=== PATIENT | male | born 1945 | race Caucasian/White ===

== ENCOUNTER 2017-06-13 13:28 | Inpatient (IN) | payer MEDICARE, MEDICAID ==
[~2017-06-13] VITALS: Ht 182.9 cm; Wt 73.5 kg
[~2017-06-13 13:28] MED LIST: ALBU18HF2 INH; AMLO2.5T PO; BECL25SP NS; DIVA500T4 PO; ENAL10TA75 PO; EZET10TA PO; FURO-144 PO; LURA40TA PO; NEPA1.7D OP; NIAC500T2 PO; POTA20TA83 PO; RANI150T8 PO; TAMS-12 PO
--- NOTE | 2017-06-13 13:45 | NUR ---
RADHA PA FROM [facility] FOR ABNORMAL LABS. NAD NOTED. VSS. SEEN BY MD FOR EVAL. SAFETY AND COMFORT MEASURES PROVIDED. WILL MONITOR.
--- NOTE | 2017-06-13 13:53 | NUR ---
laundry laborer at for blood draw.
[2017-06-13 14:01] LABS: BASOPHILS % (AUTO) 0.3 % (0.0-2.0); EOSINOPHILS # (AUTO) 0.2 /CMM (0.0-0.7); HEMATOCRIT 29 % (39-51); HEMOGLOBIN 9.4 g/dL (13.5-17.5); LYMPHOCYTES # (AUTO) 0.9 /CMM (0.8-4.8); LYMPHOCYTES % (AUTO) 18.4 % (20.0-44.0); MEAN CORPUSCULAR HEMOGLOBIN 27 PG (26.0-33.0); MEAN CORPUSCULAR HGB CONC 33 g/dl (31.0-36.0); MEAN CORPUSCULAR VOLUME 81 fL (80-96); MONOCYTES # (AUTO) 0.6 /CMM (0.1-1.30); MONOCYTES % (AUTO) 11.5 % (2.0-12.0); NEUTROPHILS # (AUTO) 3.4 /CMM (1.8-8.9); NEUTROPHILS % (AUTO) 65.8 % (43.0-81.0); PLATELET COUNT (AUTO) 278 /CMM (150-450); RDW COEFFICIENT OF VARIATION 12.5 (11.5-15.0); RED BLOOD CELL COUNT(AUTO) 3.53 MIL/uL (4.5-6.0); WHITE BLOOD COUNT (AUTO) 5.1 K/uL (4.3-11.0)
[2017-06-13 14:15] LABS: ALANINE AMINOTRANSFERASE 22 U/L (12-78); ALBUMIN 3.5 g/dL (3.4-5.0); ALKALINE PHOSPHATASE 93 U/L (46-116); ASPARTATE AMINOTRANSFERASE 24 U/L (15-37); BILIRUBIN,DIRECT 0.1 mg/dL (0.0-0.2); BILIRUBIN,TOTAL 0.2 mg/dL (0.2-1.0); CALCIUM, SERUM 8.2 mg/dL (8.5-10.1); CARBON DIOXIDE 23 mmol/L (21-32); CHLORIDE 86 mmol/L (98-107); CREATININE 1.2 mg/dL (0.6-1.3); GLUCOSE 90 mg/dL (74-106); LIPASE 185 U/L (73-393); POTASSIUM 4.9 mmol/L (3.5-5.1); TOTAL PROTEIN, SERUM 5.9 g/dL (6.4-8.2); UREA NITROGEN, BLOOD 25 mg/dL (7-18)
[2017-06-13 14:16] LABS: SODIUM SERUM 117 mmol/L (136-145)
[2017-06-13 15:27] LABS: APPEARANCE,URINE Clear (CLEAR); BILIRUBIN,URINE Negative (NEGATIVE); BLOOD, URINE Negative Ery/uL (NEGATIVE); COLOR,URINE Light yellow (YELLOW); KETONES,URINE Negative (NEGATIVE); LEUKOCYTE ESTERASE ,URINE Negative (NEGATIVE); NITRITE, URINE Negative (NEGATIVE); PROTEIN,URINE Negative (NEGATIVE); UGLUCOSE Negative (NEGATIVE); UROBILINOGEN,URINE 0.2 EU/dL (0.2)
[2017-06-13] MEDS ORDERED: ALBU2.5V13 NEB (15:44)
[2017-06-13] MEDS ORDERED: IPRA0.2S49 NEB (15:44)
[2017-06-13] MEDS ORDERED: MULT-213 PO (15:44)
[2017-06-13] MEDS ORDERED: MAG30ORA PO (15:44)
[2017-06-13] MEDS ORDERED: ZOLP5TAB7 PO (15:44)
[2017-06-13] MEDS ORDERED: HYDR-552 PO (15:44)
[2017-06-13] MEDS ORDERED: QUET25TA PO (15:44)
[2017-06-13] MEDS ORDERED: OXCA150T5 PO (15:44)
[2017-06-13] MEDS ORDERED: EZET10TA PO (15:46)
[2017-06-13] MEDS ORDERED: SODI1TAB3 PO (15:46)
[2017-06-13] MEDS ORDERED: HYDR-3026 PO (15:46)
--- NOTE | 2017-06-13 16:05 | NUR ---
[id number] TELE Addendum: 06/13/17 at 1606 by SHAD [id number] TELE
[2017-06-13] MEDS ORDERED: IV NS 0.9% 1,000 ML IV PRN (16:58)
[2017-06-13] MEDS ORDERED: ENALAPRIL MALEATE (10 MG) 10 MG TABLET PO SCH (17:00)
[2017-06-13] MEDS ORDERED: QUETIAPINE FUMARATE 25 MG TABLET PO SCH (17:00)
[2017-06-13] MEDS ORDERED: IPRATROPIUM NEB FS 0.5 MG/2.5 ML AMPUL.NEB NEB PRN (17:00)
[2017-06-13] MEDS ORDERED: ALBUTEROL FS 2.5 MG/0.5 ML VIAL.NEB NEB PRN (17:00)
[2017-06-13] MEDS ORDERED: ACETAMINOPHEN 325 MG TABLET PO PRN ×2 (17:00→17:15)
[2017-06-13] MEDS ORDERED: ONDANSETRON HCL/PF 4 MG/2 ML VIAL IVP PRN ×2 (17:00→17:15)
[2017-06-13] MEDS ORDERED: HYDROCODONE/APAP 5/325MG 1 EACH TABLET PO PRN (17:00)
[2017-06-13] MEDS ORDERED: ZOLPIDEM TARTRATE 5 MG TABLET PO PRN ×3 (17:00→17:15)
[2017-06-13] MEDS ORDERED: Z GUARD REMEDY 2 OZ OINT TP PRN ×2 (17:00→17:15)
[2017-06-13] MEDS ORDERED: MAG HYDROX/AL HYDROX/SIMETH 30 ML UDC PO PRN (17:00)
[2017-06-13] MEDS ORDERED: OXCARBAZEPINE 150 MG TABLET PO SCH (17:00)
[2017-06-13] MEDS ORDERED: MAGNESIUM HYDROXIDE 30 ML UDC PO PRN (17:00)
[2017-06-13] MEDS ORDERED: HYDROCODONE/APAP 5/325MG 1 EACH TABLET PO SCH ×2 (17:00→17:15)
--- NOTE | 2017-06-13 17:00 | NUR ---
REPORT GIVEN TO ROSIO ABERNATHY FOR TELE ROOM 315+
--- NOTE | 2017-06-13 17:15 | NUR ---
TELE ADMIT FROM ER AFTER REPORT RECEIVED FROM KIERA ABERNATHY. PATIENT ORIENTED TO PRIMARY RN, UNIT, ROOM, BED, AND UNIT POLICIES REGARDING PATIENT CARE AND VISITING HOURS. PATIENT NOW ON CONTINUOUS TELEMETRY MONITORING. READING ON ARRIVAL IS SR 77 W/ OCCASIONAL PVC'S. PATIENT WEIGHED BY BEDSCALE 161 LBS. AND ENCOURAGED TO CALL IF HE NEEDS ANYTHING. ALL QUESTIONS AND CONCERNS ADDRESSED. PATIENT VERBALIZED UNDERSTANDING.
[2017-06-13] MEDS ORDERED: hydrOXYzine PAMOATE 25 MG CAPSULE PO PRN (18:00)
[2017-06-13] MEDS: SODIUM CHLORIDE 1000 MG TABLET.SOL PO SCH (18:04)
[2017-06-13] MEDS: IV NS 0.9% 1,000 ML IV PRN (18:05)
--- NOTE | 2017-06-13 19:15 | NUR ---
CHANGE OF SHIFT REPORT PT RESTING COMFORTABLY IN BED. NO S/S OR C/O PAIN OR DISTRESS NOTED. SIDE RAILS UP X2, CALL LIGHT LEFT WITHIN REACH. PT KEPT CLEAN, DRY, AND COMFORTABLE. NO SIGNIFICANT CHANGES SINCE ADMISSION. REPORT GIVEN TO HAROON ABERNATHY.
--- NOTE | 2017-06-13 19:30 | NUR ---
MS/RN NOTES PT AWAKE, A/OX3, ON RA, BREATHING EVEN AND UNLABORED. DENIES SOB AND PAIN. HYPERVERBAL. IV TO RIGHT WRIST PATENT AND INTACT RUNNING IVF ORDERED. BED IN LOW/LOCKED POSITION WITH CALL LIGHT IN REACH. SIDE RAILS UPX2. WILL CONTINUE TO MONITOR
[2017-06-13 20:00] VITALS: BP 150/77
[2017-06-13] MEDS ORDERED: TAMSULOSIN 0.4 MG CAP.SR.24H PO SCH (22:00)
[2017-06-13] MEDS ORDERED: EZETIMIBE 10 MG TABLET PO SCH (22:00)
[2017-06-13] MEDS: TAMSULOSIN 0.4 MG CAP.SR.24H PO SCH (22:20)
[2017-06-13] MEDS: EZETIMIBE 10 MG TABLET PO SCH (22:20)
[2017-06-13] MEDS: HYDROCODONE/APAP 5/325MG 1 EACH TABLET PO PRN (23:31)
[2017-06-14] VITALS: BP 135/87
[2017-06-14] MEDS: ZOLPIDEM TARTRATE 5 MG TABLET PO PRN ×2 (01:55→23:59)
--- NOTE | 2017-06-14 06:12 | NUR ---
TELE/RN NOTES RECEIVED CALL FROM KITCHEN REGARDING PT'S DIET ORDER. PT IS ON REGULAR SOFT DIET HOWEVER KITCHEN IS ASKING TO CHANGE DIET ORDER TO JUST SOFT. FOOD OPTIONS THAT COME UP UNDER A REGULAR DIET MAY NOT NEED PT'S NEEDS FOR SOFT FOOD OPTIONS. WILL CHANGE ORDER ACCORDINGLY
--- NOTE | 2017-06-14 07:40 | NUR ---
MS/RN NOTES PT AWAKE, A/OX3, HYPERVERBAL. ON RA, BREATHING EVEN AND UNLABORED. DENIES PAIN, SOB, DISCOMFORT. NO S/S OF DISTRESS. PT PLEASANT AND COOPERATIVE, SWALLOWS PILLS WHOLE WITH WATER. IV TO RIGHT WRIST PATENT AND INTACT RUNNING IVF ORDERED. BED IN LOW/LOCKED POSITION WITH CALL LIGHT IN REACH. MADE PT COMFORTABLE THROUGHOUT SHIFT. ALL NEEDS MET AND ATTENDED. SIDE RAILS UPX2. ENDORSED TO AM SHIFT KARYN.
[2017-06-14 08:00] VITALS: BP 151/76
--- NOTE | 2017-06-14 08:19 | NUR ---
MS/RN OPENING NOTE PATIENT IN BED IN STABLE CONDITION. ALERT AND ORIENTED TIMES 3. ABLE TO MAKE DECISIONS AND NEEDS KNOWN. NO SIGNS OF ACUTE DISTRESS. NO COMPLAIN OF PAIN OR DISCOMFORT. ALL NEEDS ATTENDED TO AT THIS TIME. CALL LIGHT WITHIN REACH. WILL CONTINUE TO MONITOR TO ENSURE SAFETY.
[2017-06-14] MEDS: SODIUM CHLORIDE 1000 MG TABLET.SOL PO SCH ×3 (08:53→17:07)
[2017-06-14] MEDS: HYDROCODONE/APAP 5/325MG 1 EACH TABLET PO PRN ×2 (08:55→21:59)
[2017-06-14] MEDS: QUETIAPINE FUMARATE 25 MG TABLET PO SCH ×3 (08:56→17:01)
[2017-06-14] MEDS: OXCARBAZEPINE 150 MG TABLET PO SCH ×2 (08:56→16:59)
[2017-06-14] MEDS: MULTIVIT, IRON, MIN NO. 8, FA 1 TAB PO SCH (08:56)
[2017-06-14] MEDS: ENALAPRIL MALEATE (10 MG) 10 MG TABLET PO SCH ×2 (09:06→17:00)
[2017-06-14] MEDS: IV NS 0.9% 1,000 ML IV PRN (11:31)
[2017-06-14] MEDS: IPRATROPIUM NEB FS 0.5 MG/2.5 ML AMPUL.NEB NEB PRN (13:47)
[2017-06-14] MEDS: ALBUTEROL FS 2.5 MG/0.5 ML VIAL.NEB NEB PRN (13:47)
[2017-06-14 15:27] LABS: CALCIUM, SERUM 8.1 mg/dL (8.5-10.1); CARBON DIOXIDE 22 mmol/L (21-32); CHLORIDE 94 mmol/L (98-107); GLUCOSE 120 mg/dL (74-106); POTASSIUM 4.5 mmol/L (3.5-5.1); SODIUM SERUM 127 mmol/L (136-145); UREA NITROGEN, BLOOD 26 mg/dL (7-18)
[2017-06-14 16:00] VITALS: BP 130/69
--- NOTE | 2017-06-14 16:31 | NUR ---
MS/RN DR SAN SPOKE WITH DR FERRER AND RELAYED PATIENT'S BMP RESULTS OF SODIUM 127L WITH NO NEW ORDERS.
--- NOTE | 2017-06-14 18:57 | NUR ---
MS/RN CLOSING NOTE PATIENT IN BED AWAKE IN STABLE CONDITION. ALERT AND ORIENTED TIMES 3. NO SIGNS OF ACUTE DISTRESS. NO COMPLAIN OF PAIN OR DISCOMFORT. ALL NEEDS ATTENDED TO. CALL LIGHT WITHIN REACH. WILL ENDORSE TO CHANNEL DIRECTOR FOR CONTINUITY OF CARE.
[2017-06-14 20:00] VITALS: BP 129/72
--- NOTE | 2017-06-14 20:00 | NUR ---
MS VESSEL ENGINEER INITIAL NOTES SEEN PT IN BED RESTING WITH EYES CLOSED, RESPIRATION EVEN AND NON-LABORED, NOT IN ANY DISTRESS NOTED. NO SOB , WITH 02 AT 3LITERS VIA NASAL CANULA. STILL WITH IVF OF NS AT 75ML/HR INFUSING ON HIS RIGHT WRIST, PATENT AND INTACT. DENIES ANY PAIN OR ANY DISCOMFORT AT THIS TIME. KEPT HIM WARM AND COMFORTABLE AT ALL TIMES. PLACE CALL LIGHT AT REACH. WILL CONTINUE TO MONITOR.
[2017-06-14] MEDS: TAMSULOSIN 0.4 MG CAP.SR.24H PO SCH (21:55)
[2017-06-14] MEDS: EZETIMIBE 10 MG TABLET PO SCH (21:55)
--- NOTE | 2017-06-14 23:59 | NUR ---
ACTIVATED SLUDGE OPERATOR/NOTES AMBIEN 5MG GIVEN PER PT REQUESTED. EDUCATE PATIENT REGARDING POSSIBLE SIDE EFFECT AND PT UNDERSTOOD WELL. HE ALSO REQUESTED TO HAVE ANOTHER 5 MG IF HE CAN'T SLEEP BECAUSE HE USUALLY TOOK 10 MG . SPOKE TO HIM THAT I WILL LET MD KNOWS HE'S REQUEST. WILL CONTINUE TO MONITOR. PLACE CALL LIGHT AT REACH.
[2017-06-15] MEDS: ZOLPIDEM TARTRATE 5 MG TABLET PO PRN (01:28)
--- NOTE | 2017-06-15 01:28 | NUR ---
CHEMICAL ENGRAVER/NOTES RE-ASSESSMENT CHECKED PT HE'S STILL AWAKE , ANOTHER AMBIEN GIVEN PER PT REQUESTED. MAALOX ALSO ADMINISTERED FOR DYSPEPSIA. CONTINUE MONITORING .
[2017-06-15] MEDS: MAGNESIUM HYDROXIDE 30 ML UDC PO PRN (01:32)
--- NOTE | 2017-06-15 03:00 | NUR ---
MS DIRECTOR COMMERCIAL SALES NOTES PT CHECKED HE'S SLEEPING COMFORTABLY IN BED AFTER ANOTHER AMBIEN GIVEN ORDERED. WILL CONTINUE TO MONITOR.
[2017-06-15] MEDS: IV NS 0.9% 1,000 ML IV PRN (04:29)
--- NOTE | 2017-06-15 07:00 | NUR ---
MS INDUSTRIAL CUSTODIAN CLOSING NOTES PT AWAKE AT THIS TIME SEEING STANDING BESIDE HIS BED WHILE TALKING TO THE IRRIGATION SYSTEM OPERATOR. SLEPT WELL AFTER AMBIEN GIVEN LAST NIGHT . ALL DUE MEDS GIVEN AND ALL NEEDS MET. IVF STILL INFUSING ON HIS RIGHT WRIST, PATENT AND INTACT. STABLE RICKY THE NIGHT. ENDORSE TO AM NURSE FOR CONTINUITY OF CARE.
[2017-06-15 07:10] LABS: CALCIUM, SERUM 8.3 mg/dL (8.5-10.1); CARBON DIOXIDE 25 mmol/L (21-32); CHLORIDE 97 mmol/L (98-107); CREATININE 0.9 mg/dL (0.6-1.3); GLUCOSE 94 mg/dL (74-106); MAGNESIUM 1.7 mg/dL (1.8-2.4); PHOSPHORUS 4.1 mg/dL (2.5-4.9); POTASSIUM 4.8 mmol/L (3.5-5.1); SODIUM SERUM 127 mmol/L (136-145); UREA NITROGEN, BLOOD 27 mg/dL (7-18)
[2017-06-15 07:24] LABS: URINE SODIUM, RANDOM 76 mmol/l (40-220)
--- NOTE | 2017-06-15 07:33 | NUR ---
RN MS NOTES RECEIVED PATIENT IN BED VERBALLY RESPONSIVE, IN NO APPARENT DISTRESS. PATIENT DENIES PAIN, DENIES SOB. RIGHT WRIST IV LINE PATENT, INFUSING NS AT 75ML/HR. ALL NEEDS MET, CALL LIGHT WITHIN REACH.
[2017-06-15 08:00] VITALS: BP 140/74
[2017-06-15 08:00] LABS: THYROID STIMULATING HORMONE 4.012 uIU/mL (0.358-3.74); URIC ACID 3.3 mg/dL (2.6-7.2)
[2017-06-15] MEDS: MULTIVIT, IRON, MIN NO. 8, FA 1 TAB PO SCH (09:35)
[2017-06-15] MEDS: SODIUM CHLORIDE 1000 MG TABLET.SOL PO SCH ×3 (09:36→17:13)
[2017-06-15] MEDS: QUETIAPINE FUMARATE 25 MG TABLET PO SCH ×3 (09:36→17:14)
[2017-06-15] MEDS: OXCARBAZEPINE 150 MG TABLET PO SCH ×2 (09:36→17:14)
[2017-06-15] MEDS: ENALAPRIL MALEATE (10 MG) 10 MG TABLET PO SCH ×2 (09:36→17:14)
[2017-06-15 09:47] LABS: OSMOLALITY,URINE 312 mOS/kg (340-1090)
--- NOTE | 2017-06-15 10:09 | NUR ---
WOUND CARE CONSULT GUIDE TRAVEL WILL DEFER BACK RASHES TO MD AT THIS TIME. PATIENT WITH CURRENT KOFFI AT 21 AND PER NURSING STAFF PATIENT IS AMBULATORY. WILL SEE PRN.
[2017-06-15] MEDS: IPRATROPIUM NEB FS 0.5 MG/2.5 ML AMPUL.NEB NEB PRN (10:29)
[2017-06-15] MEDS: ALBUTEROL FS 2.5 MG/0.5 ML VIAL.NEB NEB PRN ×2 (10:29→20:29)
[2017-06-15] MEDS: HYDROCODONE/APAP 5/325MG 1 EACH TABLET PO PRN ×3 (12:34→22:01)
[2017-06-15] MEDS: Magnesium 1GM/D5W 100ML PREMIX 100 ML IV SCH ×2 (13:26→14:45)
[2017-06-15 16:00] VITALS: BP 121/60
--- NOTE | 2017-06-15 19:20 | NUR ---
RN MS CLOSING NOTES PATIENT IN BED,VERBALLY RESPONSIVE, NO APPARENT DISTRESS NOTED, DENIES PAIN, DENIES SOB. ALL DUE MEDS GIVEN ALL NEEDS MET. WILL ENDORSE CARE TO PM SHIFT.
--- NOTE | 2017-06-15 19:25 | NUR ---
MS RN NOTES RECEIVED ON BED A/O X3,BREATHING REGULAR,AMBULATE WITH ASSIST.PATIENT IS A POOR HISTORIAN.SALINE LOCK RIGHT WRIST INTACT AND PATENT.DENIES DISCOMFORTS AT THE MOMENT.CALL LIGHT IN REACH,NEEDS ANTICIPATED.
[2017-06-15 20:03] VITALS: BP 145/67
[2017-06-15 20:11] VITALS: BP 145/67
[2017-06-15] MEDS: MAG HYDROX/AL HYDROX/SIMETH 30 ML UDC PO PRN (20:13)
--- NOTE | 2017-06-15 20:13 | NUR ---
MS RN NOTES FEELING HAVING ACID REFLUX,MAALOX 30ML PO ADMINISTERED PER PATIENT REQUEST.
[2017-06-15] MEDS: TAMSULOSIN 0.4 MG CAP.SR.24H PO SCH (21:58)
[2017-06-15] MEDS: EZETIMIBE 10 MG TABLET PO SCH (21:58)
--- NOTE | 2017-06-15 22:01 | NUR ---
MS RN NOTES PAIN MANAGEMENT C/O GENERALIZED PAIN 7/10 ON PAIN SCALE.NORCO 5/325MG 1 TAB PO GIVEN
--- NOTE | 2017-06-16 | NUR ---
MS RN NOTES SILL AWAKE,WATCHING TV PROGRAM.PAIN SUBSIDED
[2017-06-16] MEDS: ALBUTEROL FS 2.5 MG/0.5 ML VIAL.NEB NEB PRN ×2 (01:42→13:20)
[2017-06-16] MEDS: ZOLPIDEM TARTRATE 5 MG TABLET PO PRN (02:00)
[2017-06-16] MEDS ORDERED: diphenhydrAMINE HCL 50 MG CAPSULE ONE (02:04)
[2017-06-16] MEDS: HYDROCODONE/APAP 5/325MG 1 EACH TABLET PO PRN ×3 (02:04→16:07)
--- NOTE | 2017-06-16 02:04 | NUR ---
MS RN NOTES C/O INSOMNIA.AMBIEN 5MG PO GIVEN
--- NOTE | 2017-06-16 02:05 | NUR ---
MS RN NOTES C/O GENERALIZED PAIN,NORCO 5/325MG 1 TAB PO GIVEN
[2017-06-16] MEDS: diphenhydrAMINE HCL 50 MG CAPSULE PO PRN ×2 (02:07→15:25)
--- NOTE | 2017-06-16 02:07 | NUR ---
MS RN NOTES C/O ITCHINESS,MEDICATED WITH BENADRYL 50MG PO NEW ORDER FOR ITCHINESS
[2017-06-16 06:40] LABS: CALCIUM, SERUM 8.5 mg/dL (8.5-10.1); CARBON DIOXIDE 23 mmol/L (21-32); CHLORIDE 96 mmol/L (98-107); GLUCOSE 93 mg/dL (74-106); MAGNESIUM 2.1 mg/dL (1.8-2.4); SODIUM SERUM 128 mmol/L (136-145); UREA NITROGEN, BLOOD 32 mg/dL (7-18)
--- NOTE | 2017-06-16 06:52 | NUR ---
MS RN NOTES SLEPT ONLY ABOUT 3 HOURS AT NIGHT.A/O X2-3.POOR HISTORIAN,CALL LIGHT IN REACH,NEEDS ATTENDED.IN NO ACUTE DISTRESS.CALL LIGHT IN REACH,NEEDS ATTENDED,
--- NOTE | 2017-06-16 07:10 | NUR ---
MS RN OPENING NOTES RECEIVED PT FROM NIGHTSHIFT NURSE IN STABLE CONDITION. PT IS A/O X3. NO SOB OR SIGNS OF DISTRESS NOTED. BREATHING IS EVEN AND UNLABORED. PT REQUEST PRN NORCO MEDICATION FOR GENERALIZED PAIN. RTES HIS PAIN 03/25. VITAL SIGNS WNL. WILL ADMINISTER PRN PAIN MEDICATION. IV PRESENT ON RIGHT WRIST 20G H/L. IV IS PATENT TO NS FLUSH, DRY, AND INTACT. NO REDNESS OR SIGNS OF INFILTRATION NOTED. BED IN LOW LOCKED POSITION, SIDE RAILS UP X2, CALL LIGHT WITHIN EASY REACH. WILL CONTINUE TO MONITOR.
[2017-06-16 08:00] VITALS: BP 147/77
[2017-06-16] MEDS: SODIUM CHLORIDE 1000 MG TABLET.SOL PO SCH ×2 (08:37→12:06)
[2017-06-16] MEDS: QUETIAPINE FUMARATE 25 MG TABLET PO SCH ×2 (08:37→12:06)
[2017-06-16] MEDS: MULTIVIT, IRON, MIN NO. 8, FA 1 TAB PO SCH (08:38)
[2017-06-16] MEDS: OXCARBAZEPINE 150 MG TABLET PO SCH (08:38)
[2017-06-16] MEDS: ENALAPRIL MALEATE (10 MG) 10 MG TABLET PO SCH (08:39)
[2017-06-16] MEDS: MAG HYDROX/AL HYDROX/SIMETH 30 ML UDC PO PRN (11:42)
[2017-06-16] MEDS: MAGNESIUM HYDROXIDE 30 ML UDC PO PRN (11:42)
[2017-06-16] MEDS: IPRATROPIUM NEB FS 0.5 MG/2.5 ML AMPUL.NEB NEB PRN (13:20)
[2017-06-16 16:07] VITALS: BP 138/58
--- NOTE | 2017-06-16 16:30 | NUR ---
MS HUMAN RESOURCE MANAGER NOTES PT. WAS DISCHARGED FROM UNIT IN STABLE CONDITION. REPORT WAS GIVEN TO RYAN THE NURSING RN FIELD AT [facility]. PT. LEFT VIA AMBULANCE TRANSPORT. PT SIGNED ALL DISCHARGE PAPERWORK AND EXPRESSED UNDERSTANDING OF DISCHARGE INSTRUCTIONS. ALL BELONGINGS WERE TAKEN WITH THE PT. ALL NEEDS WERE MET DURING SHIFT AND ORDERS CARRIED OUR ACCORDINGLY.
== END 2017-06-16 16:29 | DRG 643 ==
LOC: ER 13:29 → TELE 17:32 → MED 21:24
PROVIDERS: ADMIT Internal Medicine; ATTEND Internal Medicine
DX: E22.2 Syndrome of inappropriate secretion of antidiuretic hormone (principal); N17.0 Acute kidney failure with tubular necrosis; J44.9 Chronic obstructive pulmonary disease, unspecified; E78.5 Hyperlipidemia, unspecified; M19.90 Unspecified osteoarthritis, unspecified site; F17.210 Nicotine dependence, cigarettes, uncomplicated; G30.9 Alzheimer's disease, unspecified; F02.80 Dementia in other diseases classified elsewhere, unspecified severity, without behavioral disturbance, psychotic disturbance, mood disturbance, and anxiety; I10 Essential (primary) hypertension; F43.10 Post-traumatic stress disorder, unspecified; T42.1X5A Adverse effect of iminostilbenes, initial encounter; T42.6X5A Adverse effect of other antiepileptic and sedative-hypnotic drugs, initial encounter; Y92.009 Unspecified place in unspecified non-institutional (private) residence as the place of occurrence of the external cause; R63.1 Polydipsia; F20.9 Schizophrenia, unspecified
CPT/HCPCS: 36415; 80048-TC; 80076-TC; 81000-TC; 83690-TC; 83735-TC; 83935-TC; 84100-TC; 84300-TC; 84443-TC; 84550-TC; 85025-TC; 87081-TC; A4606; A6402; J3475; J7030; Q0163; Z7610

== ENCOUNTER 2017-06-19 23:43 | Inpatient (IN) | payer MEDICARE, MEDICAID ==
[~2017-06-19] VITALS: Ht 172.7 cm; Wt 73.1 kg
[~2017-06-19 23:43] MED LIST changes: -ALBU18HF2 INH; +ALBU2.5V13 NEB; -AMLO2.5T PO; -BECL25SP NS; -DIVA500T4 PO; -FURO-144 PO; +HYDR-3026 PO; +HYDR-552 PO; +IPRA0.2S49 NEB; -LURA40TA PO; +MAG30ORA PO; +MULT-213 PO; -NEPA1.7D OP; -NIAC500T2 PO; +OXCA150T5 PO; -POTA20TA83 PO; +QUET25TA PO; -RANI150T8 PO; +SODI1TAB3 PO; +ZOLP5TAB7 PO
--- NOTE | 2017-06-19 23:50 | NUR ---
TO BED 1 [facility] PRIVATE AMBULANCE C/O R EYEBROW LACERATION S/P GLF PER PT REPORT. RECEIVE PT AAOX4 NO ACUTE DISTRESS NOTED, RESP EVEN AND UNLABORED. PLACE PT ON CARDIAC MONITORING, CONTINUOUS POX. ER MD AT BEDSIDE TO EVAL PT.
[2017-06-20] VITALS (7 sets, daily range): BP systolic 104–160; BP diastolic 58–83
--- NOTE | 2017-06-20 00:13 | NUR ---
STARTED SL 18G TO R FOREARM, BLOOD DRAWN AND SENT TO LAB.
[2017-06-20 00:36] LABS: BASOPHILS % (AUTO) 0.3 % (0.0-2.0); EOSINOPHILS % (AUTO) 0.2 % (0.0-6.0); HEMATOCRIT 37 % (39-51); HEMOGLOBIN 12.3 g/dL (13.5-17.5); LYMPHOCYTES # (AUTO) 2.6 /CMM (0.8-4.8); LYMPHOCYTES % (AUTO) 23.3 % (20.0-44.0); MEAN CORPUSCULAR HEMOGLOBIN 28 PG (26.0-33.0); MEAN CORPUSCULAR HGB CONC 34 g/dl (31.0-36.0); MEAN CORPUSCULAR VOLUME 84 fL (80-96); MONOCYTES # (AUTO) 0.5 /CMM (0.1-1.30); MONOCYTES % (AUTO) 4.5 % (2.0-12.0); NEUTROPHILS # (AUTO) 8.1 /CMM (1.8-8.9); NEUTROPHILS % (AUTO) 71.7 % (43.0-81.0); PLATELET COUNT (AUTO) 275 /CMM (150-450); RED BLOOD CELL COUNT(AUTO) 4.35 MIL/uL (4.5-6.0); WHITE BLOOD COUNT (AUTO) 11.3 K/uL (4.3-11.0)
[2017-06-20 00:45] LABS: CALCIUM, SERUM 8.9 mg/dL (8.5-10.1); CARBON DIOXIDE 23 mmol/L (21-32); CHLORIDE 92 mmol/L (98-107); CREATININE 1.2 mg/dL (0.6-1.3); GLUCOSE 122 mg/dL (74-106); POTASSIUM 4.5 mmol/L (3.5-5.1); SODIUM SERUM 123 mmol/L (136-145); UREA NITROGEN, BLOOD 30 mg/dL (7-18)
--- NOTE | 2017-06-20 00:57 | NUR ---
PT TRANSPORTED TO RADIOLOGY FOR CT.
[2017-06-20 01:07] LABS: BILIRUBIN,DIRECT 0.1 mg/dL (0.0-0.2); BILIRUBIN,TOTAL 0.4 mg/dL (0.2-1.0)
[2017-06-20 01:08] LABS: ALANINE AMINOTRANSFERASE 26 U/L (12-78); ALBUMIN 3.7 g/dL (3.4-5.0); ALKALINE PHOSPHATASE 97 U/L (46-116); ASPARTATE AMINOTRANSFERASE 25 U/L (15-37); TOTAL PROTEIN, SERUM 6.5 g/dL (6.4-8.2)
[2017-06-20 01:18] LABS: INR 0.92 (0.87-1.13); PROTHROMBIN TIME 9.8 SECS (9.5-12.7); TROPONIN I < 0.017 ng/mL (0.00-0.056)
[2017-06-20] MEDS ORDERED: IV NS 0.9% 1,000 ML BAG IV ONE (02:00)
--- NOTE | 2017-06-20 02:51 | NUR ---
ER SPOKE TO [facility] TRAN DNP REGARDING PT ADMISSION.
[2017-06-20] MEDS ORDERED: MAG HYDROX/AL HYDROX/SIMETH 30 ML UDC PO PRN (03:00)
[2017-06-20] MEDS ORDERED: IV NS 0.9% 1,000 ML IV PRN (03:02)
--- NOTE | 2017-06-20 03:17 | NUR ---
REPORT CALLED TO [facility]ER[facility] LEON. WILL TRANSPORT PT VIA ACLS PROTOCOL.
[2017-06-20 03:28] LABS: APPEARANCE,URINE CLEAR (CLEAR); BILIRUBIN,URINE NEGATIVE (NEGATIVE); COLOR,URINE YELLOW (YELLOW); KETONES,URINE NEGATIVE (NEGATIVE); LEUKOCYTE ESTERASE ,URINE NEGATIVE (NEGATIVE); NITRITE, URINE NEGATIVE (NEGATIVE); PH,URINE 6.5 (5.0-8.0); PROTEIN,URINE NEGATIVE (NEGATIVE); UGLUCOSE NEGATIVE (NEGATIVE); UROBILINOGEN,URINE 0.2 EU/dL (0.2)
[2017-06-20] MEDS ORDERED: ONDANSETRON HCL/PF 4 MG/2 ML VIAL IVP PRN (03:30)
[2017-06-20] MEDS ORDERED: MORPHINE SULFATE INJ 4 MG/ML DISP.SYRIN IV PRN (03:30)
--- NOTE | 2017-06-20 03:30 | NUR ---
RN OPEN NOTES RECEIVED PATIENT FROM ER VIA GURODNEY. A/O X3. NO SIGNS OF DISTRESS OR DISCOMFORT. BREATHING EVEN AND UNLABORED. IV ACCESS IN RFA WITH NS INFUSING, PATENT AND INTACT, NO SIGNS OF REDNESS OR INFILTRATION. ORIENTED PATIENT TO UNIT AND ROOM. BED IN LOW LOCKED POSITION. CALL LIGHT WITHIN REACH. WILL CONTINUE TO MONITOR.
[2017-06-20 03:34] LABS: BLOOD, URINE NEGATIVE Ery/uL (NEGATIVE)
[2017-06-20] MEDS ORDERED: ENOXAPARIN SODIUM 40 MG/0.4 ML DISP.SYRIN SQ ONE (04:12)
[2017-06-20] MEDS ORDERED: HYDROCODONE/APAP 5/325MG 1 EACH TABLET ONE (04:13)
[2017-06-20 04:18] LABS: CALCIUM, SERUM 8.6 mg/dL (8.5-10.1); CARBON DIOXIDE 22 mmol/L (21-32); CHLORIDE 95 mmol/L (98-107); CREATININE 1.1 mg/dL (0.6-1.3); GLUCOSE 117 mg/dL (74-106); POTASSIUM 4.3 mmol/L (3.5-5.1); SODIUM SERUM 127 mmol/L (136-145); UREA NITROGEN, BLOOD 26 mg/dL (7-18)
[2017-06-20] MEDS: HYDROCODONE/APAP 5/325MG 1 EACH TABLET PO PRN ×4 (04:21→22:51)
--- NOTE | 2017-06-20 04:21 | NUR ---
RN NOTES ADMINISTERED NORCO 5/325 ORDERED FOR GENERALIZED PAIN. VSS. WILL CONTINUE TO MONITOR.
[2017-06-20] MEDS: ENOXAPARIN SODIUM 40 MG/0.4 ML DISP.SYRIN SQ SCH (04:22)
--- NOTE | 2017-06-20 06:53 | NUR ---
RN CLOSING NOTES PATIENT RESTING IN BED, EASILY AROUSABLE TO NAME. A/O X3. NO SIGNS OF DISTRESS OR DISCOMFORT. BREATHING EVEN AND UNLABORED. IV ACCESS IN RFA WITH NS INFUSING PATIENT AND INTACT, NO SIGNS OF REDNESS OR INFILTRATION. BED IN LOW LOCKED POSITION WITH SIDE RAILS X2. CALL LIGHT WITHIN REACH. WILL ENDORSE TO AM SHIFT FOR KARYN. .
--- NOTE | 2017-06-20 07:20 | NUR ---
RN NOTES PATIENT RESTING IN BED, EASILY AROUSABLE TO NAME. A/O X3. NO SIGNS OF DISTRESS OR DISCOMFORT. BREATHING EVEN AND UNLABORED. IV ACCESS IN RFA WITH NS INFUSING PATIENT AND INTACT, NO SIGNS OF REDNESS OR INFILTRATION. BED IN LOW LOCKED POSITION WITH SIDE RAILS X2. CALL LIGHT WITHIN REACH. WILL CONTINUE TO MONITOR ACCORDINGLY.
[2017-06-20] MEDS ORDERED: OXCARBAZEPINE 150 MG TABLET PO SCH (09:00)
[2017-06-20] MEDS: SODIUM CHLORIDE 1000 MG TABLET.SOL PO SCH ×3 (09:51→18:02)
[2017-06-20] MEDS: MULTIVITAMINS,THERAGRAN 1 UDTAB TABLET PO SCH (09:52)
[2017-06-20] MEDS: QUETIAPINE FUMARATE 25 MG TABLET PO SCH ×3 (09:52→18:04)
[2017-06-20] MEDS: ENALAPRIL MALEATE (10 MG) 10 MG TABLET PO SCH ×2 (09:53→17:00)
[2017-06-20] MEDS: IV NS 0.9% 1,000 ML IV PRN (13:07)
[2017-06-20] MEDS: IPRATROPIUM NEB FS 0.5 MG/2.5 ML AMPUL.NEB NEB PRN ×2 (15:04→19:54)
[2017-06-20] MEDS: ALBUTEROL FS 2.5 MG/0.5 ML VIAL.NEB NEB PRN ×2 (15:04→19:54)
[2017-06-20 15:38] LABS: THYROID STIMULATING HORMONE 2.346 uIU/mL (0.358-3.74)
--- NOTE | 2017-06-20 19:00 | NUR ---
RN NOTES PATIENT IN BED RESTING. NO ACUTE DISTRESS, NO SOB NOTED. DENIES PAIN AT THE MOMENT. ALL NEEDS ATTENDED AND PROVIDED. KEPT PATIENT SAFE AND COMFORTABLE. BED LOW POSITION, SIDERAILS UPX2, CALL LIGHT IN REACH. ENDORSED TO DIRECTOR OF BROADCAST RN FOR CONTINUITY OF CARE.
[2017-06-20] MEDS: hydrOXYzine 10 MG TABLET PO PRN (19:17)
--- NOTE | 2017-06-20 19:30 | NUR ---
MS RN NOTES RECEIVED SITTING ON BED,A/O X2-3,FORGETFUL AT TIMES,SALINE LOCK RFA INTACT AND PATENT,INFUSING IVF NS AT 100ML/HR RATE.O2 SAT 97% ON ROOM AIR.WITH SLIGHT TEMP OF 100.AMBULATE WITH WALKER.CALL LIGHT IN REACH,NEEDS ANTICIPATED.
[2017-06-20] MEDS ORDERED: EZETIMIBE 10 MG TABLET PO SCH (22:00)
[2017-06-20] MEDS: TAMSULOSIN 0.4 MG CAP.SR.24H PO SCH (22:37)
--- NOTE | 2017-06-20 22:51 | NUR ---
MS RN NOTES PAIN MANAGEMENT C/O LOWER BACK PAIN 7/10 ON PAIN SCALE.MEDICATED WITH NORCO 5/325MG,1 TAB PO ORDERED.WILL MONITOR FOR RELIEF.
[2017-06-21] MEDS: IPRATROPIUM NEB FS 0.5 MG/2.5 ML AMPUL.NEB NEB PRN ×5 (00:10→23:13)
[2017-06-21] MEDS: ALBUTEROL FS 2.5 MG/0.5 ML VIAL.NEB NEB PRN ×5 (00:10→23:13)
[2017-06-21] MEDS: hydrOXYzine 10 MG TABLET PO PRN ×2 (01:19→13:40)
[2017-06-21] MEDS: ZOLPIDEM TARTRATE 5 MG TABLET PO PRN ×2 (01:20→23:43)
--- NOTE | 2017-06-21 03:00 | NUR ---
MS RN NOTES PAIN MANAGEMENT AWAKE,C/O BACK PAIN 7/10 ON PAIN SCALE.MEDICATED WITH NORCO 5/325MG,1 TAB PO ORDERED
[2017-06-21] MEDS: HYDROCODONE/APAP 5/325MG 1 EACH TABLET PO PRN ×3 (03:04→13:39)
[2017-06-21] MEDS: ENOXAPARIN SODIUM 40 MG/0.4 ML DISP.SYRIN SQ SCH (03:05)
--- NOTE | 2017-06-21 03:10 | NUR ---
MS RN NOTES DUE LOVENOX 40MG GIVEN SQ VIA RIGHT LOWER ABDOMEN
[2017-06-21] MEDS: IV NS 0.9% 1,000 ML IV PRN (04:33)
[2017-06-21 06:12] VITALS: BP_SYST 108; BP_SYST 110; BP_SYST 112; BP_DIAS 48; BP_DIAS 51
--- NOTE | 2017-06-21 06:47 | NUR ---
MS RN NOTES SLEPT WITH INTERVAL,AWAKE MOST OF THE NIGHT EVEN WITH SLEEPING PILL.FALL PRECAUTION OBSERVED,AMBULATE WITH ASSIST,IVF INFUSING,CALL LIGHT IN REACH,NEEDS ATTENDED.WILL ENDORSE TO DAY NURSE FOR KARYN.
[2017-06-21 06:48] LABS: OSMOLALITY,URINE 314 mOS/kg (340-1090)
[2017-06-21 06:59] LABS: URINE SODIUM, RANDOM 79 mmol/l (40-220)
[2017-06-21 07:08] LABS: BASOPHILS # (AUTO) 0.1 /CMM (0.0-0.2); BASOPHILS % (AUTO) 1.2 % (0.0-2.0); EOSINOPHILS # (AUTO) 0.4 /CMM (0.0-0.7); EOSINOPHILS % (AUTO) 8.4 % (0.0-6.0); HEMATOCRIT 28 % (39-51); HEMOGLOBIN 9.2 g/dL (13.5-17.5); LYMPHOCYTES # (AUTO) 0.5 /CMM (0.8-4.8); LYMPHOCYTES % (AUTO) 11.6 % (20.0-44.0); MEAN CORPUSCULAR HEMOGLOBIN 28 PG (26.0-33.0); MEAN CORPUSCULAR HGB CONC 34 g/dl (31.0-36.0); MEAN CORPUSCULAR VOLUME 82 fL (80-96); MONOCYTES # (AUTO) 0.4 /CMM (0.1-1.30); MONOCYTES % (AUTO) 8.8 % (2.0-12.0); PLATELET COUNT (AUTO) 186 /CMM (150-450); RDW COEFFICIENT OF VARIATION 13.6 (11.5-15.0); RED BLOOD CELL COUNT(AUTO) 3.34 MIL/uL (4.5-6.0); WHITE BLOOD COUNT (AUTO) 4.3 K/uL (4.3-11.0)
[2017-06-21 07:23] LABS: ALANINE AMINOTRANSFERASE 34 U/L (12-78); ALBUMIN 3.3 g/dL (3.4-5.0); ALKALINE PHOSPHATASE 98 U/L (46-116); ASPARTATE AMINOTRANSFERASE 31 U/L (15-37); BILIRUBIN,TOTAL 0.3 mg/dL (0.2-1.0); CALCIUM, SERUM 8.3 mg/dL (8.5-10.1); CARBON DIOXIDE 23 mmol/L (21-32); CHLORIDE 96 mmol/L (98-107); CREATININE 0.9 mg/dL (0.6-1.3); GLUCOSE 93 mg/dL (74-106); MAGNESIUM 1.4 mg/dL (1.8-2.4); PHOSPHORUS 3.4 mg/dL (2.5-4.9); POTASSIUM 4.4 mmol/L (3.5-5.1); SODIUM SERUM 127 mmol/L (136-145); TOTAL PROTEIN, SERUM 6.2 g/dL (6.4-8.2); UREA NITROGEN, BLOOD 20 mg/dL (7-18)
[2017-06-21 07:27] LABS: CHOLESTEROL 114 mg/dL (<200); HDL CHOLESTEROL 79 mg/dL (40-60); LDL 28 mg/dL (0-99); THYROID STIMULATING HORMONE 5.334 uIU/mL (0.358-3.74); TRIGLYCERIDES 27 mg/dL (30-150); URIC ACID 3.8 mg/dL (2.6-7.2)
[2017-06-21 07:48] LABS: IRON, SERUM 11 ug/dl (50-175); TOTAL IRON BINDING CAPACITY 286 ug/dl (250-450)
[2017-06-21 08:00] VITALS: BP 145/70
--- NOTE | 2017-06-21 08:22 | NUR ---
RN MS NOTES PT SEEN BY DR. HER, ORDER GIVEN TO CHANGE DIET TO REGULAR DIET, NOTED AND CARRIED OUT.
[2017-06-21] MEDS: MULTIVITAMINS,THERAGRAN 1 UDTAB TABLET PO SCH (08:33)
[2017-06-21] MEDS: QUETIAPINE FUMARATE 25 MG TABLET PO SCH ×3 (08:35→16:31)
[2017-06-21] MEDS: ENALAPRIL MALEATE (10 MG) 10 MG TABLET PO SCH ×2 (08:35→16:31)
[2017-06-21] MEDS: SODIUM CHLORIDE 1000 MG TABLET.SOL PO SCH ×3 (08:35→16:31)
--- NOTE | 2017-06-21 10:15 | NUR ---
RN MS NOTES PT AWAKE, AMBULATES INSIDE HIS ROOM, SEEN BY DR. VALDIVIA, PT REFUSED CT OF THE SPINE TODAY, SAYS HE PREFERS TO HAVE MRI, DR. VALDIVIA INFORMED, PER MD, OK NOT TO DO CT OR MRI, PLAN OF CARE DISCUSSED WITH PT, VERBALIZED UNDERSTANDING, MD ALSO ORDERED PSYCH AND WOUND CONSULT FOR PT.
[2017-06-21] MEDS: Magnesium 1GM/D5W 100ML PREMIX 100 ML IV SCH ×4 (11:49→17:52)
--- NOTE | 2017-06-21 13:23 | NUR ---
WOUND CARE CONSULT: PT REFUSED FULL SKIN ASSESSMENT. PT WEARING BACK BRACE. PT STATES HAS RASH ON HIS BACK BUT REFUSED TO ALLOW ASSESSMENT. DEFER TO MD FOR RASH. RECOMMENDATIONS MADE FOR SKIN PROTECTION AND DISCUSSED WITH NURSING STAFF. PT IS CONTINENT AND AMBULATORY. WILL SEE PRN. HUTTON IN AGREEMENT WITH PLAN OF CARE. Addendum: 06/21/17 at 1327 by ЮЛИЯ RICARDO WNDNU Amended: Links added.
[2017-06-21] MEDS ORDERED: Z GUARD REMEDY 2 OZ OINT TP PRN (13:30)
[2017-06-21] MEDS: SOD FERRIC GLUC 125 MG in IV NS 0.9% 100 ML IV SCH (15:05)
[2017-06-21] MEDS: Z GUARD REMEDY 2 OZ OINT TP SCH (15:14)
[2017-06-21 16:17] VITALS: BP 166/78
[2017-06-21] MEDS: ACETAMINOPHEN 325 MG TABLET PO PRN (16:30)
--- NOTE | 2017-06-21 19:00 | NUR ---
RN MS NOTES PT IN BED, AWAKE, ALERT AND ORIENTED, NO COMPLAINT OF PAIN, NOT IN DISTRESS, PT ABLE TO AMBULATE INSIDE HIS ROOM, PM MEDS GIVEN, SEEN BY DR. MICHAELS, ORDERS NOTED AND CARRIED OUT, ALL NEEDS ATTENDED, CALL LIGHT WITHIN REACH AT ALL TIMES.
--- NOTE | 2017-06-21 19:30 | NUR ---
RN NOTES RECEIVED PT. AWAKE ON BED, A/OX 3 WITH CONFUSION, AMBULATE WITH WALKER, REFUSED TO HAVE BODY CHECK, DENIES PAIN, NO SOB, ALL LIGTH WITHIN REACH, SIDERAILS UPX2 , CONTINUE TO MONITOR
[2017-06-21 20:00] VITALS: BP 148/75
[2017-06-21] MEDS: TAMSULOSIN 0.4 MG CAP.SR.24H PO SCH (21:51)
--- NOTE | 2017-06-21 22:50 | NUR ---
RN NOTES SPOKE TO DR. BEARD AND INFORM HIM REGARDING PT. REFUSING FOR THE PROCEDURE. DR. BEARD STILL WANT TO KEEP PT. ON NPO EXCEPT MEDS. ORDER NOTED AND CARRIED OUT
--- NOTE | 2017-06-21 23:35 | NUR ---
RN NOTES SPOKE TO DR. BALLARD AND INFORMED HIM THAT PT. IS FOR EGD TOMORROW. DR. BALLARD HOLD THE LOVENOX FOR SARA , CHRIS NOTED AND CARRIED OUT
--- NOTE | 2017-06-21 23:45 | NUR ---
RN NOTES PT. ASKED FOR SLEEPING PILL- AMBIEN 5 MG PO GIVEN ORDERED, V/S STABLE
[2017-06-22] MEDS: ALBUTEROL FS 2.5 MG/0.5 ML VIAL.NEB NEB PRN ×3 (03:12→13:52)
[2017-06-22] MEDS: IPRATROPIUM NEB FS 0.5 MG/2.5 ML AMPUL.NEB NEB PRN ×3 (03:12→13:52)
[2017-06-22] MEDS: ENOXAPARIN SODIUM 40 MG/0.4 ML DISP.SYRIN SQ SCH (03:30)
[2017-06-22] MEDS: HYDROCODONE/APAP 5/325MG 1 EACH TABLET PO PRN ×4 (03:38→22:03)
--- NOTE | 2017-06-22 03:39 | NUR ---
RN NOTES COMPLAINED OF GENERALIZED PAIN- NORCO 5/325 MG PO GIVEN ORDERED, V/S STABLE
[2017-06-22] MEDS: ACETAMINOPHEN 325 MG TABLET PO PRN (04:40)
--- NOTE | 2017-06-22 04:41 | NUR ---
RN NOTES COMPLAINED OF HEADACHE AND ASKING FOR TYLENOL - TYLENOL 650M GPO GIVEN ORDERED, V/S STABLE
[2017-06-22 06:19] VITALS: BP_SYST 150; BP_SYST 152; BP_SYST 164; BP_DIAS 65; BP_DIAS 67; BP_DIAS 75
--- NOTE | 2017-06-22 06:54 | NUR ---
RN NOTES ELECTRIC TRAIN DRIVER CAME AND READY TO HOME THERAPY TEACHER THE PT. PT DENIES PAIN, NO SOB, MORNING CARE RENDERED, IV LINE PATENT NO REDNESS OR SWOLLEN, PT NEEDS ATTENDED. ENDORSED TO DAYSHIFT NURSE FOR CONTINUITY OF CARE
[2017-06-22 07:38] LABS: CALCIUM, SERUM 8.8 mg/dL (8.5-10.1); CARBON DIOXIDE 20 mmol/L (21-32); CHLORIDE 99 mmol/L (98-107); GLUCOSE 101 mg/dL (74-106); MAGNESIUM 2.1 mg/dL (1.8-2.4); SODIUM SERUM 130 mmol/L (136-145); UREA NITROGEN, BLOOD 28 mg/dL (7-18)
[2017-06-22 08:25] VITALS: BP 149/73
--- NOTE | 2017-06-22 08:25 | NUR ---
RN MS NOTES PT BACK FROM [facility]. VIA CONG WITH O.R. STAFF, PT AWAKE, VERBALLY RESPONSIVE, NO COMPLAINT OF PAIN, NOT IN DISTRESS, POST PROCEDURE ORDERS NOTED AND CARRIED OUT, PT SEEN BY DR. HER, ORDERS GIVEN.
[2017-06-22 08:40] VITALS: BP 127/91
[2017-06-22 09:10] VITALS: BP 146/96
[2017-06-22] MEDS: SODIUM CHLORIDE 1000 MG TABLET.SOL PO SCH ×3 (09:31→17:21)
[2017-06-22] MEDS: QUETIAPINE FUMARATE 25 MG TABLET PO SCH ×3 (09:31→17:22)
[2017-06-22] MEDS: ENALAPRIL MALEATE (10 MG) 10 MG TABLET PO SCH ×2 (09:32→17:23)
[2017-06-22] MEDS: MULTIVITAMINS,THERAGRAN 1 UDTAB TABLET PO SCH (09:32)
[2017-06-22] MEDS: Z GUARD REMEDY 2 OZ OINT TP SCH (09:33)
[2017-06-22] MEDS: NITROGLYCERIN 30 GM TUBE TP SCH ×2 (10:31→22:01)
[2017-06-22] MEDS: hydrOXYzine 10 MG TABLET PO PRN (11:13)
[2017-06-22] MEDS ORDERED: MAGNESIUM CITRATE 296 ML BOTTLE PO PRN (11:30)
[2017-06-22] MEDS ORDERED: NA PHOS,M-B/NA PHOS,DI-BA 1 EA ENEMA RC PRN (11:30)
--- NOTE | 2017-06-22 13:00 | NUR ---
RN MS NOTES PT IN BED, AWAKE, ALERT AND ORIENTED, NO COMPLAINT AT THIS TIME, PT SEEN BY DR. SAUCEDO, CALL LIGHT WITHIN REACH, NEEDS ATTENDED IN A TIMELY MANNER, ON CLEAR LIQUID DIET, TOLERATING WELL, NEEDS ATTENDED.
[2017-06-22] MEDS ORDERED: PEG 3350/NA SULF,BICARB,CL/KCL 4,000 ML BOTTLE PO ONE (14:00)
[2017-06-22] MEDS ORDERED: QUETIAPINE FUMARATE 25 MG TABLET PO PRN (15:30)
[2017-06-22 16:00] VITALS: BP 123/66
[2017-06-22] MEDS: SOD FERRIC GLUC 125 MG in IV NS 0.9% 100 ML IV SCH (16:00)
--- NOTE | 2017-06-22 18:14 | NUR ---
RN MS NOTES PT IN BED, RESTING, PAIN MEDICATION GIVEN FOR PAIN MANAGEMENT, NOT IN DISTRESS, PT HAS BEEN DRINKING GOLYTELY, COMPLIANT WITH INSTRUCTIONS, NO BM AT THIS TIME, MAG CITRATE GIVEN, STILL NO BM, PER PT ITS ONLY GAS, INSTRUCTED PT TO CONTINUOUSLY DRINK GOLYTELY, VERBALIZED UNDERSTANDING, WILL CONTINUE TO MONITOR.
--- NOTE | 2017-06-22 19:30 | NUR ---
MS RN INITIAL NOTE RECEIVED PT AWAKE AND ALERT WITH EPISODES OF CONFUSION, NO SIGNS OF PAIN OR RESPIRATORY DISTRESS NOTED DURING PHYSICAL ASSESSMENT, PT IS CURRENTLY TAKING GOLYTELY FOR A SCHEDULE COLONOSCOPY TOMORROW, WILL CONTINUE TO MONITOR CLOSELY, SAFETY MEASURES WILL BE MAINTAINED AT ALL TIMES, NEEDS WILL BE ANTICIPATED AND ATTENDED TO PROMPTLY.
[2017-06-22 20:00] VITALS: BP 124/84
[2017-06-22] MEDS: TAMSULOSIN 0.4 MG CAP.SR.24H PO SCH (21:36)
[2017-06-23] MEDS: ZOLPIDEM TARTRATE 5 MG TABLET PO PRN (00:11)
[2017-06-23] MEDS: ALBUTEROL FS 2.5 MG/0.5 ML VIAL.NEB NEB PRN ×3 (00:49→20:05)
[2017-06-23] MEDS: ENOXAPARIN SODIUM 40 MG/0.4 ML DISP.SYRIN SQ SCH (01:06)
[2017-06-23] MEDS: HYDROCODONE/APAP 5/325MG 1 EACH TABLET PO PRN ×3 (03:24→20:20)
--- NOTE | 2017-06-23 06:00 | NUR ---
MS RN CLOSING NOTE PT REMAINED STABLE DURING VICE PRESIDENT, NO SIGNIFICANT CHANGE IN CONDITION OCCURRED, WILL ENDORSE TO INCOMING NURSE FOR KARYN.
[2017-06-23 06:40] LABS: BASOPHILS % (AUTO) 0.5 % (0.0-2.0); EOSINOPHILS # (AUTO) 0.1 /CMM (0.0-0.7); EOSINOPHILS % (AUTO) 1.7 % (0.0-6.0); HEMATOCRIT 27 % (39-51); HEMOGLOBIN 9.1 g/dL (13.5-17.5); LYMPHOCYTES # (AUTO) 0.7 /CMM (0.8-4.8); LYMPHOCYTES % (AUTO) 8.9 % (20.0-44.0); MEAN CORPUSCULAR HEMOGLOBIN 27 PG (26.0-33.0); MEAN CORPUSCULAR HGB CONC 33 g/dl (31.0-36.0); MEAN CORPUSCULAR VOLUME 82 fL (80-96); MONOCYTES # (AUTO) 0.5 /CMM (0.1-1.30); MONOCYTES % (AUTO) 6.7 % (2.0-12.0); NEUTROPHILS # (AUTO) 6.4 /CMM (1.8-8.9); NEUTROPHILS % (AUTO) 82.2 % (43.0-81.0); PLATELET COUNT (AUTO) 244 /CMM (150-450); RED BLOOD CELL COUNT(AUTO) 3.35 MIL/uL (4.5-6.0); WHITE BLOOD COUNT (AUTO) 7.8 K/uL (4.3-11.0)
[2017-06-23] MEDS ORDERED: ANESTHESIA TRAY IN PYXIS 1 EA TRAY MC ONE (07:02)
--- NOTE | 2017-06-23 07:15 | NUR ---
MS RN NOTES PATIENT RESTING IN BED , TALKATIVE, NO C/O PAIN, NO ACUTE DISTRESS OR DISCOMFORT NOTED. CONTINENT OF B & BM. IV PERIPHERAL ON RFA, INTACT PATENT. BED IN LOW LOCKED POSITION. SCHEDULED FOR COLONOSCOPY THIS MORNING. WILL FOLLOW UP WITH OR. OBSERVING CLOSELY.
[2017-06-23 07:29] LABS: ALANINE AMINOTRANSFERASE 53 U/L (12-78); ALBUMIN 3.6 g/dL (3.4-5.0); ALKALINE PHOSPHATASE 113 U/L (46-116); ASPARTATE AMINOTRANSFERASE 42 U/L (15-37); BILIRUBIN,TOTAL 0.3 mg/dL (0.2-1.0); CALCIUM, SERUM 8.7 mg/dL (8.5-10.1); CARBON DIOXIDE 22 mmol/L (21-32); CHLORIDE 96 mmol/L (98-107); GLUCOSE 94 mg/dL (74-106); MAGNESIUM 1.8 mg/dL (1.8-2.4); PHOSPHORUS 4.8 mg/dL (2.5-4.9); SODIUM SERUM 128 mmol/L (136-145); TOTAL PROTEIN, SERUM 6.5 g/dL (6.4-8.2); UREA NITROGEN, BLOOD 20 mg/dL (7-18)
[2017-06-23 08:00] VITALS: BP 144/80
[2017-06-23] MEDS: SODIUM CHLORIDE 1000 MG TABLET.SOL PO SCH ×3 (09:00→17:35)
[2017-06-23] MEDS: QUETIAPINE FUMARATE 25 MG TABLET PO SCH ×3 (09:00→17:35)
--- NOTE | 2017-06-23 09:15 | NUR ---
MS RN CAME BACK FROM COLONOSCOPY W/ ORDERS MADE AND CARRIED OUT, WILL HAVE DIET TOLERATED ORDERED.
[2017-06-23] MEDS: IPRATROPIUM NEB FS 0.5 MG/2.5 ML AMPUL.NEB NEB PRN ×2 (11:38→20:05)
[2017-06-23] MEDS: Z GUARD REMEDY 2 OZ OINT TP SCH (11:39)
[2017-06-23] MEDS: ENALAPRIL MALEATE (10 MG) 10 MG TABLET PO SCH ×2 (11:45→17:36)
[2017-06-23] MEDS: MULTIVITAMINS,THERAGRAN 1 UDTAB TABLET PO SCH (11:49)
--- NOTE | 2017-06-23 12:00 | NUR ---
MS RN PATIENT IS TOLERATING SOFT DIET AT THIS TIME, DUE MEDS GIVEN,TOLERATED WELL.
[2017-06-23] MEDS: NITROGLYCERIN 30 GM TUBE TP SCH ×2 (13:55→21:41)
[2017-06-23] MEDS: SOD FERRIC GLUC 125 MG in IV NS 0.9% 100 ML IV SCH (14:31)
[2017-06-23 16:00] VITALS: BP 110/62
--- NOTE | 2017-06-23 19:35 | NUR ---
MS/RN NOTES RECEIVED PT. SITTING UP IN BED. AWAKE, ALERT AND ORIENTED X2-3. WITH EPISODES OF CONFUSION NOTED. PT. IS VERY TALKATIVE. BREATHING EVEN AND UNLABORED ON ROOM AIR. NO SOB, RESPIRATORY DISTRESS OR COMPLAINTS OF PAIN NOTED AT THIS TIME. PT. WITH RIGHT FOREARM 18 GAUGE IV HEPLOCK PRESENT, PATENT AND INTACT. BED IN LOWEST POSITION, CALL LIGHT WITHIN REACH, WILL CONTINUE TO MONITOR.
[2017-06-23 20:26] VITALS: BP 143/84
[2017-06-23] MEDS: TAMSULOSIN 0.4 MG CAP.SR.24H PO SCH (21:42)
[2017-06-24] MEDS: ALBUTEROL FS 2.5 MG/0.5 ML VIAL.NEB NEB PRN ×3 (00:01→12:28)
[2017-06-24] MEDS: HYDROCODONE/APAP 5/325MG 1 EACH TABLET PO PRN ×4 (01:22→16:14)
[2017-06-24] MEDS: ZOLPIDEM TARTRATE 5 MG TABLET PO PRN (01:54)
[2017-06-24] MEDS: ENOXAPARIN SODIUM 40 MG/0.4 ML DISP.SYRIN SQ SCH (03:30)
--- NOTE | 2017-06-24 06:40 | NUR ---
MS/RN NOTES PT. IS LYING IN BED RESTING. BREATHING EVEN AND UNLABORED ON ROOM AIR. NO SOB, RESPIRATORY DISTRESS OR COMPLAINTS OF PAIN NOTED AT THIS TIME. PT. WITH RIGHT FOREARM 18 GAUGE IV HEPLOCK PRESENT, PATENT AND INTACT. ALL PT. NEEDS MET. ALL DUE MEDICATIONS GIVEN. BED IN LOWEST POSITION, CALL LIGHT WITHIN REACH, WILL ENDORSE TO DAYSHIFT NURSE FOR CONTINUITY OF CARE.
--- NOTE | 2017-06-24 07:43 | NUR ---
MS RN OPEN NOTES RECEIVED REPORT FROM POWER LINEMAN NURSE. PATIENT IS SITTING AT THE EDGE OF THE BED. IV SITES INTACT WITH NO SIGNS AND SYMPTOMS OF INFILTRATION OR REDNESS NOTED. RESPIRATIONS EVEN AND UNLABORED. CALL LIGHT WITHIN EASY TO REACH, BED IN LOW POSITION, 2 SIDE RAILS ARE UP. TO ENSURE SAFETY. WILL CONTINUE TO ASSESS AND MONITOR PATIENT
[2017-06-24 08:00] VITALS: BP 144/65
--- NOTE | 2017-06-24 08:25 | NUR ---
DR VALDIVIA AT BEDSIDE
[2017-06-24] MEDS: ENALAPRIL MALEATE (10 MG) 10 MG TABLET PO SCH (08:50)
[2017-06-24] MEDS: MULTIVITAMINS,THERAGRAN 1 UDTAB TABLET PO SCH (08:50)
[2017-06-24] MEDS: QUETIAPINE FUMARATE 25 MG TABLET PO SCH ×2 (08:50→12:02)
[2017-06-24] MEDS: SODIUM CHLORIDE 1000 MG TABLET.SOL PO SCH ×2 (08:50→12:02)
[2017-06-24] MEDS: Z GUARD REMEDY 2 OZ OINT TP SCH (09:00)
--- NOTE | 2017-06-24 09:45 | NUR ---
NO Elio MOTA AT BEDSIDE / PATIENT CASSETTE. PHARMACY NOTIFIED
[2017-06-24] MEDS: NITROGLYCERIN 30 GM TUBE TP SCH (09:48)
[2017-06-24 10:00] LABS: ALANINE AMINOTRANSFERASE 45 U/L (12-78); ALBUMIN 3.5 g/dL (3.4-5.0); ALKALINE PHOSPHATASE 113 U/L (46-116); ASPARTATE AMINOTRANSFERASE 28 U/L (15-37); BILIRUBIN,TOTAL 0.3 mg/dL (0.2-1.0); CALCIUM, SERUM 8.9 mg/dL (8.5-10.1); CARBON DIOXIDE 25 mmol/L (21-32); CHLORIDE 101 mmol/L (98-107); GLUCOSE 159 mg/dL (74-106); POTASSIUM 4.1 mmol/L (3.5-5.1); SODIUM SERUM 137 mmol/L (136-145); TOTAL PROTEIN, SERUM 6.8 g/dL (6.4-8.2); UREA NITROGEN, BLOOD 22 mg/dL (7-18)
[2017-06-24] MEDS: hydrOXYzine 10 MG TABLET PO PRN (11:08)
[2017-06-24] MEDS: IPRATROPIUM NEB FS 0.5 MG/2.5 ML AMPUL.NEB NEB PRN (12:28)
[2017-06-24] MEDS: SOD FERRIC GLUC 125 MG in IV NS 0.9% 100 ML IV SCH (13:31)
--- NOTE | 2017-06-24 15:59 | NUR ---
GAVE REPORT TO SANTHOSH FROM [facility]
[2017-06-24 16:00] VITALS: BP 131/76
--- NOTE | 2017-06-24 16:28 | NUR ---
MANAGER POKER NOTES PATIENT DISCHARGE ORDER RECEIVED AND CARRIED OUT. PATIENT IS LEAVING IN A STABLE CONDITION. NO SIGNS AND SYMPTOMS OF DISTRESS. PATIENT IS ALERT AND ORIENTED X3. ALL DISCHARGE INFORMATION EXPLAINED TO PATIENT AND [facility] NURSESANTHOSH. PATIENT VERBALIZED UNDERSTANDING. ALL PERSONAL BELONGING WITH PATIENT AT TIME OF DISCHARGE. PATIENT SIGNED ALL DISCHARGE PAPERWORK; PLACED IN THE CHART. PICTURES WERE TAKEN AND PLACED IN THE CHART. IV SITE DISCONTINUED. ID BAND REMOVED. PATIENT TRANSPORTED TO [facility] VIA AMBULANCE AND [facility].
== END 2017-06-24 16:30 | DRG 643 ==
LOC: ER 23:45 → TELE 06-20 02:50 → MED 06-20 11:25
PROVIDERS: ADMIT Nurse Practitioner Acute Care; ATTEND Internal Medicine
PROC: 0DB68ZX Excision of Stomach, Via Natural or Artificial Opening Endoscopic, Diagnostic (ICD-10-PCS; 2017-06-22)
PROC: 0DB58ZX Excision of Esophagus, Via Natural or Artificial Opening Endoscopic, Diagnostic (ICD-10-PCS; principal; 2017-06-22 07:45)
PROC: 0DBP8ZX Excision of Rectum, Via Natural or Artificial Opening Endoscopic, Diagnostic (ICD-10-PCS; 2017-06-23)
DX: E22.2 Syndrome of inappropriate secretion of antidiuretic hormone (principal); N17.0 Acute kidney failure with tubular necrosis; G30.9 Alzheimer's disease, unspecified; I10 Essential (primary) hypertension; F17.200 Nicotine dependence, unspecified, uncomplicated; D50.9 Iron deficiency anemia, unspecified; F01.50 Vascular dementia, unspecified severity, without behavioral disturbance, psychotic disturbance, mood disturbance, and anxiety; J44.9 Chronic obstructive pulmonary disease, unspecified; F25.0 Schizoaffective disorder, bipolar type; W19.XXXA Unspecified fall, initial encounter; F02.80 Dementia in other diseases classified elsewhere, unspecified severity, without behavioral disturbance, psychotic disturbance, mood disturbance, and anxiety; D64.9 Anemia, unspecified; S01.81XA Laceration without foreign body of other part of head, initial encounter; R55 Syncope and collapse; E78.5 Hyperlipidemia, unspecified; K21.9 Gastro-esophageal reflux disease without esophagitis; K29.70 Gastritis, unspecified, without bleeding; K44.9 Diaphragmatic hernia without obstruction or gangrene; K62.1 Rectal polyp; N40.0 Benign prostatic hyperplasia without lower urinary tract symptoms; Z79.899 Other long term (current) drug therapy; T42.1X5A Adverse effect of iminostilbenes, initial encounter; Y92.129 Unspecified place in nursing home as the place of occurrence of the external cause; Z86.73 Personal history of transient ischemic attack (TIA), and cerebral infarction without residual deficits; R29.6 Repeated falls; F43.10 Post-traumatic stress disorder, unspecified; K22.70 Barrett's esophagus without dysplasia; K64.8 Other hemorrhoids; Z73.6 Limitation of activities due to disability
CPT/HCPCS: 36415; 70450-TC; 71010-TC; 72125-TC; 72170-TC; 80048-TC; 80053-TC; 80061-TC; 80076-TC; 81000-TC; 82728-TC; 83540-TC; 83735-TC; 83935-TC; 84100-TC; 84300-TC; 84439-TC; 84443-TC; 84484-TC; 84550-TC; 85025-TC; 85730-TC; 87070-TC; 87081-TC; 88305-TC; 88313-TC; 88342; 93307-TC; 94799-TC; A4606; A6402; J1650; J2704; J2916; J3475; J3490; J7030; L0172; Q0177; Z7610

== ENCOUNTER 2017-06-28 21:40 | Inpatient (IN) | payer MEDICARE, MEDICAID ==
[~2017-06-28] VITALS: Ht 180.3 cm; Wt 56.2 kg
[~2017-06-28 21:40] MED LIST changes: -OXCA150T5 PO
[2017-06-28 22:16] LABS: BASOPHILS % (AUTO) 0.4 % (0.0-2.0); EOSINOPHILS # (AUTO) 0.4 /CMM (0.0-0.7); EOSINOPHILS % (AUTO) 5.1 % (0.0-6.0); HEMATOCRIT 27 % (39-51); HEMOGLOBIN 8.9 g/dL (13.5-17.5); LYMPHOCYTES # (AUTO) 0.8 /CMM (0.8-4.8); LYMPHOCYTES % (AUTO) 9.9 % (20.0-44.0); MEAN CORPUSCULAR HEMOGLOBIN 27 PG (26.0-33.0); MEAN CORPUSCULAR HGB CONC 33 g/dl (31.0-36.0); MEAN CORPUSCULAR VOLUME 82 fL (80-96); MONOCYTES # (AUTO) 0.6 /CMM (0.1-1.30); MONOCYTES % (AUTO) 7.8 % (2.0-12.0); NEUTROPHILS # (AUTO) 6.1 /CMM (1.8-8.9); NEUTROPHILS % (AUTO) 76.8 % (43.0-81.0); PLATELET COUNT (AUTO) 340 /CMM (150-450); RDW COEFFICIENT OF VARIATION 13.4 (11.5-15.0); RED BLOOD CELL COUNT(AUTO) 3.34 MIL/uL (4.5-6.0); WHITE BLOOD COUNT (AUTO) 7.9 K/uL (4.3-11.0)
[2017-06-28 22:17] LABS: ACETAMINOPHEN 2 ug/ml (10-30); ALANINE AMINOTRANSFERASE 73 U/L (12-78); ALBUMIN 3.1 g/dL (3.4-5.0); ALKALINE PHOSPHATASE 231 U/L (46-116); ASPARTATE AMINOTRANSFERASE 54 U/L (15-37); BILIRUBIN,DIRECT 0.1 mg/dL (0.0-0.2); BILIRUBIN,TOTAL 0.3 mg/dL (0.2-1.0); CALCIUM, SERUM 9.6 mg/dL (8.5-10.1); CARBON DIOXIDE 23 mmol/L (21-32); CHLORIDE 100 mmol/L (98-107); CREATININE 1.1 mg/dL (0.6-1.3); GLUCOSE 124 mg/dL (74-106); POTASSIUM 4.5 mmol/L (3.5-5.1); SODIUM SERUM 134 mmol/L (136-145); TOTAL PROTEIN, SERUM 6.8 g/dL (6.4-8.2); UREA NITROGEN, BLOOD 30 mg/dL (7-18)
[2017-06-28 22:19] LABS: ALCOHOL, BLOOD < 3 mg/dL (0-0); SALICYLATE 0.5 mg/dL (2.8-20.0)
[2017-06-28 22:48] LABS: APPEARANCE,URINE CLEAR (CLEAR); BILIRUBIN,URINE NEGATIVE (NEGATIVE); BLOOD, URINE NEGATIVE Ery/uL (NEGATIVE); COLOR,URINE YELLOW (YELLOW); KETONES,URINE NEGATIVE (NEGATIVE); LEUKOCYTE ESTERASE ,URINE NEGATIVE (NEGATIVE); NITRITE, URINE NEGATIVE (NEGATIVE); PH,URINE 6.5 (5.0-8.0); PROTEIN,URINE NEGATIVE (NEGATIVE); UGLUCOSE NEGATIVE (NEGATIVE); UROBILINOGEN,URINE 0.2 EU/dL (0.2)
[2017-06-29] MEDS ORDERED: ENAL20TA70 PO (01:18)
[2017-06-29 05:12] VITALS: BP 148/72
[2017-06-29 07:22] LABS: CHOLESTEROL 121 mg/dL (<200); HDL CHOLESTEROL 57 mg/dL (40-60); LDL 55 mg/dL (0-99); TRIGLYCERIDES 42 mg/dL (30-150)
[2017-06-29 07:23] LABS: IRON, SERUM 17 ug/dl (50-175); TOTAL IRON BINDING CAPACITY 260 ug/dl (250-450)
[2017-06-29 08:00] VITALS: BP 130/74
[2017-06-29 16:00] VITALS: BP 120/70
[2017-06-29 20:00] VITALS: BP 132/74
[2017-06-30 06:32] LABS: BASOPHILS % (AUTO) 0.3 % (0.0-2.0); EOSINOPHILS # (AUTO) 0.3 /CMM (0.0-0.7); EOSINOPHILS % (AUTO) 4.8 % (0.0-6.0); HEMATOCRIT 30 % (39-51); HEMOGLOBIN 9.8 g/dL (13.5-17.5); LYMPHOCYTES # (AUTO) 0.7 /CMM (0.8-4.8); LYMPHOCYTES % (AUTO) 10.5 % (20.0-44.0); MEAN CORPUSCULAR HEMOGLOBIN 27 PG (26.0-33.0); MEAN CORPUSCULAR HGB CONC 33 g/dl (31.0-36.0); MEAN CORPUSCULAR VOLUME 82 fL (80-96); MONOCYTES # (AUTO) 0.5 /CMM (0.1-1.30); MONOCYTES % (AUTO) 7.7 % (2.0-12.0); NEUTROPHILS # (AUTO) 4.8 /CMM (1.8-8.9); NEUTROPHILS % (AUTO) 76.7 % (43.0-81.0); PLATELET COUNT (AUTO) 369 /CMM (150-450); RDW COEFFICIENT OF VARIATION 13.4 (11.5-15.0); RED BLOOD CELL COUNT(AUTO) 3.62 MIL/uL (4.5-6.0); WHITE BLOOD COUNT (AUTO) 6.2 K/uL (4.3-11.0)
[2017-06-30 06:41] LABS: CALCIUM, SERUM 8.7 mg/dL (8.5-10.1); CARBON DIOXIDE 24 mmol/L (21-32); CHLORIDE 95 mmol/L (98-107); CREATININE 0.8 mg/dL (0.6-1.3); GLUCOSE 95 mg/dL (74-106); MAGNESIUM 1.5 mg/dL (1.8-2.4); PHOSPHORUS 3.7 mg/dL (2.5-4.9); POTASSIUM 3.7 mmol/L (3.5-5.1); SODIUM SERUM 128 mmol/L (136-145); UREA NITROGEN, BLOOD 19 mg/dL (7-18)
[2017-06-30 08:00] VITALS: BP 101/61
[2017-06-30 16:00] VITALS: BP 145/78
[2017-06-30 20:00] VITALS: BP 144/64
[2017-07-01 07:45] LABS: BASOPHILS % (AUTO) 0.7 % (0.0-2.0); CALCIUM, SERUM 9.1 mg/dL (8.5-10.1); CARBON DIOXIDE 23 mmol/L (21-32); CHLORIDE 96 mmol/L (98-107); CREATININE 0.8 mg/dL (0.6-1.3); EOSINOPHILS # (AUTO) 0.3 /CMM (0.0-0.7); EOSINOPHILS % (AUTO) 5.3 % (0.0-6.0); GLUCOSE 97 mg/dL (74-106); HEMATOCRIT 31 % (39-51); HEMOGLOBIN 10.1 g/dL (13.5-17.5); LYMPHOCYTES # (AUTO) 0.8 /CMM (0.8-4.8); LYMPHOCYTES % (AUTO) 15.9 % (20.0-44.0); MAGNESIUM 1.7 mg/dL (1.8-2.4); MEAN CORPUSCULAR HEMOGLOBIN 26 PG (26.0-33.0); MEAN CORPUSCULAR HGB CONC 33 g/dl (31.0-36.0); MEAN CORPUSCULAR VOLUME 81 fL (80-96); MONOCYTES # (AUTO) 0.4 /CMM (0.1-1.30); MONOCYTES % (AUTO) 8.7 % (2.0-12.0); NEUTROPHILS # (AUTO) 3.4 /CMM (1.8-8.9); NEUTROPHILS % (AUTO) 69.4 % (43.0-81.0); PHOSPHORUS 4.1 mg/dL (2.5-4.9); PLATELET COUNT (AUTO) 434 /CMM (150-450); POTASSIUM 4.4 mmol/L (3.5-5.1); RDW COEFFICIENT OF VARIATION 13.3 (11.5-15.0); RED BLOOD CELL COUNT(AUTO) 3.86 MIL/uL (4.5-6.0); SODIUM SERUM 129 mmol/L (136-145); UREA NITROGEN, BLOOD 21 mg/dL (7-18); WHITE BLOOD COUNT (AUTO) 4.9 K/uL (4.3-11.0)
[2017-07-01 08:00] VITALS: BP 114/53
[2017-07-01 15:47] VITALS: BP 133/63
[2017-07-01 20:00] VITALS: BP 108/56
[2017-07-02 08:10] VITALS: BP 101/59
[2017-07-02 16:00] VITALS: BP 136/51
[2017-07-02 19:35] VITALS: BP 119/74
[2017-07-03 08:00] VITALS: BP 127/77
[2017-07-03 16:00] VITALS: BP 138/62
[2017-07-03 20:05] VITALS: BP 148/70
[2017-07-04 08:00] VITALS: BP 145/87
[2017-07-04 16:06] VITALS: BP 142/59
[2017-07-04 20:10] VITALS: BP 140/65
[2017-07-05 06:41] LABS: CALCIUM, SERUM 9.1 mg/dL (8.5-10.1); CARBON DIOXIDE 26 mmol/L (21-32); CHLORIDE 97 mmol/L (98-107); GLUCOSE 94 mg/dL (74-106); POTASSIUM 4.5 mmol/L (3.5-5.1); SODIUM SERUM 130 mmol/L (136-145); UREA NITROGEN, BLOOD 29 mg/dL (7-18)
[2017-07-05 08:00] VITALS: BP 133/59
[2017-07-05 16:06] VITALS: BP 154/76
[2017-07-05 20:00] VITALS: BP 113/74
[2017-07-06 08:00] VITALS: BP 122/79
[2017-07-06 16:00] VITALS: BP 160/75
[2017-07-06 20:00] VITALS: BP 154/92
[2017-07-07 08:18] VITALS: BP 115/60
[2017-07-07 16:00] VITALS: BP 125/60
[2017-07-07 20:00] VITALS: BP 144/81
[2017-07-08 08:00] VITALS: BP 123/69
[2017-07-08 15:57] VITALS: BP 157/70
[2017-07-08 20:00] VITALS: BP 138/63
[2017-07-09 08:00] VITALS: BP 128/65
[2017-07-09 16:00] VITALS: BP 136/70
[2017-07-09 20:10] VITALS: BP 147/88
[2017-07-10 07:46] VITALS: BP 139/61
== END 2017-07-10 14:30 | DRG 885 ==
LOC: ER 21:42 → GPS 23:42
PROVIDERS: ADMIT Psychiatry & Neurology Psychosomatic Medicine; ATTEND Internal Medicine
DX: F25.0 Schizoaffective disorder, bipolar type (principal); F01.50 Vascular dementia, unspecified severity, without behavioral disturbance, psychotic disturbance, mood disturbance, and anxiety; E44.1 Mild protein-calorie malnutrition; E88.09 Other disorders of plasma-protein metabolism, not elsewhere classified; E87.1 Hypo-osmolality and hyponatremia; D50.9 Iron deficiency anemia, unspecified; F17.200 Nicotine dependence, unspecified, uncomplicated; I10 Essential (primary) hypertension; Z68.1 Body mass index [BMI] 19.9 or less, adult; W19.XXXA Unspecified fall, initial encounter; J44.9 Chronic obstructive pulmonary disease, unspecified; E78.5 Hyperlipidemia, unspecified; Z86.73 Personal history of transient ischemic attack (TIA), and cerebral infarction without residual deficits; F43.10 Post-traumatic stress disorder, unspecified; S05.11XA Contusion of eyeball and orbital tissues, right eye, initial encounter; X58.XXXA Exposure to other specified factors, initial encounter; Y93.9 Activity, unspecified; Y92.129 Unspecified place in nursing home as the place of occurrence of the external cause; R21 Rash and other nonspecific skin eruption; S50.12XA Contusion of left forearm, initial encounter; F29 Unspecified psychosis not due to a substance or known physiological condition
CPT/HCPCS: 36415; 71020-TC; 80048-TC; 80061-TC; 80076-TC; 80305; 81000-TC; 83540-TC; 83735-TC; 84100-TC; 85025-TC; 87081-TC; A4606; G0480; Z7610

== ENCOUNTER 2017-08-06 13:46 | Inpatient (IN) | payer MEDICARE, MEDICAID ==
[~2017-08-06] VITALS: Ht 180.3 cm; Wt 64.4 kg
[~2017-08-06 13:46] MED LIST changes: +ENAL20TA70 PO
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
[2017-08-06 14:16] LABS: BASOPHILS % (AUTO) 0.4 % (0.0-2.0); EOSINOPHILS # (AUTO) 0.4 /CMM (0.0-0.7); EOSINOPHILS % (AUTO) 4.5 % (0.0-6.0); HEMATOCRIT 30 % (39-51); HEMOGLOBIN 9.9 g/dL (13.5-17.5); LYMPHOCYTES # (AUTO) 0.9 /CMM (0.8-4.8); LYMPHOCYTES % (AUTO) 10.4 % (20.0-44.0); MEAN CORPUSCULAR HEMOGLOBIN 26 PG (26.0-33.0); MEAN CORPUSCULAR HGB CONC 33 g/dl (31.0-36.0); MEAN CORPUSCULAR VOLUME 80 fL (80-96); MONOCYTES # (AUTO) 0.4 /CMM (0.1-1.30); MONOCYTES % (AUTO) 5.1 % (2.0-12.0); NEUTROPHILS # (AUTO) 6.8 /CMM (1.8-8.9); NEUTROPHILS % (AUTO) 79.6 % (43.0-81.0); PLATELET COUNT (AUTO) 598 /CMM (150-450); RDW COEFFICIENT OF VARIATION 14.3 (11.5-15.0); RED BLOOD CELL COUNT(AUTO) 3.73 MIL/uL (4.5-6.0); WHITE BLOOD COUNT (AUTO) 8.5 K/uL (4.3-11.0)
[2017-08-06 14:25] LABS: CARBON DIOXIDE 23 mmol/L (21-32); CHLORIDE 106 mmol/L (98-107); CREATININE 1.4 mg/dL (0.6-1.3); GLUCOSE 111 mg/dL (74-106); POTASSIUM 4.2 mmol/L (3.5-5.1); SODIUM SERUM 137 mmol/L (136-145); UREA NITROGEN, BLOOD 36 mg/dL (7-18)
[2017-08-06 14:32] LABS: ALANINE AMINOTRANSFERASE 81 U/L (12-78); ALBUMIN 2.6 g/dL (3.4-5.0); ALCOHOL, BLOOD < 3 mg/dL (0-0); ALKALINE PHOSPHATASE 436 U/L (46-116); ASPARTATE AMINOTRANSFERASE 44 U/L (15-37); BILIRUBIN,DIRECT 0.1 mg/dL (0.0-0.2); BILIRUBIN,TOTAL 0.2 mg/dL (0.2-1.0); SALICYLATE 1.4 mg/dL (2.8-20.0)
[2017-08-06 14:33] LABS: ACETAMINOPHEN 0 ug/ml (10-30)
--- NOTE | 2017-08-06 14:55 | NUR ---
KELVIN COTTER RN FOR PSYCH EVAL, ETA=1HR
[2017-08-06] MEDS ORDERED: NICO1PAT28 TD (15:25)
[2017-08-06] MEDS ORDERED: SENN8.6T6 PO (15:25)
[2017-08-06] MEDS ORDERED: ACET-868 PO (15:25)
[2017-08-06] MEDS ORDERED: MELA3TAB PO (15:25)
[2017-08-06] MEDS ORDERED: QUET300T2 PO (15:25)
[2017-08-06] MEDS ORDERED: BISA10SU8 RC (15:25)
[2017-08-06] MEDS ORDERED: MAGN400O6 PO (15:25)
[2017-08-06] MEDS ORDERED: GABA-532 PO (15:25)
[2017-08-06 15:26] LABS: APPEARANCE,URINE Slightly Cloudy (CLEAR); BILIRUBIN,URINE Negative (NEGATIVE); BLOOD, URINE Negative Ery/uL (NEGATIVE); COLOR,URINE Yellow (YELLOW); KETONES,URINE Negative (NEGATIVE); LEUKOCYTE ESTERASE ,URINE Negative (NEGATIVE); NITRITE, URINE Negative (NEGATIVE); PH,URINE 5.5 (5.0-8.0); PROTEIN,URINE Negative (NEGATIVE); UGLUCOSE Negative (NEGATIVE); UROBILINOGEN,URINE 0.2 EU/dL (0.2)
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
--- NOTE | 2017-08-06 15:55 | NUR ---
CYNDEE RN AT BEDSIDE FOR PSYCH EVAL.
--- NOTE | 2017-08-06 16:27 | NUR ---
REPORT GIVEN TO ELIAN. PT AWAITING TRANSFER TO FLOOR.
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
[2017-08-06 17:23] VITALS: BP 154/71
--- NOTE | 2017-08-06 17:29 | NUR ---
GPS/RN ADMITTING ORDERS FROM DR STERLING RECEVIED AND CARRIED OUT. DR BALLARD MADE AWARE OF ADMISSION VIA [employer] [facility] EXCHANGE WELL.
[2017-08-06] MEDS ORDERED: MAG HYDROX/AL HYDROX/SIMETH 30 ML UDC PO PRN ×2 (17:30→21:00)
[2017-08-06] MEDS ORDERED: MAGNESIUM HYDROXIDE 30 ML UDC PO PRN ×2 (17:30→21:00)
[2017-08-06 19:59] VITALS: BP 161/84
[2017-08-06] MEDS ORDERED: HYDR-3326 PO (20:01)
[2017-08-06] MEDS ORDERED: BISACODYL SUPP (10 MG) 10 MG/SUPP.RECT SUPP.RECT RC PRN (21:00)
[2017-08-06] MEDS ORDERED: ACETAMINOPHEN 325 MG TABLET PO PRN (21:00)
[2017-08-06] MEDS ORDERED: EZETIMIBE 10 MG TABLET ONE (21:31)
[2017-08-06] MEDS ORDERED: TAMSULOSIN 0.4 MG CAP.SR.24H ONE (21:32)
[2017-08-06] MEDS ORDERED: HYDROCODONE/APAP 5/325MG 1 EACH TABLET ONE (21:32)
[2017-08-06] MEDS: TAMSULOSIN 0.4 MG CAP.SR.24H PO SCH (21:36)
[2017-08-06] MEDS: EZETIMIBE 10 MG TABLET PO SCH (21:36)
[2017-08-06] MEDS: HYDROCODONE/APAP 5/325MG 1 EACH TABLET PO PRN (21:37)
[2017-08-06] MEDS: SENNOSIDES 8.6 MG TABLET PO SCH (21:39)
--- NOTE | 2017-08-06 21:39 | NUR ---
RN GPS NOTES PT. REQUEST HIS MEDS , ZETIA 10MG, FLOMAX 0.4MG,AND REFUSED SENOKOT 8.6 MG ,SCHEDULE MEDS GIVEN FOR 2199 Addendum: 08/06/17 at 2145 by MARIFER AGUERO RN PT. REFUSED SENOKOT 8.6 MG FOR 2199.
--- NOTE | 2017-08-06 21:45 | NUR ---
RN GPS NOTES PT. C/O BACK PAIN 05/25 AND NARCO 5MG/325MG PER REQUEST GIVEN
[2017-08-06] MEDS: ZOLPIDEM TARTRATE 5 MG TABLET PO PRN (22:27)
[2017-08-06 23:00] VITALS: BP 138/78
[2017-08-07 08:24] VITALS: BP 145/99
[2017-08-07] MEDS: MULTIVIT, IRON, MIN NO. 8, FA 1 TAB PO SCH (08:34)
[2017-08-07] MEDS: HYDROCODONE/APAP 5/325MG 1 EACH TABLET PO PRN ×2 (08:34→15:54)
[2017-08-07] MEDS: Z GUARD REMEDY 2 OZ OINT TP SCH (08:35)
[2017-08-07] MEDS ORDERED: NICOTINE PATCH (14MG) 14 MG PATCH.TD24 TD SCH (09:00)
--- NOTE | 2017-08-07 10:00 | NUR ---
[id number]: NOTIFIED DR. BALLARD ABOUT LAB RESULTS: RBC= 3.73, HGB= 9.9, HCT= 40, PLT COUNT= 598, LYMPH %= 10.4, BUN= 36, CREATININE=1.4, AST= 44, ALT= 81, ALKALINE PHOSPHATASE= 936, ALBUMIN= 2.6. NO NEW ORDERS GIVEN AT THIS TIME.
[2017-08-07] MEDS: NICOTINE PATCH (21MG) 21 MG PATCH.TD24 TD SCH (10:14)
--- NOTE | 2017-08-07 10:47 | NUR ---
WOUND CARE CONSULT PATIENT SEEN AND SKIN ASSESSED. PATIENT NOTED TO HAVE BLANCHING REDNESS ON THE SACRUM AND BUTTOCKS. ElioGUCORINE ORDERED. WOUND TREATMENT ORDERED AND DISCUSSED WITH NURSING STAFF AT THE BEDSIDE. PATIENT KOFFI Solomon. PT ON STRIKER GEL MATTRESS; INDEPENDENT WITH MOVEMENT AND AMBULATION. MD IN AGREEMENT WITH TREATMENT PLAN. WILL CONTINUE TO FOLLOW PATIENT NEEDED. Addendum: 08/07/17 at 1048 by CHELSEA PARK RN Amended: Links added.
--- NOTE | 2017-08-07 11:00 | NUR ---
[id number]: CLARIFIED WITH DR. BALLARD REGARDING CT OF CHEST WITHOUT CONTRAST DUE TO CREATININE LEVEL BEING LOW.
[2017-08-07 15:42] VITALS: BP 134/90
--- NOTE | 2017-08-07 15:54 | NUR ---
[id number]: GAVE NORCO 5/325 MG PO DUE TO GENERALIZED UPON PT REQUEST AND WILL CONTINUE TO MONITOR FOR EFFECTIVENESS OF MEDICATION
[2017-08-07] MEDS: QUETIAPINE FUMARATE 25 MG TABLET PO SCH (17:49)
[2017-08-07] MEDS: GABAPENTIN 100 MG CAPSULE PO SCH (17:49)
[2017-08-07 19:47] VITALS: BP 159/85
[2017-08-07] MEDS: SENNOSIDES 8.6 MG TABLET PO SCH (21:36)
[2017-08-07] MEDS: TAMSULOSIN 0.4 MG CAP.SR.24H PO SCH (21:36)
[2017-08-07] MEDS: QUETIAPINE FUMARATE 100 MG TABLET PO SCH (21:37)
[2017-08-07] MEDS: EZETIMIBE 10 MG TABLET PO SCH (21:37)
[2017-08-07] MEDS: ZOLPIDEM TARTRATE 5 MG TABLET PO PRN (22:12)
[2017-08-08] MEDS: HYDROCODONE/APAP 5/325MG 1 EACH TABLET PO PRN ×3 (04:58→18:09)
--- NOTE | 2017-08-08 04:58 | NUR ---
GPS RN NOTE, PATIENT HAS A COMPLAINT OF GENERALIZED PAIN AT 5 OUT 10 ON THE PAIN SCALE AND REQUESTING NORCO AT THIS TIME. PATIENT VITAL SIGNS ARE STABLE GAVE NORCO 5 - 325 1 TAB PO Q6HR PRN ORDERED. WILL REASSESS PAIN AND I WILL CONTINUE TO MONITOR THIS PATIENT.
[2017-08-08] MEDS ORDERED: ALBUTEROL FS 2.5 MG/0.5 ML VIAL.NEB ONE (05:10)
[2017-08-08] MEDS: IPRATROPIUM NEB FS 0.5 MG/2.5 ML AMPUL.NEB NEB PRN (05:17)
[2017-08-08] MEDS: ALBUTEROL FS 2.5 MG/0.5 ML VIAL.NEB NEB PRN (05:17)
[2017-08-08 08:00] VITALS: BP 111/54
[2017-08-08] MEDS: QUETIAPINE FUMARATE 25 MG TABLET PO SCH ×3 (09:08→17:19)
[2017-08-08] MEDS: MULTIVIT, IRON, MIN NO. 8, FA 1 TAB PO SCH (09:08)
[2017-08-08] MEDS: GABAPENTIN 100 MG CAPSULE PO SCH ×3 (09:08→17:19)
[2017-08-08] MEDS: Z GUARD REMEDY 2 OZ OINT TP SCH (09:10)
[2017-08-08] MEDS: NICOTINE PATCH (21MG) 21 MG PATCH.TD24 TD SCH (09:58)
--- NOTE | 2017-08-08 11:33 | NUR ---
[id number]: GAVE NORCO 5/325 MG PO DUE TO GENERALIZED PAIN 05/25 UPON PT REQUEST AND WILL CONTINUE TO MONITOR FOR EFFECTIVENESS OF MEDICATION
--- NOTE | 2017-08-08 12:57 | NUR ---
Initial Discharge Plan Patient is from a SNF [facility], [address] [place] [id number]; [phone] and wishes to return after discharge. ADITYA spoke with Von from [facility] who stated that patient can return after discharge. SW called patient's conservatorMariana, and left a voicemail with contact information.
--- NOTE | 2017-08-08 13:18 | NUR ---
[id number]: DR. CUI NOTIFIED DR. GARCIA ONCOLOGIST TO FOLLOW WITH PT'S CONDITION
--- NOTE | 2017-08-08 13:19 | NUR ---
[id number]: NOTIFIED DR. CUI THAT RADIOLOGIST CALLED THE UNIT STATING PT HAS A LARGE MASS ON LUNGS. NO NEW ORDERS GIVEN AT THIS TIME
[2017-08-08 16:11] VITALS: BP 52/97
[2017-08-08] MEDS: ACETAMINOPHEN 325 MG TABLET PO PRN (16:18)
--- NOTE | 2017-08-08 18:19 | NUR ---
[id number]: GAVE NORCO 5/325 MG PO DUE TO GENERALIZED PAIN 04/24 UPON PT REQUEST AND WILL CONTINUE TO MONITOR FOR EFFECTIVENESS OF MEDICATION
[2017-08-08 20:41] VITALS: BP 128/56
[2017-08-08] MEDS: EZETIMIBE 10 MG TABLET PO SCH (21:27)
[2017-08-08] MEDS: TAMSULOSIN 0.4 MG CAP.SR.24H PO SCH (21:27)
[2017-08-08] MEDS: SENNOSIDES 8.6 MG TABLET PO SCH (21:27)
[2017-08-08] MEDS: QUETIAPINE FUMARATE 100 MG TABLET PO SCH (21:34)
[2017-08-08 23:00] VITALS: BP 128/65
[2017-08-09] MEDS: HYDROCODONE/APAP 5/325MG 1 EACH TABLET PO PRN ×2 (06:02→16:39)
[2017-08-09] MEDS: ALBUTEROL FS 2.5 MG/0.5 ML VIAL.NEB NEB PRN ×3 (06:13→16:51)
[2017-08-09] MEDS: IPRATROPIUM NEB FS 0.5 MG/2.5 ML AMPUL.NEB NEB PRN ×3 (06:13→16:51)
--- NOTE | 2017-08-09 06:26 | NUR ---
PT IS COMBATIVE, THREW THE TX ON THE FLOOR. TX IS WASTED, MICHELA CAICEDO NOTIFIED
[2017-08-09 08:40] VITALS: BP 116/56
[2017-08-09] MEDS: Z GUARD REMEDY 2 OZ OINT TP SCH (09:13)
[2017-08-09] MEDS: QUETIAPINE FUMARATE 25 MG TABLET PO SCH ×3 (09:13→17:04)
[2017-08-09] MEDS: MULTIVIT, IRON, MIN NO. 8, FA 1 TAB PO SCH (09:13)
[2017-08-09] MEDS: NICOTINE PATCH (21MG) 21 MG PATCH.TD24 TD SCH (09:13)
[2017-08-09] MEDS: GABAPENTIN 100 MG CAPSULE PO SCH ×3 (09:13→17:04)
[2017-08-09] MEDS: ACETAMINOPHEN 325 MG TABLET PO PRN (09:14)
--- NOTE | 2017-08-09 11:16 | NUR ---
COMPUTED TOMOGRAPHY GUIDED NEEDLE BIOPSY TO BE DONE TOMORROW (08/10/17) AT 1100. AWAITING CONSENT FOR PROCEDURE AND CONSENT FOR MODERATE SEDATION. PT, PTT, INR, AND PLATELETS TO BE DRAWN FIRST THING IN THE AM.
--- NOTE | 2017-08-09 11:46 | NUR ---
SW called pt's conservator Mariana, and informed her of a biopsy that has been scheduled for patient. Mariana stated that she cannot give consent for such an invasive procedure without the risk/benefits, physician's report, anesthesiologist report. Mariana asked ADITYA to fax over the documents to fax number [phone]. ADITYA consulted with charge nurse Melvi, as well as pt's RN, Alonso. They cancelled the scheduled biopsy.
--- NOTE | 2017-08-09 12:37 | NUR ---
RN-CO: PER [employer] , SHE WANTS TO KNOW ALL THE INFORMATION ABOUT THE BIOPSY. SHE WANTS TO TALK TO DR GARCIA(OIL PAINT SHADER) BEFORE DECIDING IF SHE WILL APPROVE THE BIOPSY.
--- NOTE | 2017-08-09 12:47 | NUR ---
RN-CO: NOTIFIED DR Kevon GARCIA THAT DANIE ([employer]) , WANTS TO TALK TO HER FIRST BEFORE DECIDING FOR THE LUNG BIOPSY. DR SAUCEDO MADE AWARE AND RN SUPPERVISOR (SMITH).
[2017-08-09] MEDS: HALOPERIDOL 1 MG TABLET PO SCH ×2 (13:22→17:04)
--- NOTE | 2017-08-09 14:08 | NUR ---
ADITYA faxed over the risk/benefits of procedure to pt's conservator, Mariana, to fax number [phone]. ADITYA also informed her that the medical doctor will be calling her in regards to physician's report that she requested.
--- NOTE | 2017-08-09 14:42 | NUR ---
RN-CO: EDGAR FROM RADIOLOGY NOTIFIED THAT PT'S RESPONSIBLE CONSTITUTION PARTY NEEDS TO TALK TO THE DR FIRST BEFORE HE WILL DECIDE IF THE PROCEDURE WILL PUSH THROUGH.
[2017-08-09 16:00] VITALS: BP 151/73
[2017-08-09 20:21] VITALS: BP 136/59
[2017-08-09] MEDS: QUETIAPINE FUMARATE 100 MG TABLET PO SCH (21:16)
[2017-08-09] MEDS: TAMSULOSIN 0.4 MG CAP.SR.24H PO SCH (21:16)
[2017-08-09] MEDS: SENNOSIDES 8.6 MG TABLET PO SCH (21:17)
[2017-08-09] MEDS: EZETIMIBE 10 MG TABLET PO SCH (21:17)
--- NOTE | 2017-08-10 | NUR ---
RN GPS NOTES PT. IS NPO AFTER MIDNIGHT PER MD ORDERS FOR PROCEDURES ,
[2017-08-10] MEDS: ALBUTEROL FS 2.5 MG/0.5 ML VIAL.NEB NEB PRN ×2 (06:09→19:11)
[2017-08-10] MEDS: IPRATROPIUM NEB FS 0.5 MG/2.5 ML AMPUL.NEB NEB PRN ×2 (06:09→19:10)
--- NOTE | 2017-08-10 07:03 | NUR ---
RN GPS BLOOD AT 0600 CALLED LABS FOR LAB WORK PER LABS THEY WILL COME FOR LABS WORK , PT. STILL REMAINED NPO FOR PROCEDURES , ENDORSE TO NEXT SHIFT FOR CONTINUITY OF CARE .
[2017-08-10] MEDS: GABAPENTIN 100 MG CAPSULE PO SCH ×3 (08:56→16:18)
[2017-08-10] MEDS: MULTIVIT, IRON, MIN NO. 8, FA 1 TAB PO SCH (08:56)
[2017-08-10] MEDS: QUETIAPINE FUMARATE 25 MG TABLET PO SCH ×3 (08:57→16:18)
[2017-08-10] MEDS: NICOTINE PATCH (21MG) 21 MG PATCH.TD24 TD SCH (08:57)
[2017-08-10] MEDS: HALOPERIDOL 1 MG TABLET PO SCH ×3 (08:57→16:18)
[2017-08-10] MEDS: Z GUARD REMEDY 2 OZ OINT TP SCH (09:00)
[2017-08-10 09:14] VITALS: BP 103/63
[2017-08-10 09:17] LABS: INR 0.96 (0.87-1.13)
[2017-08-10 09:32] LABS: THYROID STIMULATING HORMONE 1.559 uIU/mL (0.358-3.74)
--- NOTE | 2017-08-10 09:41 | NUR ---
ADITYA heard back from pt's conservator, Mariana, who informed SW that she needed more information on the procedure before giving consent. Mariana stated she needed detailed risk/benefits, which she felt were not addressed in the document. She also stated that the goal of procedure, the potential outcome and the follow-up plan is needed. ADITYA relayed this information to pt's nurse, Farnaz, who stated that she let the doctor know and that the doctor was advised to contact the conservator. SW provided contact information for the conservator to the nurse. The nurse also stated she forwarded it to the doctor.
--- NOTE | 2017-08-10 11:23 | NUR ---
ADITYA called pt's conservator Mariana at [phone] [cell] and informed her that the nurses and doctors are aware that more documentation is required. ADITYA stated she will fax it over as soon as the paperwork is completed. ADITYA also stated the doctor will give Mariana a call to discuss the situation.
[2017-08-10 16:50] VITALS: BP 137/70
[2017-08-10] MEDS: HYDROCODONE/APAP 5/325MG 1 EACH TABLET PO PRN (18:51)
--- NOTE | 2017-08-10 18:52 | NUR ---
PS-RN-NOTES: GAVE NORCO 5/325 MG PO DUE TO GENERALIZED PAIN 05/25 UPON PT REQUEST AND WILL CONTINUE TO MONITOR FOR EFFECTIVENESS OF MEDICATION
[2017-08-10 20:00] VITALS: BP 119/57
[2017-08-10] MEDS: TAMSULOSIN 0.4 MG CAP.SR.24H PO SCH (21:36)
[2017-08-10] MEDS: SENNOSIDES 8.6 MG TABLET PO SCH (21:37)
[2017-08-10] MEDS: QUETIAPINE FUMARATE 100 MG TABLET PO SCH (21:37)
[2017-08-10] MEDS: EZETIMIBE 10 MG TABLET PO SCH (21:45)
[2017-08-10] MEDS: ACETAMINOPHEN 325 MG TABLET PO PRN (21:51)
[2017-08-11] MEDS: HYDROCODONE/APAP 5/325MG 1 EACH TABLET PO PRN ×2 (02:19→11:04)
--- NOTE | 2017-08-11 02:24 | NUR ---
GPS/RN NOTE: C/O BACK PAIN, NORCO TAB 5/325 MG PO GIVEN
[2017-08-11] MEDS: IPRATROPIUM NEB FS 0.5 MG/2.5 ML AMPUL.NEB NEB PRN ×2 (02:34→18:07)
[2017-08-11] MEDS: ALBUTEROL FS 2.5 MG/0.5 ML VIAL.NEB NEB PRN ×2 (02:35→18:07)
[2017-08-11 08:00] VITALS: BP 135/63
[2017-08-11] MEDS: NICOTINE PATCH (21MG) 21 MG PATCH.TD24 TD SCH (11:03)
[2017-08-11] MEDS: MULTIVIT, IRON, MIN NO. 8, FA 1 TAB PO SCH (11:03)
[2017-08-11] MEDS: GABAPENTIN 100 MG CAPSULE PO SCH ×3 (11:04→17:32)
[2017-08-11] MEDS: QUETIAPINE FUMARATE 25 MG TABLET PO SCH ×3 (11:04→17:32)
[2017-08-11] MEDS: Z GUARD REMEDY 2 OZ OINT TP SCH (11:04)
--- NOTE | 2017-08-11 11:04 | NUR ---
RN NOTES ADMINISTERED NARCO 5/325 MG PO PRN FOR GENERALIZED PAIN ON SLIDING SCALE 10/10, PER PATIENT REQUEST, V/S TAKEN BP -135/63, P-99, CONTINUED MONITORING.
[2017-08-11] MEDS: HALOPERIDOL 1 MG TABLET PO SCH ×3 (11:06→17:33)
[2017-08-11 16:00] VITALS: BP 126/55
[2017-08-11 20:00] VITALS: BP 118/60
[2017-08-11] MEDS: SENNOSIDES 8.6 MG TABLET PO SCH (22:19)
[2017-08-11] MEDS: TAMSULOSIN 0.4 MG CAP.SR.24H PO SCH (22:19)
[2017-08-11] MEDS: QUETIAPINE FUMARATE 100 MG TABLET PO SCH (22:20)
[2017-08-11] MEDS: ZOLPIDEM TARTRATE 5 MG TABLET PO PRN (22:20)
[2017-08-11] MEDS: EZETIMIBE 10 MG TABLET PO SCH (22:25)
--- NOTE | 2017-08-11 22:25 | NUR ---
GPS/RN NOTE: C/O INSOMNIA, AMBIEN 5 MG TAB PO GIVEN.
[2017-08-12 08:00] VITALS: BP 132/50
[2017-08-12] MEDS: MULTIVIT, IRON, MIN NO. 8, FA 1 TAB PO SCH (08:53)
[2017-08-12] MEDS: GABAPENTIN 100 MG CAPSULE PO SCH ×3 (08:53→18:00)
[2017-08-12] MEDS: NICOTINE PATCH (21MG) 21 MG PATCH.TD24 TD SCH (08:53)
[2017-08-12] MEDS: HALOPERIDOL 1 MG TABLET PO SCH ×3 (08:54→18:00)
[2017-08-12] MEDS: QUETIAPINE FUMARATE 25 MG TABLET PO SCH ×3 (08:54→18:00)
[2017-08-12] MEDS: Z GUARD REMEDY 2 OZ OINT TP SCH (08:54)
[2017-08-12] MEDS: FERROUS SULFATE (325 MG) 325 MG/TAB TABLET PO SCH ×2 (08:54→18:00)
[2017-08-12] MEDS: HYDROCODONE/APAP 5/325MG 1 EACH TABLET PO PRN ×2 (09:00→21:34)
--- NOTE | 2017-08-12 09:01 | NUR ---
rn notes administered narco 5/325 mg po prn for generalized pain 07/25, per patient request v/s taken bp-132/50, p-63, encouraged to increase fluid intake. continued monitoring.
[2017-08-12] MEDS: ALBUTEROL FS 2.5 MG/0.5 ML VIAL.NEB NEB PRN (12:53)
[2017-08-12] MEDS: IPRATROPIUM NEB FS 0.5 MG/2.5 ML AMPUL.NEB NEB PRN (12:53)
[2017-08-12 16:00] VITALS: BP 102/50
[2017-08-12 20:00] VITALS: BP 137/62
[2017-08-12] MEDS: EZETIMIBE 10 MG TABLET PO SCH (21:28)
[2017-08-12] MEDS: QUETIAPINE FUMARATE 100 MG TABLET PO SCH (21:28)
[2017-08-12] MEDS: SENNOSIDES 8.6 MG TABLET PO SCH (21:28)
[2017-08-12] MEDS: TAMSULOSIN 0.4 MG CAP.SR.24H PO SCH (21:28)
--- NOTE | 2017-08-13 02:38 | NUR ---
GPS/RN NOTE: PATIENT ASKING FOR BREATHING TREATMENT. PAGED RESP. THERAPIST
[2017-08-13 08:00] VITALS: BP 122/53
[2017-08-13 08:06] LABS: IMMUNOGLOBULIN A, SERUM 312 mg/dL (61-437); IMMUNOGLOBULIN G, SERUM 795 mg/dL (700-1600); IMMUNOGLOBULIN M, SERUM 84 mg/dL (15-143)
--- NOTE | 2017-08-13 09:00 | NUR ---
[id number]: CALLED DANIE FROM [facility] TO GET CONSENT FOR BIOPSY. LEFT MESSAGES ON [phone] AND [phone].
[2017-08-13] MEDS: MULTIVIT, IRON, MIN NO. 8, FA 1 TAB PO SCH (09:16)
[2017-08-13] MEDS: FERROUS SULFATE (325 MG) 325 MG/TAB TABLET PO SCH ×2 (09:16→16:40)
[2017-08-13] MEDS: GABAPENTIN 100 MG CAPSULE PO SCH ×3 (09:16→16:36)
[2017-08-13] MEDS: NICOTINE PATCH (21MG) 21 MG PATCH.TD24 TD SCH (09:16)
[2017-08-13] MEDS: HALOPERIDOL 1 MG TABLET PO SCH ×3 (09:17→16:36)
[2017-08-13] MEDS: QUETIAPINE FUMARATE 25 MG TABLET PO SCH ×3 (09:17→16:36)
[2017-08-13] MEDS: HYDROCODONE/APAP 5/325MG 1 EACH TABLET PO PRN (09:19)
--- NOTE | 2017-08-13 09:19 | NUR ---
[id number]: GAVE NORCO 5/325 MG PO DUE TO GENERALIZED PAIN 05/25 UPON PT REQUEST AND WILL CONTINUE TO MONITOR FOR EFFECTIVENESS OF MEDICATION
[2017-08-13] MEDS: IPRATROPIUM NEB FS 0.5 MG/2.5 ML AMPUL.NEB NEB PRN ×2 (11:02→16:48)
[2017-08-13] MEDS ORDERED: ALBUTEROL FS 2.5 MG/0.5 ML VIAL.NEB ONE (11:16)
[2017-08-13] MEDS ORDERED: IPRATROPIUM NEB FS 0.5 MG/2.5 ML AMPUL.NEB ONE (11:16)
[2017-08-13] MEDS: Z GUARD REMEDY 2 OZ OINT TP SCH (11:29)
[2017-08-13] MEDS: GUAIFENESIN 300 MG/15 ML UDC PO PRN (12:34)
[2017-08-13 16:00] VITALS: BP 104/69
--- NOTE | 2017-08-13 16:10 | NUR ---
[id number]: CALLED DANIE FROM [facility] TO GET CONSENT FOR BIOPSY. LEFT MESSAGES ON [phone] AND [phone]. JAVA LEAD DEVELOPER MADE AWARE. CHARGE NURSE IS AWARE.
[2017-08-13] MEDS: ALBUTEROL FS 2.5 MG/0.5 ML VIAL.NEB NEB PRN (16:47)
--- NOTE | 2017-08-13 18:03 | NUR ---
RT GAVE PT X2 TX PRN. PULLED FROM [facility] IN A DIFFERENT FLOOR. [facility] CELL AUTOMATICALLY PLACED AN ORDER FOR MEDS PULLED OUT
[2017-08-13] MEDS: QUETIAPINE FUMARATE 100 MG TABLET PO SCH (21:28)
[2017-08-13] MEDS: EZETIMIBE 10 MG TABLET PO SCH (21:28)
[2017-08-13] MEDS: TAMSULOSIN 0.4 MG CAP.SR.24H PO SCH (21:28)
[2017-08-13] MEDS: SENNOSIDES 8.6 MG TABLET PO SCH (21:29)
[2017-08-13 22:59] VITALS: BP 123/53
[2017-08-13 23:30] VITALS: BP 125/63
[2017-08-14] MEDS: ALBUTEROL FS 2.5 MG/0.5 ML VIAL.NEB NEB PRN ×2 (03:44→17:11)
[2017-08-14] MEDS: IPRATROPIUM NEB FS 0.5 MG/2.5 ML AMPUL.NEB NEB PRN ×2 (03:44→17:11)
[2017-08-14] MEDS: HYDROCODONE/APAP 5/325MG 1 EACH TABLET PO PRN ×2 (04:08→13:26)
--- NOTE | 2017-08-14 04:16 | NUR ---
RN NOTES ADMINISTERED NARCO 5/325 MG PO PRN FOR BACK/GENERALIZED PAIN ON SLIDING SCALE 8/10, PER PATIENT REQUEST, V/S TAKEN BP -124/64, P-80, CONTINUED MONITORING.
[2017-08-14] MEDS: GUAIFENESIN 300 MG/15 ML UDC PO PRN ×2 (06:21→17:48)
[2017-08-14 08:00] VITALS: BP 139/64
[2017-08-14] MEDS: FERROUS SULFATE (325 MG) 325 MG/TAB TABLET PO SCH ×2 (08:22→17:37)
[2017-08-14] MEDS: GABAPENTIN 100 MG CAPSULE PO SCH ×3 (08:22→17:37)
[2017-08-14] MEDS: MULTIVIT, IRON, MIN NO. 8, FA 1 TAB PO SCH (08:23)
[2017-08-14] MEDS: NICOTINE PATCH (21MG) 21 MG PATCH.TD24 TD SCH (08:23)
[2017-08-14] MEDS: QUETIAPINE FUMARATE 25 MG TABLET PO SCH ×3 (08:57→17:37)
[2017-08-14] MEDS: Z GUARD REMEDY 2 OZ OINT TP SCH (09:00)
[2017-08-14] MEDS ORDERED: HALOPERIDOL 1 MG TABLET PO SCH (09:00)
[2017-08-14 09:16] LABS: *SPE A/G RATIO 0.9 (0.7-1.7); *SPE ALBUMIN 2.9 g/dL (2.9-4.4); *SPE ALPHA-1-GLOBULIN 0.3 g/dL (0.0-0.4); *SPE BETA GLOBULIN 1.1 g/dL (0.7-1.3); *SPE GLOBULIN, TOTAL 3.2 g/dL (2.2-3.9); *SPE M-SPIKE Not Observed g/dL (Not Observed); *SPE PROTEIN TOTAL 6.1 g/dL (6.0-8.5); *SPEGAMMA GLOBULIN 0.9 g/dL (0.4-1.8)
--- NOTE | 2017-08-14 13:41 | NUR ---
ADITYA called Dr. Flores [pt's oncologist] at [phone]. Dr. Flores stated that she called the conservator numerous times and left her contact information. Dr. Flores stated that she never received a call back from the conservator. Dr. Flores gave SW permission to forward her contact information to the conservator. ADITYA called and left a voicemail for patient's conservator, Mariana, [office] and [phone] [cell]. ADITYA then tried calling Mariana again at [phone] and was able to get in contact with her. ADITYA relayed Dr. Flores's contact information. Mariana stated she had been busy with another client but will get in touch with the Dr. MILLER. Mariana stated that she will tell the doctor exactly what documents she needs. ADITYA stated that she will fax over any information/paperwork as soon as it is completed by the doctor. ADITYA will follow up.
[2017-08-14 16:00] VITALS: BP 142/63
--- NOTE | 2017-08-14 16:29 | NUR ---
Pt's conservator Mariana [phone] called SW and informed her that she is consenting to the procedure for patient. Mariana stated that she is going to fax the consent directly to Dr. Flores.
[2017-08-14] MEDS: HALOPERIDOL 1 MG TABLET PO SCH (17:40)
[2017-08-14] MEDS: QUETIAPINE FUMARATE 100 MG TABLET PO SCH (21:16)
[2017-08-14] MEDS: EZETIMIBE 10 MG TABLET PO SCH (21:16)
[2017-08-14] MEDS: SENNOSIDES 8.6 MG TABLET PO SCH (21:16)
[2017-08-14] MEDS: TAMSULOSIN 0.4 MG CAP.SR.24H PO SCH (21:16)
[2017-08-15] MEDS: HYDROCODONE/APAP 5/325MG 1 EACH TABLET PO PRN ×3 (02:10→15:11)
[2017-08-15] MEDS: ALBUTEROL FS 2.5 MG/0.5 ML VIAL.NEB NEB PRN ×2 (02:30→19:16)
[2017-08-15] MEDS: IPRATROPIUM NEB FS 0.5 MG/2.5 ML AMPUL.NEB NEB PRN ×2 (02:30→19:16)
[2017-08-15] MEDS: GUAIFENESIN 300 MG/15 ML UDC PO PRN ×2 (02:34→10:57)
[2017-08-15 08:00] VITALS: BP 99/59
[2017-08-15] MEDS: FERROUS SULFATE (325 MG) 325 MG/TAB TABLET PO SCH ×2 (08:32→17:14)
[2017-08-15] MEDS: MULTIVIT, IRON, MIN NO. 8, FA 1 TAB PO SCH (08:32)
[2017-08-15] MEDS: HALOPERIDOL 1 MG TABLET PO SCH ×2 (08:33→17:15)
[2017-08-15] MEDS: QUETIAPINE FUMARATE 25 MG TABLET PO SCH ×3 (08:33→17:15)
[2017-08-15] MEDS: GABAPENTIN 100 MG CAPSULE PO SCH ×3 (08:33→17:15)
[2017-08-15] MEDS: NICOTINE PATCH (21MG) 21 MG PATCH.TD24 TD SCH (08:33)
[2017-08-15] MEDS: Z GUARD REMEDY 2 OZ OINT TP SCH (09:00)
[2017-08-15] MEDS ORDERED: MIDAZOLAM HCL 5MG/ML VIAL 25 MG/5 ML VIAL IV ONE (11:30)
[2017-08-15] MEDS ORDERED: NALOXONE PREFILLED SYRINGE 2 MG/2 ML SYRINGE IV ONE (11:30)
[2017-08-15] MEDS ORDERED: FENTANYL PF 250MCG/5ML AMPUL IV ONE (11:30)
--- NOTE | 2017-08-15 11:44 | NUR ---
[id number]: HOTEL YARDPERSON [place] SPOKE WITH DR. BALLARD REGARDING PT GOING FROM [facility] TO RADIOLOGY FOR LUNG BIOPSY.
[2017-08-15 12:06] LABS: INR 0.99 (0.87-1.13); PROTHROMBIN TIME 10.3 SECS (9.5-12.7)
[2017-08-15 15:43] VITALS: BP 146/77
[2017-08-15 20:11] VITALS: BP 150/78
[2017-08-15] MEDS: EZETIMIBE 10 MG TABLET PO SCH (20:49)
[2017-08-15] MEDS: QUETIAPINE FUMARATE 100 MG TABLET PO SCH (20:49)
[2017-08-15] MEDS: SENNOSIDES 8.6 MG TABLET PO SCH (20:49)
[2017-08-15] MEDS: TAMSULOSIN 0.4 MG CAP.SR.24H PO SCH (20:49)
[2017-08-15] MEDS: ACETAMINOPHEN 325 MG TABLET PO PRN (20:50)
[2017-08-16] MEDS: HYDROCODONE/APAP 5/325MG 1 EACH TABLET PO PRN ×4 (01:42→22:34)
[2017-08-16] MEDS: ALBUTEROL FS 2.5 MG/0.5 ML VIAL.NEB NEB PRN ×3 (02:11→22:55)
[2017-08-16] MEDS: IPRATROPIUM NEB FS 0.5 MG/2.5 ML AMPUL.NEB NEB PRN ×3 (02:11→22:55)
[2017-08-16] MEDS: GUAIFENESIN 300 MG/15 ML UDC PO PRN ×3 (02:27→22:41)
[2017-08-16] MEDS: ACETAMINOPHEN 325 MG TABLET PO PRN (06:10)
[2017-08-16 08:00] VITALS: BP 113/55
[2017-08-16] MEDS: MULTIVIT, IRON, MIN NO. 8, FA 1 TAB PO SCH (08:10)
[2017-08-16] MEDS: FERROUS SULFATE (325 MG) 325 MG/TAB TABLET PO SCH ×2 (08:11→16:30)
[2017-08-16] MEDS: GABAPENTIN 100 MG CAPSULE PO SCH ×3 (08:11→16:30)
[2017-08-16] MEDS: HALOPERIDOL 1 MG TABLET PO SCH ×2 (08:11→16:30)
[2017-08-16] MEDS: QUETIAPINE FUMARATE 25 MG TABLET PO SCH ×3 (08:11→16:32)
[2017-08-16] MEDS: NICOTINE PATCH (21MG) 21 MG PATCH.TD24 TD SCH (08:11)
[2017-08-16] MEDS: Z GUARD REMEDY 2 OZ OINT TP SCH (08:12)
[2017-08-16] MEDS: BOOST FOOD- BERRY 237 ML BOX PO SCH ×2 (13:41→16:29)
[2017-08-16 16:00] VITALS: BP 118/58
[2017-08-16 20:00] VITALS: BP 161/84
[2017-08-16] MEDS: EZETIMIBE 10 MG TABLET PO SCH (22:25)
[2017-08-16] MEDS: TAMSULOSIN 0.4 MG CAP.SR.24H PO SCH (22:25)
[2017-08-16] MEDS: QUETIAPINE FUMARATE 100 MG TABLET PO SCH (22:25)
[2017-08-16] MEDS: SENNOSIDES 8.6 MG TABLET PO SCH (22:25)
--- NOTE | 2017-08-16 22:44 | NUR ---
GPS/RN C/O COUGH, ROBITUSSIN PO WAS GIVEN ORDERED. WILL MONITOR.
--- NOTE | 2017-08-16 23:57 | NUR ---
GPS/RN PATIENT IS SLEEPING AT THIS TIME, AROUSABLE, APPEAR COMFORTABLE, NO DISTRESS NOTED, CALL LIGHT IN REACH. WILL CONTINUE TO MONITOR.
[2017-08-17] MEDS: ACETAMINOPHEN 325 MG TABLET PO PRN (01:36)
[2017-08-17] MEDS: ZOLPIDEM TARTRATE 5 MG TABLET PO PRN (01:37)
--- NOTE | 2017-08-17 01:39 | NUR ---
GPS/RN PATIENT AWAKE AT THIS TIME, C/O GEN. BODY PAIN AND WANTED ONLY TYLENOL FOR THIS PAIN, AND REQUESTED ALSO FOR AMBIEN. MEDS GIVEN ORDERED. WILL CONTINUE TO MONITOR.
--- NOTE | 2017-08-17 02:54 | NUR ---
GPS/RN PATIENT IS SLEEPING AT THIS TIME, AROUSABLE, WILL CONTINUE TO MONITOR.
--- NOTE | 2017-08-17 06:09 | NUR ---
GPS/RN STILL SLEEPING, AROUSABLE, APPEAR COMFORTABLE, NO DISTRESS NOTED, ALL NEEDS ATTENDED AT THIS TIME. WILL CONTINUE TO MONITOR.
[2017-08-17 08:00] VITALS: BP 129/67
[2017-08-17] MEDS: BOOST FOOD- BERRY 237 ML BOX PO SCH (08:00)
[2017-08-17] MEDS: GABAPENTIN 100 MG CAPSULE PO SCH ×2 (08:40→12:08)
[2017-08-17] MEDS: FERROUS SULFATE (325 MG) 325 MG/TAB TABLET PO SCH (08:41)
[2017-08-17] MEDS: BENZTROPINE MESYLATE (1 MG) 1 MG TABLET PO SCH ×2 (08:41→12:08)
[2017-08-17] MEDS: MULTIVIT, IRON, MIN NO. 8, FA 1 TAB PO SCH (08:41)
[2017-08-17] MEDS: HALOPERIDOL 1 MG TABLET PO SCH ×2 (08:42→12:07)
[2017-08-17] MEDS: NICOTINE PATCH (21MG) 21 MG PATCH.TD24 TD SCH (08:42)
[2017-08-17] MEDS: Z GUARD REMEDY 2 OZ OINT TP SCH (09:00)
[2017-08-17] MEDS: HYDROCODONE/APAP 5/325MG 1 EACH TABLET PO PRN (09:02)
[2017-08-17] MEDS: GUAIFENESIN 300 MG/15 ML UDC PO PRN (09:02)
--- NOTE | 2017-08-17 09:38 | NUR ---
DR. SAUCEDO GAVE AN ORDER TO D/C HOLD AND D/C TO [facility] AND TO CONTINUE SAME MEDS INCLUDING PRN. PT. WITHOUT DISTRESS, DENIES SUICIDAL AND HOMICIDAL AND TO FOLLOW UP WITH PSYCH AND MEDICAL DOCTORS.
--- NOTE | 2017-08-17 10:07 | NUR ---
ADITYA spoke with pt's conservator Mariana, / fax number [phone]. Mariana approved patient going back to [facility] today. Mariana requested progress notes/medications to be faxed over and ADITYA complied.
--- NOTE | 2017-08-17 11:33 | NUR ---
ADITYA scheduled a follow-up appointment with patient's oncologist, Dr. Flores on August 24 at 11am. Address: [address] [place] [address], [phone]
--- NOTE | 2017-08-17 12:52 | NUR ---
Discharge Note Patient will be discharged to [facility], [address] [place] [address]; [phone]. Patients conservator, Mariana [phone] has been informed and required documents have been faxed over to her by SW. Patient will follow up with his psychiatrist, Dr. Zurita [address] [address], [place] [address], [phone] on Monday08/23/17 at 1pm. Patient will also follow up with his sales and service consultant, Dr. Salcido; [address] [place] [address] next week. A follow up appointment with oncologist Dr. Flores on August 24 at 11am. Address: [address] [place] [address], [phone] has been set. The facility is aware of this outpatient appointment. As patient will be in a facility, referrals for a Nicotine Anonymous meeting were inappropriate.
--- NOTE | 2017-08-17 14:10 | NUR ---
PATIENT CLEARED FOR DISCHARGE BY DR SAUCEDO AND DR BALLARD TO [facility] [address] [facility]. MEDICATIONS RECONCILED BY BOTH DR'S, MEDICATIONS, EXIT CARE PACKET AND AFTERCARE PLAN EXPLAINED TO PATIENT, VERBALIZED UNDERSTANDING. ALL BELONGINGS RETURNED TO PATIENT AND SIGNED FOR BY PATIENT. PATIENT REFUSED D/C PHOTOS X 3, EXPLAINED RISKS AND BENEFITS, STATED " I JUST HAD PICTURES TAKEN". PATIENT DENIES SI/HI/AH UPON DISCHARGE, PSYCHIATRIC TREATMENT PLANS MET. REPORT GIVEN TO MOIZ AT FACILITY. PER SPINE SPECIALIST, SHE SPOKE WITH DOREEN , DIFFERENTIAL REPAIRER AT FACILITY AND HE IS AWARE THAT PATIENT WILL HAVE OUTPATIENT PET CT SCAN SCHEDULED ON AUGUST 24, [address] GARCIA AT [address], [facility]. [id number] . PER DOREEN AT FACILITY HE MADE NURSING STAFF AWARE. UPON DISCHARGE PATIENT IS COOPERATIVE NO AGITATION WITH AGGRESSION NOTED, LEFT UNIT CALM, NO DISTRESS WITH TRANSPORT AT SIDE. Addendum: 08/17/17 at 1558 by JOYCE METZ RN PER SPINE SPECIALIST, PATIENT'S CONSERVATOR DANIE HAS BEEN MADE AWARE OF DISCHARGE TO [facility].
[2017-08-17] MEDS ORDERED: QUETIAPINE FUMARATE 100 MG TABLET PO SCH (22:00)
== END 2017-08-17 14:10 | DRG 885 ==
LOC: ER 13:50 → GPS 16:54
PROVIDERS: ADMIT Psychiatry & Neurology Psychosomatic Medicine; ATTEND Internal Medicine
PROC: 0BBF3ZX Excision of Right Lower Lung Lobe, Percutaneous Approach, Diagnostic (ICD-10-PCS; principal; 2017-08-15)
DX: F25.9 Schizoaffective disorder, unspecified (principal); F01.51 Vascular dementia, unspecified severity, with behavioral disturbance; N17.0 Acute kidney failure with tubular necrosis; G93.41 Metabolic encephalopathy; F02.81 Dementia in other diseases classified elsewhere, unspecified severity, with behavioral disturbance; F23 Brief psychotic disorder; G30.9 Alzheimer's disease, unspecified; J44.9 Chronic obstructive pulmonary disease, unspecified; E78.5 Hyperlipidemia, unspecified; K21.9 Gastro-esophageal reflux disease without esophagitis; Z86.73 Personal history of transient ischemic attack (TIA), and cerebral infarction without residual deficits; Z73.6 Limitation of activities due to disability; N40.0 Benign prostatic hyperplasia without lower urinary tract symptoms; I10 Essential (primary) hypertension; F41.9 Anxiety disorder, unspecified; R26.9 Unspecified abnormalities of gait and mobility; F43.10 Post-traumatic stress disorder, unspecified; R91.8 Other nonspecific abnormal finding of lung field; Z96.653 Presence of artificial knee joint, bilateral; Z79.899 Other long term (current) drug therapy; F32.9 Major depressive disorder, single episode, unspecified; F17.210 Nicotine dependence, cigarettes, uncomplicated
CPT/HCPCS: 36415; 71010-TC; 71250-TC; 77012-TC; 80048-TC; 80076-TC; 80305; 81000-TC; 82272-TC; 82728-TC; 82746; 82784; 83540-TC; 84155; 84165; 84439-TC; 84443-TC; 85025-TC; 85045-TC; 85610-TC; 85730-TC; 86334; 87081-TC; 88305-TC; A4606; G0480; J2250; J2310; J3010; J7050; Z7610

== ENCOUNTER 2017-09-14 16:10 | Inpatient (IN) | payer MEDICARE, MEDICAID ==
[~2017-09-14] VITALS: Ht 180.3 cm; Wt 65.8 kg
[~2017-09-14 16:10] MED LIST changes: +ACET-868 PO; +BISA10SU8 RC; -ENAL10TA75 PO; -ENAL20TA70 PO; -HYDR-3026 PO; +HYDR-3326 PO; -HYDR-552 PO; +MAGN400O6 PO; +NICO1PAT28 TD; -QUET25TA PO; +SENN8.6T6 PO; -SODI1TAB3 PO; -ZOLP5TAB7 PO
[2017-09-14] MEDS ORDERED: ASPIRIN 81 MG TAB.CHEW PO ONE (16:30)
[2017-09-14] MEDS ORDERED: ASPIRIN 81 MG TAB.CHEW ONE (16:31)
--- NOTE | 2017-09-14 16:32 | NUR ---
RAC #18 IV ACCESS. BLOOD SAMPLE COLLECTED SENT TO LAB
[2017-09-14 16:34] LABS: BASOPHILS % (AUTO) 0.4 % (0.0-2.0); EOSINOPHILS # (AUTO) 0.3 /CMM (0.0-0.7); EOSINOPHILS % (AUTO) 4.3 % (0.0-6.0); HEMATOCRIT 35 % (39-51); HEMOGLOBIN 11.5 g/dL (13.5-17.5); LYMPHOCYTES # (AUTO) 0.8 /CMM (0.8-4.8); LYMPHOCYTES % (AUTO) 11.5 % (20.0-44.0); MEAN CORPUSCULAR HEMOGLOBIN 26 PG (26.0-33.0); MEAN CORPUSCULAR HGB CONC 33 g/dl (31.0-36.0); MEAN CORPUSCULAR VOLUME 78 fL (80-96); MONOCYTES # (AUTO) 0.4 /CMM (0.1-1.30); MONOCYTES % (AUTO) 5.9 % (2.0-12.0); NEUTROPHILS # (AUTO) 5.6 /CMM (1.8-8.9); NEUTROPHILS % (AUTO) 77.9 % (43.0-81.0); PLATELET COUNT (AUTO) 232 /CMM (150-450); WHITE BLOOD COUNT (AUTO) 7.1 K/uL (4.3-11.0)
--- NOTE | 2017-09-14 16:35 | NUR ---
Pt BIB private ambulance, reports for irregular heartbeat -- A flutter. Pt denies CP, SOB, dizziness, n/v, no complaints, no distress noted.
[2017-09-14 16:48] LABS: INR 0.89 (0.87-1.13); PROTHROMBIN TIME 9.3 SECS (9.5-12.7)
[2017-09-14 16:49] LABS: ALANINE AMINOTRANSFERASE 18 U/L (12-78); ALBUMIN 3.2 g/dL (3.4-5.0); ALKALINE PHOSPHATASE 130 U/L (46-116); ASPARTATE AMINOTRANSFERASE 19 U/L (15-37); BILIRUBIN,TOTAL 0.2 mg/dL (0.2-1.0); CALCIUM, SERUM 9.4 mg/dL (8.5-10.1); CARBON DIOXIDE 31 mmol/L (21-32); CHLORIDE 99 mmol/L (98-107); GLUCOSE 128 mg/dL (74-106); SODIUM SERUM 134 mmol/L (136-145); TOTAL PROTEIN, SERUM 6.5 g/dL (6.4-8.2); UREA NITROGEN, BLOOD 24 mg/dL (7-18)
[2017-09-14 16:51] LABS: TROPONIN I < 0.017 ng/mL (0.00-0.056)
[2017-09-14] MEDS ORDERED: GABA-534 PO (17:21)
[2017-09-14] MEDS ORDERED: DOCU-25 PO (17:21)
[2017-09-14] MEDS ORDERED: AMIN30LI4 PO (17:21)
[2017-09-14] MEDS ORDERED: FERR325T28 PO (17:21)
[2017-09-14] MEDS ORDERED: ZOLP5TAB2 PO (17:21)
[2017-09-14] MEDS ORDERED: NA P133E RC (17:21)
[2017-09-14] MEDS ORDERED: QUET25TA PO (17:21)
[2017-09-14] MEDS ORDERED: HALO5TAB PO (17:21)
[2017-09-14] MEDS ORDERED: IPRA3AMP IH (17:21)
[2017-09-14] MEDS ORDERED: BENZ0.5T3 PO (17:21)
[2017-09-14 18:00] VITALS: BP 160/75
--- NOTE | 2017-09-14 18:01 | NUR ---
Called report to [facility]. Addendum: 09/14/17 at 1806 by AGUSTIN Room is not ready yet
--- NOTE | 2017-09-14 18:14 | NUR ---
[facility] called, okay to move pt. Awaiting Transfer packet
[2017-09-14] MEDS ORDERED: MAG HYDROX/AL HYDROX/SIMETH 30 ML UDC ONE (18:21)
--- NOTE | 2017-09-14 18:24 | NUR ---
Pt c/o acid reflux bothering MD bismark informed, admin med.
[2017-09-14] MEDS ORDERED: MAG HYDROX/AL HYDROX/SIMETH 30 ML UDC PO ONE (18:30)
[2017-09-14] MEDS ORDERED: MAG HYDROX/AL HYDROX/SIMETH 30 ML UDC PO PRN (19:00)
[2017-09-14] MEDS ORDERED: NA PHOS,M-B/NA PHOS,DI-BA 1 EA ENEMA RC PRN (19:00)
[2017-09-14] MEDS ORDERED: Medication Not On Formulary EA (Ipratropium/Albuterol Sulfate (Duoneb 2.5-0.5 Mg/3 Ml So IH PRN (19:00)
[2017-09-14] MEDS ORDERED: MAGNESIUM HYDROXIDE 30 ML UDC PO PRN ×2 (19:00)
[2017-09-14] MEDS ORDERED: ACETAMINOPHEN 325 MG TABLET PO PRN (19:00)
[2017-09-14] MEDS ORDERED: Z GUARD REMEDY 2 OZ OINT TP PRN (19:00)
[2017-09-14] MEDS ORDERED: ONDANSETRON HCL/PF 4 MG/2 ML VIAL IVP PRN (19:00)
[2017-09-14] MEDS ORDERED: BISACODYL SUPP (10 MG) 10 MG/SUPP.RECT SUPP.RECT RC PRN (19:00)
[2017-09-14] MEDS ORDERED: ZOLPIDEM TARTRATE 5 MG TABLET PO PRN (19:00)
[2017-09-14] MEDS: BENZTROPINE MESYLATE (1 MG) 1 MG TABLET PO SCH (19:11)
--- NOTE | 2017-09-14 19:15 | NUR ---
FIELD SALES TRAINER OPENING NOTES RECEIVED PATIENT RESTING IN BED, WAS RECEIVED FROM ER BY AM RN, NO C/O PAIN, NO SOB, NO DIZZINESS, NO ACUTE CHANGES NOTED. A & O X 2-3 WITH FORGETFULNESS DUE TO HX OF DEMENTIA/ALZHEIMER. RESP EVEN & NONLABORED. AMBULATORY WITH WALKER. BODY ASSESSMENT DONE & DOCUMENTED. ALL BELONGINGS ACCOUNTED FOR & NOTED BY SEWER REPAIRER. IV ACCESS TO RAC, INTACT PATENT, HL. ON CARDIAC DIET. SAFETY MEASURES IN PLACE. BED IN LOW LOCKED POSITION. CALL LIGHT WITHIN REACH. WILL CONTINUE TO MONITOR FOR SAFETY & COMFORT.
[2017-09-14 20:00] VITALS: BP 148/72
[2017-09-14] MEDS ORDERED: EZETIMIBE 10 MG TABLET PO SCH (22:00)
[2017-09-14] MEDS: TAMSULOSIN 0.4 MG CAP.SR.24H PO SCH (22:15)
[2017-09-14] MEDS: QUETIAPINE FUMARATE 25 MG TABLET PO SCH (22:16)
[2017-09-14] MEDS: SENNOSIDES 8.6 MG TABLET PO SCH (22:16)
--- NOTE | 2017-09-14 23:00 | NUR ---
HOLTER TECHNICIAN NOTES PATIENT ASKED FOR ASSISTANCE TO USE BRP, WHEN ASSISTED, SUDDENLY GOT AGITATED & REFUSED TO BE ASSISTED FOR FALL PREVENTION. ALSO ASKED THE RN NOT TO FOLLOW HIM INSIDE THE BATHROOM. ALL RISKS OF FALL WERE EXPLAINED, STILL PT REFUSED TO GET HELP. BUT MONITORED CLOSELY.
[2017-09-14] MEDS: MAG HYDROX/AL HYDROX/SIMETH 30 ML UDC PO PRN (23:40)
--- NOTE | 2017-09-14 23:40 | NUR ---
PRN MAALOX GIVEN PATIENT REPORTED STOMACH INDIGESTION. PRN MAALOX GIVEN ORDERED, WILL OBSERVE FOR EFFECTIVENESS.
[2017-09-15] VITALS (7 sets, daily range): BP systolic 110–147; BP diastolic 70–85
[2017-09-15] MEDS: HYDROCODONE/APAP 5/325MG 1 EACH TABLET PO PRN ×2 (03:42→20:27)
--- NOTE | 2017-09-15 03:42 | NUR ---
PRN NORCO GIVEN PT C/O GENERALIZED BODY ACHE /O. SEEMS TO BE IRRITABLE DUE TO PAIN, PT IS NPO FOR US ABDOMEN IN AM. CHECKED WITH CHARGE NURSE & CN SUGGESTED TO GIVE NORCO WITH SIP OF WATER, WILL OBSERVE FOR EFFECTIVENESS.
--- NOTE | 2017-09-15 06:40 | NUR ---
PC TECHNICIAN CLOSING NOTES PATIENT SLEPT INTERMITTENTLY @ NIGHT. A & O X 2-3 WITH FORGETFULNESS D/T DEMENTIA. SHOWS EPISODES OF AGITATION @ TIMES. REINFORCEMENT NEEDED. ON TELE MONITORING WITH SR WITH PVC/TRIGEMINY 67. AMBULATORY WITH WALKER WITH STAND BY ASSISTANCE. NPO AFTER MIDNIGHT FOR US ABDOMEN. PRN MEDS GIVEN. IV ACCESS TO RAC, INTACT PATENT, HL. ALL NEEDS MET. BED IN LOW LOCKED POSITION. CALL LIGHT WITHIN REACH, WILL ENDORSE TO AM RN.
[2017-09-15 07:29] LABS: BASOPHILS # (AUTO) 0.1 /CMM (0.0-0.2); BASOPHILS % (AUTO) 0.7 % (0.0-2.0); EOSINOPHILS # (AUTO) 0.6 /CMM (0.0-0.7); EOSINOPHILS % (AUTO) 8.9 % (0.0-6.0); HEMATOCRIT 36 % (39-51); HEMOGLOBIN 11.8 g/dL (13.5-17.5); LYMPHOCYTES # (AUTO) 1.3 /CMM (0.8-4.8); LYMPHOCYTES % (AUTO) 18.3 % (20.0-44.0); MEAN CORPUSCULAR HEMOGLOBIN 26 PG (26.0-33.0); MEAN CORPUSCULAR HGB CONC 33 g/dl (31.0-36.0); MEAN CORPUSCULAR VOLUME 80 fL (80-96); MONOCYTES # (AUTO) 0.5 /CMM (0.1-1.30); MONOCYTES % (AUTO) 6.6 % (2.0-12.0); NEUTROPHILS # (AUTO) 4.7 /CMM (1.8-8.9); NEUTROPHILS % (AUTO) 65.5 % (43.0-81.0); PLATELET COUNT (AUTO) 235 /CMM (150-450); RDW COEFFICIENT OF VARIATION 16.2 (11.5-15.0); RED BLOOD CELL COUNT(AUTO) 4.53 MIL/uL (4.5-6.0); WHITE BLOOD COUNT (AUTO) 7.3 K/uL (4.3-11.0)
--- NOTE | 2017-09-15 07:30 | NUR ---
FARM AGENT OPENING NOTES RECEIVED PATIENT AWAKE IN BED IN NO ACUTE SIGNS OF DISTRESS. A/O X 3, VERBALLY RESPONSIVE DENIES PAIN OR DISCOMFORTS AT THIS TIME. PT FOR U/S OF ABDOMEN THIS MORNING, NPO MAINTAINED POST MIDNIGHT. ON TELE-MONITORING WITH CURRENT READING OF SR WITH PVC'S AND HR OF 62, NO C/O CHEST PAIN VOICED. ON ROOM AIR, BREATHING EVEN AND UNLABORED. BACK BRACE IN PLACED, AMBULATORY WITH WALKER. IV ACCESS TO RAC, INTACT PATENT, HL. BED IN LOW LOCKED POSITION. CALL LIGHT WITHIN REACH. WILL CONTINUE TO MONITOR PT ACCORDINGLY.
[2017-09-15 07:43] LABS: CALCIUM, SERUM 9.8 mg/dL (8.5-10.1); CARBON DIOXIDE 27 mmol/L (21-32); CHLORIDE 101 mmol/L (98-107); GLUCOSE 88 mg/dL (74-106); PHOSPHORUS 3.2 mg/dL (2.5-4.9); POTASSIUM 4.4 mmol/L (3.5-5.1); SODIUM SERUM 135 mmol/L (136-145); UREA NITROGEN, BLOOD 23 mg/dL (7-18)
[2017-09-15 07:58] LABS: CHOLESTEROL 113 mg/dL (<200); HDL CHOLESTEROL 57 mg/dL (40-60); LDL 48 mg/dL (0-99); TRIGLYCERIDES 26 mg/dL (30-150)
--- NOTE | 2017-09-15 08:30 | NUR ---
RN NOTES PATIENT SEEN AND EVALUATED BY DR. EHR WITH ORDER TO DISCONTINUE TELE-MONITORING. ORDER CARRIED OUT, PT WITH NO C/O CHEST PAIN OR DISCOMFORTS VOICED. WILL CONTINUE TO MONITOR.
[2017-09-15] MEDS: PROSOURCE / PROSTAT (PYXIS) 30 ML UDC PO SCH (09:15)
[2017-09-15] MEDS: BENZTROPINE MESYLATE (1 MG) 1 MG TABLET PO SCH ×3 (09:16→16:49)
[2017-09-15] MEDS: FERROUS SULFATE (325 MG) 325 MG/TAB TABLET PO SCH ×2 (09:16→16:49)
[2017-09-15] MEDS: GABAPENTIN 300 MG CAPSULE PO SCH ×3 (09:16→16:49)
[2017-09-15] MEDS: DOCUSATE SODIUM 100 MG CAPSULE PO SCH ×2 (09:16→16:49)
[2017-09-15] MEDS: MULTIVIT, IRON, MIN NO. 8, FA 1 TAB PO SCH (09:17)
[2017-09-15] MEDS: IV NS 0.9% 1,000 ML IV PRN ×2 (10:57→21:50)
--- NOTE | 2017-09-15 11:00 | NUR ---
WOUND CARE CONSULT: PT HAVING PROCEDURE AT THIS TIME BY FIRE PILOT. CURRENT KOFFI SCORE IS 17. ALL SKIN PROTECTION MEASURES IN PLACE AND DISCUSSED WITH NURSING STAFF. WILL SEE PRN.
--- NOTE | 2017-09-15 11:10 | NUR ---
RN NOTES PT SEEN AND EVALUATED BY WILMAN REID DPM WITH ORDER TO OBTAIN CONSENT FOR RIGHT FOOT WOUND DEBRIDEMENT. PROCEDURE EXPLAINED TO PT AND VERBALIZED UNDERSTANDING. CONSENT SIGNED BY PT AND FILED ON CHART.
--- NOTE | 2017-09-15 11:25 | NUR ---
WOUND CARE: PT SEEN FOR SKIN ASSESSMENT AND NOTED TO HAVE SACRAL SCARRING. PT ALSO HAD WOUND TO RT 3RD TOE, PRESENT ON ADMISSION WHICH WAS DEBRIDED BY DR SCHOFIELD. DEFER TO [facility] FOR FOOT WOUND ORDERS. ALL SKIN PROTECTION MEASURES IN PLACE. WILL SEE PRN. HUTTON IN AGREEMENT WITH PLAN OF CARE. Addendum: 09/15/17 at 1126 by ЮЛИЯ RICARDO WNDNU Amended: Links added.
[2017-09-15] MEDS: MAG HYDROX/AL HYDROX/SIMETH 30 ML UDC PO PRN ×2 (11:26→21:57)
--- NOTE | 2017-09-15 11:33 | NUR ---
RN NOTES WOUND DEBRIDEMENT OF RIGHT 3RD TOE DONE BT DR SCHOFIELD. DRESSING INTACT, DRY WITH NO ACTIVE BLEEDING NOTED. WILL CONTINUE TO MONITOR
[2017-09-15] MEDS: IPRATROPIUM NEB FS 0.5 MG/2.5 ML AMPUL.NEB NEB PRN ×2 (14:27→18:12)
[2017-09-15] MEDS: ALBUTEROL FS 2.5 MG/3 ML VIAL.NEB NEB PRN ×2 (14:28→18:12)
--- NOTE | 2017-09-15 18:10 | NUR ---
Patient resides at [facility] [phone], he is chair/bed bound most of the time. He requires max assist with adl's. His conservator are Mariana Louis/ Yancy Holliday- conservator [phone]. Current plan is to return to SNF once discharge. Addendum: 09/15/17 at 1810 by AMILCAR ESTRADA RN Amended: Links added.
--- NOTE | 2017-09-15 19:30 | NUR ---
MS RN OPENING NOTES RECEIVED PATIENT RESTING IN BED, NO C/O PAIN, NO SOB, NO DIZZINESS, NO ACUTE CHANGES NOTED. A & O X 2-3 WITH FORGETFULNESS DUE TO HX OF DEMENTIA/ALZHEIMER. RESP EVEN & NONLABORED. AMBULATORY WITH WALKER. IV ACCESS TO RAC, INTACT PATENT, RUNNING WITH NS @ 75 ML/HR. ON CARDIAC DIET. SAFETY MEASURES IN PLACE. BED IN LOW LOCKED POSITION. CALL LIGHT WITHIN REACH. WILL CONTINUE TO MONITOR FOR SAFETY & COMFORT.
--- NOTE | 2017-09-15 19:49 | NUR ---
MS RN OPENING NOTES PATIENT AWAKE AND RESTING COMFORTABLY AT MODERATE HIGH BACKREST. A/O X 3, VERBALLY RESPONSIVE, NO C/O PAIN VOICED. ON ROOM AIR, BREATHING EVEN AND UNLABORED. BACK BRACE IN PLACED, AMBULATORY WITH WALKER AND SUPERVISION. IV ACCESS ON RAC INTACT AND PATENT WITH IVF OF NS @ 100ML/HR RUNNING WELL, NO SIGNS OF INFILTRATION NOTED. KEPT BED IN LO/LOCKED POSITION. CALL LIGHT WITHIN REACH. ALL NEEDS AND CARE ATTENDED WELL. ENDORSED TO COOLER WORKER NURSE FOR KARYN. .
--- NOTE | 2017-09-15 20:27 | NUR ---
PRN NORCO GIVEN PATIENT C/O GENERALIZED BODY ACHE, 03/25 & ASKED TO TAKE NORCO ONLY. PRN NORCO GIVEN. WILL MONITOR FOR EFFECTIVENESS.
[2017-09-15] MEDS: QUETIAPINE FUMARATE 25 MG TABLET PO SCH (21:50)
[2017-09-15] MEDS: SENNOSIDES 8.6 MG TABLET PO SCH (21:50)
[2017-09-15] MEDS: TAMSULOSIN 0.4 MG CAP.SR.24H PO SCH (21:50)
--- NOTE | 2017-09-15 21:57 | NUR ---
PRN MAALOX GIVEN PATIENT C/O STOMACH UPSET & ASKED TO TAKE MAALOX, PRN MAALOX GIVEN. WILL MONITOR CLOSELY.
--- NOTE | 2017-09-16 04:30 | NUR ---
REFUSED ADL CARE PATIENT NOTED WITH DIRTY PANTS, CLASSIFIED ADVERTISING SUPERVISOR & RN APPROACHED THE PT MULTIPLE TIMES BUT HE REFUSED TO CHANGE. GOT AGITATED USING BAD WORDS TOWARDS NURSES. STATED TO LEAVE HIM ALONE & HE WILL PLAN ON CHANGING HIS CLOTHES LATER.
[2017-09-16 06:27] LABS: BASOPHILS % (AUTO) 0.5 % (0.0-2.0); EOSINOPHILS # (AUTO) 0.5 /CMM (0.0-0.7); EOSINOPHILS % (AUTO) 7.1 % (0.0-6.0); HEMATOCRIT 36 % (39-51); HEMOGLOBIN 11.6 g/dL (13.5-17.5); LYMPHOCYTES # (AUTO) 1.2 /CMM (0.8-4.8); LYMPHOCYTES % (AUTO) 18.2 % (20.0-44.0); MEAN CORPUSCULAR HEMOGLOBIN 26 PG (26.0-33.0); MEAN CORPUSCULAR HGB CONC 32 g/dl (31.0-36.0); MEAN CORPUSCULAR VOLUME 80 fL (80-96); MONOCYTES # (AUTO) 0.4 /CMM (0.1-1.30); MONOCYTES % (AUTO) 6.3 % (2.0-12.0); NEUTROPHILS # (AUTO) 4.4 /CMM (1.8-8.9); NEUTROPHILS % (AUTO) 67.9 % (43.0-81.0); PLATELET COUNT (AUTO) 208 /CMM (150-450); RDW COEFFICIENT OF VARIATION 16.2 (11.5-15.0); RED BLOOD CELL COUNT(AUTO) 4.49 MIL/uL (4.5-6.0); WHITE BLOOD COUNT (AUTO) 6.5 K/uL (4.3-11.0)
[2017-09-16 06:38] LABS: CALCIUM, SERUM 8.9 mg/dL (8.5-10.1); CARBON DIOXIDE 24 mmol/L (21-32); CHLORIDE 101 mmol/L (98-107); GLUCOSE 92 mg/dL (74-106); MAGNESIUM 1.9 mg/dL (1.8-2.4); POTASSIUM 4.2 mmol/L (3.5-5.1); SODIUM SERUM 133 mmol/L (136-145); UREA NITROGEN, BLOOD 25 mg/dL (7-18)
--- NOTE | 2017-09-16 06:41 | NUR ---
MS RN CLOSING NOTES PATIENT SLEPT WELL @ NIGHT, HAD C/O PAIN X 1, PRN PAIN MED GIVEN, NO SOB, NO DIZZINESS, NO ACUTE CHANGES NOTED. A & O X 2-3 WITH FORGETFULNESS DUE TO HX OF DEMENTIA/ALZHEIMER. S/P RIGHT 3RD TOE DEBRIDEMENT ON 09/15/17. AMBULATORY WITH WALKER. IV ACCESS TO RFA, INTACT PATENT, RUNNING WITH NS @ 75 ML/HR. SAFETY MEASURES IN PLACE. BED IN LOW LOCKED POSITION. CALL LIGHT WITHIN REACH. WILL CONTINUE TO MONITOR FOR SAFETY & COMFORT.
--- NOTE | 2017-09-16 07:33 | NUR ---
RN OPENING NOTES RECEIVED PATIENT RESTING COMFORTABLE IN BED. AOX3. SATURATING ADEQUATELY ON RA. COMPLAINING OF GENERALIZED PAIN /. DENIES CP OR SOB. IV ACCESS ON THE RFA 22G PATENT AND INTACT WITH NS RUNNING AT 100MLS/HR. RESPIRATIONS EVEN AND UNLABORED. NO ACUTE DISTRESS NOTED. BACK BRACE IN PLACE. BED LOCKED IN THE LOWEST POSITION WITH SIDERAILS UP X2. CALL LIGHT WITHIN REACH. WILL CONTINUE TO MONITOR, ASSESS AND EDUCATE PATIENT THROUGHOUT SHIFT.
[2017-09-16 08:00] VITALS: BP 121/64
[2017-09-16] MEDS: MULTIVIT, IRON, MIN NO. 8, FA 1 TAB PO SCH (08:37)
[2017-09-16] MEDS: GABAPENTIN 300 MG CAPSULE PO SCH ×3 (08:37→17:16)
[2017-09-16] MEDS: DOCUSATE SODIUM 100 MG CAPSULE PO SCH ×2 (08:37→17:16)
[2017-09-16] MEDS: BENZTROPINE MESYLATE (1 MG) 1 MG TABLET PO SCH ×3 (08:38→17:16)
[2017-09-16] MEDS: FERROUS SULFATE (325 MG) 325 MG/TAB TABLET PO SCH ×2 (08:38→17:17)
[2017-09-16] MEDS: PROSOURCE / PROSTAT (PYXIS) 30 ML UDC PO SCH (08:38)
[2017-09-16] MEDS ORDERED: IV NS 0.9% 1,000 ML BAG IV SCH (09:00)
[2017-09-16] MEDS: MAG HYDROX/AL HYDROX/SIMETH 30 ML UDC PO PRN ×2 (15:29→22:29)
[2017-09-16 16:00] VITALS: BP 149/89
--- NOTE | 2017-09-16 19:00 | NUR ---
RN NOTES RECEIVED PT IN BED RESTING COMFORTABLY. A/O X 3, PT IN STABLE CONDITION, NO S/S OF DISTRESS. NO COMPLAINS OF PAIN AT THIS TIME. SAFETY MEASURES ARE IN PLACE, CALL LIGHT IS IN REACH. WILL CONTINUE TO MONITOR.
--- NOTE | 2017-09-16 19:30 | NUR ---
RN CLOSING NOTES PATIENT IS RESTING COMFORTABLE IN BED. AOX3. DENIES SOB OR CP. COMPLAINING OF GENERALIZED PAIN. RESPIRATIONS EVEN AND UNLABORED. ALL DISCHARGE INSTRUCTIONS GIVEN. EXITCARE PROVIDED. PATIENT REFUSED FROM [facility]. AWAITING PLACEMENT. IV RFA 22G PATENT AND INTACT. NS RUNNING 100 ML/HR. BED LOCKED IN THE LOWEST POSITION. ALL NEEDS MET. ALL MEDS GIVEN APPROPRIATE. WILL ENDORSE TO NIGHT RN FOR KARYN.
[2017-09-16 20:00] VITALS: BP 144/80
[2017-09-16 20:56] VITALS: BP 144/80
[2017-09-16] MEDS: TAMSULOSIN 0.4 MG CAP.SR.24H PO SCH (21:01)
[2017-09-16] MEDS: QUETIAPINE FUMARATE 25 MG TABLET PO SCH (21:01)
[2017-09-16] MEDS: SENNOSIDES 8.6 MG TABLET PO SCH (21:02)
--- NOTE | 2017-09-17 06:26 | NUR ---
MS RN CLOSING NOTES IN BED ASLEEP AND EASILY AWAKEN, HOB ELEVATED, TOLERATING ROOM AIR 98% RESPIRATIONS EVEN AND UNLABORED. AFEBRILE, IN STABLE CONDITION. NOT IN S/S DISTRESS. ALL NURSING CARE RENDERED. NEEDS ATTENDED AND ANTICIPATED, KEPT CLEAN AND DRY AND COMFORTABLE, NO COMPLAINS OF PAIN AT THIS TIME. GOOD SKIN CARE PROVIDED. FREQUENT VISUAL CHECK DONE FOR SAFETY EVERY 2 HOURS. ON LOW BED AT ALL TIMES TO ENSURE SAFETY. SAFE HAZARD FREE ENVIRONMENT PROVIDED. CALL LIGHT WITHIN EASY TO REACH. WILL ENDORSE NEXT SHIFT CONTINUITY OF CARE.
--- NOTE | 2017-09-17 07:41 | NUR ---
RN OPENING NOTES RECEIVED PATIENT RESTING COMFORTABLE IN BED. AOX3. SATURATING ADEQUATELY ON RA. COMPLAINING OF GENERALIZED PAIN /. DENIES CP OR SOB. IV ACCESS ON THE RFA 22G PATENT AND INTACT. RESPIRATIONS EVEN AND UNLABORED. AWAITING PLACEMENT TO SNF. ALL D/C PAPERWORK COMPLETED. NO ACUTE DISTRESS NOTED. BACK BRACE IN PLACE. BED LOCKED IN THE LOWEST POSITION WITH SIDERAILS UP X2. CALL LIGHT WITHIN REACH. WILL CONTINUE TO MONITOR, ASSESS AND EDUCATE PATIENT THROUGHOUT SHIFT.
[2017-09-17 08:00] VITALS: BP 146/72
[2017-09-17] MEDS: MULTIVIT, IRON, MIN NO. 8, FA 1 TAB PO SCH (08:49)
[2017-09-17] MEDS: DOCUSATE SODIUM 100 MG CAPSULE PO SCH ×2 (08:49→18:21)
[2017-09-17] MEDS: GABAPENTIN 300 MG CAPSULE PO SCH ×3 (08:50→18:21)
[2017-09-17] MEDS: FERROUS SULFATE (325 MG) 325 MG/TAB TABLET PO SCH ×2 (08:50→18:21)
[2017-09-17] MEDS: LOSARTAN POTASSIUM 50 MG TABLET PO SCH ×2 (08:51→21:00)
[2017-09-17] MEDS: BENZTROPINE MESYLATE (1 MG) 1 MG TABLET PO SCH ×3 (08:52→18:21)
[2017-09-17] MEDS: PROSOURCE / PROSTAT (PYXIS) 30 ML UDC PO SCH (08:57)
[2017-09-17] MEDS: IPRATROPIUM NEB FS 0.5 MG/2.5 ML AMPUL.NEB NEB PRN ×3 (10:18→20:17)
[2017-09-17] MEDS: ALBUTEROL FS 2.5 MG/3 ML VIAL.NEB NEB PRN ×3 (10:18→20:17)
[2017-09-17 16:00] VITALS: BP 159/75
--- NOTE | 2017-09-17 19:17 | NUR ---
RN CLOSING NOTES PATIENT IS RESTING COMFORTABLE IN BED. AOX2/3. DENIES SOB OR CP. COMPLAINING OF GENERALIZED PAIN. RESPIRATIONS EVEN AND UNLABORED. ALL DISCHARGE INSTRUCTIONS GIVEN. EXITCARE PROVIDED. PATIENT REFUSED FROM [facility]. AWAITING PLACEMENT. IV RFA 22G PATENT AND INTACT. BED LOCKED IN THE LOWEST POSITION. CALL LIGHT WITHIN REACH. ALL NEEDS MET. ALL MEDS GIVEN APPROPRIATE. WILL ENDORSE TO NIGHT RN FOR KARYN.
--- NOTE | 2017-09-17 19:30 | NUR ---
Received patient sitting at edge of bed with a walker next to him.No unusual signs or symptoms observed or reported,no signs of discomfort or distress.Vital signs taken all are in the normal range except for BP 102/52.Held BP medication.
[2017-09-17 19:59] VITALS: BP 151/78
[2017-09-17] MEDS: HYDROCODONE/APAP 5/325MG 1 EACH TABLET PO PRN (20:40)
[2017-09-17] MEDS: SENNOSIDES 8.6 MG TABLET PO SCH (21:27)
[2017-09-17] MEDS: TAMSULOSIN 0.4 MG CAP.SR.24H PO SCH (21:27)
[2017-09-17] MEDS: QUETIAPINE FUMARATE 25 MG TABLET PO SCH (21:30)
--- NOTE | 2017-09-17 22:10 | NUR ---
Patient correct BP is 151/78
[2017-09-17 23:10] VITALS: BP 139/75
--- NOTE | 2017-09-18 05:10 | NUR ---
Offered patient a sandwich and milk he accepted,consumed all-no problems.
--- NOTE | 2017-09-18 07:39 | NUR ---
MS RN OPENING NOTE PATIENT IS ALERT AND ORIENTED x3. NO PAIN AT THIS TIME. NO SOB OR DISTRESS NOTED. CALL LIGHT WITHIN REACH. SAFETY MEASURES IMPLEMENTED. ABLE TO COMMUNICATE NEEDS. USES URINAL OR WALKS TO RESTROOM. AMBULATORY WITH WALKER, STANDBY ASSISTANCE. CARDIAC DIET AND TOLERATING WELL. LEFT ARM IV INTACT AND PATENT NO REDNESS OR SWELLING NOTED. NO LABS THIS MORNING. PATIENT CURRENTLY WEARING OWN BACK-BRACE AT THIS TIMEWILL CONTINUE TO MONITOR THROUGHOUT SHIFT.
[2017-09-18 08:00] VITALS: BP 135/65
[2017-09-18] MEDS: FERROUS SULFATE (325 MG) 325 MG/TAB TABLET PO SCH ×2 (08:47→16:11)
[2017-09-18] MEDS: DOCUSATE SODIUM 100 MG CAPSULE PO SCH ×2 (08:47→16:10)
[2017-09-18] MEDS: GABAPENTIN 300 MG CAPSULE PO SCH ×3 (08:47→16:11)
[2017-09-18] MEDS: MULTIVIT, IRON, MIN NO. 8, FA 1 TAB PO SCH (08:47)
[2017-09-18] MEDS: BENZTROPINE MESYLATE (1 MG) 1 MG TABLET PO SCH ×3 (08:47→16:11)
[2017-09-18] MEDS: LOSARTAN POTASSIUM 50 MG TABLET PO SCH (08:48)
[2017-09-18] MEDS: PROSOURCE / PROSTAT (PYXIS) 30 ML UDC PO SCH (08:48)
--- NOTE | 2017-09-18 14:35 | NUR ---
MS RN NOTE GAVE REPORT TO MICHELA ROCKWELL CASING MIXER AT [facility]. SHELL FREEZING MACHINE OPERATOR TIME AT 4 PM.
[2017-09-18 16:00] VITALS: BP 131/80
--- NOTE | 2017-09-18 17:05 | NUR ---
MS TERRAZZO WORKER APPRENTICE NOTE PATIENT IS ALERT AND ORIENTED x3. NO PAIN AT THIS TIME. NO SOB OR DISTRESS. CALL LIGHT WITHIN REACH AT ALL TIMES. SAFETY MEASURES IMPLEMENTED AT ALL TIMES. ALL DUE MEDICATIONS GIVEN ORDERED. ALL DISCHARGE INSTRUCTIONS GIVEN TO MOIZ [facility]. ALL BELONGINGS WITH PATIENT UPON DISCHARGE. LEFT VIA AMBULANCE WITH TWO EMT
== END 2017-09-18 17:00 | DRG 264 ==
LOC: ER 16:14 → TELE 18:14 → MED 09-15 08:04
PROVIDERS: ADMIT Family Medicine; ATTEND Family Medicine
PROC: 0JBQ0ZZ Excision of Right Foot Subcutaneous Tissue and Fascia, Open Approach (ICD-10-PCS; principal; 2017-09-15)
DX: I48.91 Unspecified atrial fibrillation (principal); N17.0 Acute kidney failure with tubular necrosis; D63.8 Anemia in other chronic diseases classified elsewhere; C34.90 Malignant neoplasm of unspecified part of unspecified bronchus or lung; E88.09 Other disorders of plasma-protein metabolism, not elsewhere classified; E44.1 Mild protein-calorie malnutrition; E87.1 Hypo-osmolality and hyponatremia; J44.9 Chronic obstructive pulmonary disease, unspecified; F23 Brief psychotic disorder; F25.9 Schizoaffective disorder, unspecified; F17.210 Nicotine dependence, cigarettes, uncomplicated; D50.9 Iron deficiency anemia, unspecified; G30.9 Alzheimer's disease, unspecified; F02.80 Dementia in other diseases classified elsewhere, unspecified severity, without behavioral disturbance, psychotic disturbance, mood disturbance, and anxiety; I48.92 Unspecified atrial flutter; S90.414A Abrasion, right lesser toe(s), initial encounter; E78.5 Hyperlipidemia, unspecified; F32.9 Major depressive disorder, single episode, unspecified; I10 Essential (primary) hypertension; K21.9 Gastro-esophageal reflux disease without esophagitis; Z86.73 Personal history of transient ischemic attack (TIA), and cerebral infarction without residual deficits; Z82.3 Family history of stroke; R73.9 Hyperglycemia, unspecified; K80.20 Calculus of gallbladder without cholecystitis without obstruction; N40.0 Benign prostatic hyperplasia without lower urinary tract symptoms; R74.8 Abnormal levels of other serum enzymes; M20.42 Other hammer toe(s) (acquired), left foot; M20.41 Other hammer toe(s) (acquired), right foot; M21.611 Bunion of right foot; L85.9 Epidermal thickening, unspecified; X58.XXXA Exposure to other specified factors, initial encounter; Y93.9 Activity, unspecified; Y92.129 Unspecified place in nursing home as the place of occurrence of the external cause; L84 Corns and callosities; L98.8 Other specified disorders of the skin and subcutaneous tissue; S70.312A Abrasion, left thigh, initial encounter; S70.311A Abrasion, right thigh, initial encounter; F43.10 Post-traumatic stress disorder, unspecified; Z96.653 Presence of artificial knee joint, bilateral; Z79.899 Other long term (current) drug therapy; Z68.20 Body mass index [BMI] 20.0-20.9, adult
CPT/HCPCS: 36415; 71010-TC; 76700-TC; 80048-TC; 80061-TC; 80076-TC; 83735-TC; 84100-TC; 84484-TC; 85025-TC; 85730-TC; 87081-TC; A4606; A6403; J7030; Z7610

== ENCOUNTER 2018-04-30 22:47 | Inpatient (IN) | payer MEDICARE, MEDICAID ==
[~2018-04-30] VITALS: Ht 182.9 cm; Wt 68.6 kg
[~2018-04-30 22:47] MED LIST changes: -ALBU2.5V13 NEB; +AMIN30LI4 PO; +BENZ0.5T43 PO; +DOCU-141 PO; -EZET10TA PO; +EZET10TA14 PO; +FERR325T28 PO; +GABA-534 PO; +HALO5TAB PO; -HYDR-3326 PO; +HYDR-3974 PO; -IPRA0.2S49 NEB; +IPRA3AMP23 IH; +NA P133E RC; -NICO1PAT28 TD; +QUET25TA PO; +SENN-167 PO; -SENN8.6T6 PO; +ZOLP5TAB2 PO
--- NOTE | 2018-04-30 23:05 | NUR ---
DR GEE AT BEDSIDE FOR EXAM.
--- NOTE | 2018-04-30 23:09 | NUR ---
Patient bib ra from snf, with chief complaint fever, 100.3 rectally here in ER. Patient was given tylenol 650mg at skilled nursing property officer. Patient is lethargic, eyes closed. Patient arousable to name and touch, but goes back to sleep after answering one to two questions. No sob. Not in distress. vss. pending md tapia
[2018-04-30] MEDS ORDERED: ACETAMINOPHEN 650 MG/SUPP.RECT RC ONE ×2 (23:18→23:30)
[2018-04-30] MEDS ORDERED: PIPERACILLIN /TAZOBACTAM 3.375 G VIAL IV ONE (23:18)
--- NOTE | 2018-04-30 23:25 | NUR ---
patient medicated as ordered
[2018-04-30 23:29] LABS: BASOPHILS % (AUTO) 0.1 % (0.0-2.0); EOSINOPHILS % (AUTO) 0.1 % (0.0-6.0); HEMATOCRIT 32 % (39-51); HEMOGLOBIN 10.8 g/dL (13.5-17.5); LYMPHOCYTES % (AUTO) 9.3 % (20.0-44.0); MEAN CORPUSCULAR HEMOGLOBIN 28 PG (26.0-33.0); MEAN CORPUSCULAR HGB CONC 33 g/dl (31.0-36.0); MEAN CORPUSCULAR VOLUME 83 fL (80-96); MONOCYTES % (AUTO) 11.9 % (2.0-12.0); NEUTROPHILS % (AUTO) 78.6 % (43.0-81.0); PLATELET COUNT (AUTO) 162 /CMM (150-450); RDW COEFFICIENT OF VARIATION 15.7 (11.5-15.0); WHITE BLOOD COUNT (AUTO) 5.4 K/uL (4.3-11.0)
[2018-04-30] MEDS ORDERED: IV NS 0.9% 1,000 ML BAG IV ONE ×2 (23:30)
[2018-04-30] MEDS ORDERED: PIPERACILLIN /TAZOBACTAM 3.375 G in IV D5W 50 ML IV ONE (23:30)
[2018-04-30 23:49] LABS: APPEARANCE,URINE SL CLOUDY (CLEAR); BILIRUBIN,URINE NEGATIVE (NEGATIVE); BLOOD, URINE NEGATIVE Ery/uL (NEGATIVE); COLOR,URINE YELLOW (YELLOW); KETONES,URINE NEGATIVE (NEGATIVE); LEUKOCYTE ESTERASE ,URINE NEGATIVE (NEGATIVE); NITRITE, URINE NEGATIVE (NEGATIVE); PROTEIN,URINE TRACE mg/dl (NEGATIVE); UGLUCOSE NEGATIVE (NEGATIVE); UROBILINOGEN,URINE 0.2 EU/dL (0.2)
[2018-04-30 23:51] LABS: BACTERIA,URINE Few /HPF (None Seen); RBC,URINE 0-2 /HPF (0-2); SQUAMOUS EPITHELIAL CELL,UR Few /HPF (None Seen); WBC,URINE 0-2 /HPF (0-3)
[2018-04-30 23:56] LABS: TROPONIN I 0.071 ng/mL (0.00-0.056)
[2018-04-30 23:58] LABS: INR 0.99 (0.87-1.13)
[2018-05-01 00:04] LABS: CALCIUM, SERUM 8.5 mg/dL (8.5-10.1); CARBON DIOXIDE 23 mmol/L (21-32); CHLORIDE 100 mmol/L (98-107); GLUCOSE 123 mg/dL (74-106); POTASSIUM 3.9 mmol/L (3.5-5.1); SODIUM SERUM 133 mmol/L (136-145); UREA NITROGEN, BLOOD 32 mg/dL (7-18)
[2018-05-01 00:14] LABS: ALANINE AMINOTRANSFERASE 32 U/L (12-78); ALBUMIN 2.6 g/dL (3.4-5.0); ALKALINE PHOSPHATASE 121 U/L (46-116); ASPARTATE AMINOTRANSFERASE 33 U/L (15-37); BILIRUBIN,DIRECT 0.1 mg/dL (0.0-0.2); BILIRUBIN,TOTAL 0.4 mg/dL (0.2-1.0); TOTAL PROTEIN, SERUM 5.9 g/dL (6.4-8.2)
--- NOTE | 2018-05-01 00:15 | NUR ---
tele [phone]
[2018-05-01] MEDS ORDERED: MORPHINE SULFATE INJ 2 MG/ML DISP.SYRIN IV PRN (01:00)
[2018-05-01] MEDS ORDERED: ONDANSETRON HCL/PF 4 MG/2 ML VIAL IVP PRN (01:00)
[2018-05-01] MEDS ORDERED: ZOLPIDEM TARTRATE 5 MG TABLET PO PRN (01:00)
[2018-05-01] MEDS ORDERED: NA PHOS,M-B/NA PHOS,DI-BA 1 EA ENEMA RC PRN (01:00)
[2018-05-01] MEDS ORDERED: ACETAMINOPHEN 325 MG TABLET PO PRN ×2 (01:00)
[2018-05-01] MEDS ORDERED: MAGNESIUM HYDROXIDE 30 ML UDC PO PRN (01:00)
[2018-05-01] MEDS ORDERED: Z GUARD REMEDY 2 OZ OINT TP PRN (01:00)
[2018-05-01] MEDS ORDERED: BISACODYL SUPP (10 MG) 10 MG/SUPP.RECT SUPP.RECT RC PRN (01:00)
[2018-05-01] MEDS ORDERED: MAG HYDROX/AL HYDROX/SIMETH 30 ML UDC PO PRN (01:00)
[2018-05-01 01:05] VITALS: BP 130/72
--- NOTE | 2018-05-01 01:20 | NUR ---
TRAUMA NURSE - ADMISSION NOTES Report received from LICHA Bond RN. Patient received in a stretcher from ER @0100 am. Patient came from [facility], transferred to [facility] ER for fever and chills. Current vital signs: BP 130/72 P94 T97.6F R18 Os 95%. Patient appeared to be sleepy, unable to provide information when asked. A/O x1 to self only. Obtained history from ER and SNF H&P. Skin body assessment done. Dr. Marcelino Yang aware of transfer to tele from ER. Admitting orders in place. IV on right AC 20g: patent and intact. Started on levaquin. Safety measures in place. Bed in lowest position with bed alarm on and call light within reach. Will continue to monitor patient for fever and any changes in condition Addendum: 05/01/18 at 0553 by TAYLOR ARANA RN TELE monitor shows Sinus Rhythm with PVC; HR 73
[2018-05-01] MEDS ORDERED: LEVOFLOXACIN 500 MG /D5W 100ML 100 ML IV ONE (02:41)
[2018-05-01] MEDS: LEVOFLOXACIN 500 MG /D5W 100ML 500 MG in PREMIX 1 EA IV SCH (02:44)
--- NOTE | 2018-05-01 03:51 | NUR ---
HAIR MACHINE OPERATOR - NON-ADMIN NOTES Xavi non-admin - duplicate
[2018-05-01 04:00] VITALS: BP 121/64
--- NOTE | 2018-05-01 05:30 | NUR ---
EAR MUFF ASSEMBLER CLOSING NOTES Patient remained in bed, sleeping comfortably, easily aroused. Verbally responsive. Not in any type of distress. No episode of elevated temperature noted. Current temp is 97.8 Axillary. Blood drawn by laborer vegetable farm. IV on right AC 20g: patent and intact. Safety measures in place. Bed in lowest position with bed alarm on and call light within reach. Will endorse to oncoming shift nurse. Addendum: 05/01/18 at 0555 by TAYLOR ARANA RN Tele monitor shows SR with PVCs; HR 77 Addendum: 05/01/18 at 0556 by TAYLOR ARANA RN BP 121/64 P 88 R18 T97.8 O295% RA
[2018-05-01 06:48] LABS: CHOLESTEROL 77 mg/dL (<200); HDL CHOLESTEROL 43 mg/dL (40-60); LDL 31 mg/dL (0-99); THYROID STIMULATING HORMONE 1.945 uIU/mL (0.358-3.74); TRIGLYCERIDES 35 mg/dL (30-150)
[2018-05-01 06:51] LABS: ALANINE AMINOTRANSFERASE 26 U/L (12-78); ALBUMIN 2.4 g/dL (3.4-5.0); ALKALINE PHOSPHATASE 114 U/L (46-116); ASPARTATE AMINOTRANSFERASE 30 U/L (15-37); B-TYPE NATRIURETIC PEPTIDE 469 PG/ML (0-125); BILIRUBIN,TOTAL 0.4 mg/dL (0.2-1.0); CARBON DIOXIDE 23 mmol/L (21-32); CHLORIDE 105 mmol/L (98-107); GLUCOSE 92 mg/dL (74-106); MAGNESIUM 1.6 mg/dL (1.8-2.4); PHOSPHORUS 2.7 mg/dL (2.5-4.9); POTASSIUM 3.5 mmol/L (3.5-5.1); SODIUM SERUM 136 mmol/L (136-145); TOTAL PROTEIN, SERUM 5.6 g/dL (6.4-8.2); UREA NITROGEN, BLOOD 24 mg/dL (7-18)
[2018-05-01 06:53] LABS: BASOPHILS % (AUTO) 0.1 % (0.0-2.0); EOSINOPHILS % (AUTO) 2.3 % (0.0-6.0); HEMATOCRIT 31 % (39-51); HEMOGLOBIN 10.8 g/dL (13.5-17.5); LYMPHOCYTES # (AUTO) 0.6 /CMM (0.8-4.8); LYMPHOCYTES % (AUTO) 13.2 % (20.0-44.0); MEAN CORPUSCULAR HEMOGLOBIN 28 PG (26.0-33.0); MEAN CORPUSCULAR HGB CONC 34 g/dl (31.0-36.0); MEAN CORPUSCULAR VOLUME 81 fL (80-96); MONOCYTES # (AUTO) 0.7 /CMM (0.1-1.30); MONOCYTES % (AUTO) 13.9 % (2.0-12.0); NEUTROPHILS # (AUTO) 3.5 /CMM (1.8-8.9); NEUTROPHILS % (AUTO) 70.5 % (43.0-81.0); PLATELET COUNT (AUTO) 132 /CMM (150-450); RDW COEFFICIENT OF VARIATION 14.4 (11.5-15.0); RED BLOOD CELL COUNT(AUTO) 3.86 MIL/uL (4.5-6.0); WHITE BLOOD COUNT (AUTO) 4.9 K/uL (4.3-11.0)
[2018-05-01 06:54] LABS: TROPONIN I 0.044 ng/mL (0.00-0.056)
[2018-05-01 07:28] LABS: IRON, SERUM 10 ug/dl (50-175); TOTAL IRON BINDING CAPACITY 194 ug/dl (250-450)
[2018-05-01] MEDS: PANTOPRAZOLE 40 MG TABLET.DR PO SCH (07:30)
--- NOTE | 2018-05-01 07:40 | NUR ---
RN NOTES PATIENT RECEIVED AWAKE ALERT AND VERBALLY RESPONSIVE CONFUSED ABLE TO MAKE NEEDS KNOWN. RESPIRATIONS EVEN AND UNLABORED. IV ACCESS PATENT AND INTACT NO REDNESS OR INFILTRATION NOTED. IN NO APPARENT PAIN OR DISCOMFORT. KEPT CLEAN DRY AND COMFORTABLE CALL LIGHT WITHIN EASY REACH WILL CONTINUE TO MONITOR
[2018-05-01 08:00] VITALS: BP 124/62
[2018-05-01] MEDS ORDERED: FERROUS SULFATE (325 MG) 325 MG/TAB TABLET PO SCH (09:00)
[2018-05-01] MEDS: Magnesium 1GM/D5W 100ML PREMIX 100 ML IV SCH ×2 (09:03→11:24)
[2018-05-01] MEDS: BENZTROPINE MESYLATE (1 MG) 1 MG TABLET PO SCH ×3 (09:05→17:16)
[2018-05-01] MEDS: HALOPERIDOL 5 MG TABLET PO SCH ×3 (09:05→17:16)
[2018-05-01] MEDS: DOCUSATE SODIUM 100 MG CAPSULE PO SCH ×2 (09:07→17:16)
[2018-05-01] MEDS: MULTIVIT, IRON, MIN NO. 8, FA 1 TAB PO SCH (09:08)
[2018-05-01] MEDS: GABAPENTIN 300 MG CAPSULE PO SCH ×3 (09:09→17:16)
[2018-05-01] MEDS: ASPIRIN EC 325 MG TABLET.DR PO SCH (09:09)
[2018-05-01] MEDS: PROSOURCE / PROSTAT (PYXIS) 30 ML UDC PO SCH (09:12)
[2018-05-01] MEDS: IV NS 0.9% 1,000 ML IV PRN (09:15)
[2018-05-01] MEDS: IPRATROPIUM NEB FS 0.5 MG/2.5 ML AMPUL.NEB NEB PRN ×2 (12:56→22:41)
[2018-05-01] MEDS: ALBUTEROL FS 2.5 MG/3 ML VIAL.NEB NEB PRN ×2 (12:56→22:41)
[2018-05-01] MEDS: SOD FERRIC GLUC 125 MG in IV NS 0.9% 100 ML IV SCH (13:51)
[2018-05-01 16:00] VITALS: BP 140/89
--- NOTE | 2018-05-01 19:00 | NUR ---
RN NOTES PT NOTED WITH TEMP 101.2 TYLENOL AND COOLING MEASURES PROVIDED WILL ENDORSE TO NEXT SHIFT FOR CONTINUITY OF CARE
--- NOTE | 2018-05-01 19:40 | NUR ---
RN NOTES PATIENT RAWAKE ALERT AND VERBALLY RESPONSIVE CONFUSED ABLE TO MAKE NEEDS KNOWN. RESPIRATIONS EVEN AND UNLABORED. IV ACCESS PATENT AND INTACT NO REDNESS OR INFILTRATION NOTED. IN NO APPARENT PAIN OR DISCOMFORT. KEPT CLEAN DRY AND COMFORTABLE CALL LIGHT WITHIN EASY REACH ENDORSED TO NEXT SHIFT FOR CONTINUE TO MONITOR
[2018-05-01 20:00] VITALS: BP 137/68
--- NOTE | 2018-05-01 20:00 | NUR ---
MS RN NOTE: PATIENT TRANSFERRED TO MS2 TO ROOM 207-2 WITH ALL BELONGINGS. PATIENT RESTING IN BED, NO ACUTE DISTRESS NOTED. BREATHING EVEN AND UNLABORED, NO SOB NOTED. IV TO RAC IN PLACE, INFUSING NS AT 125 ML/HR. BED LOCKED AND IN LOWEST POSITION, CALL LIGHT IN REACH. WILL CONTINUE.
[2018-05-01] MEDS ORDERED: EZETIMIBE 10 MG TABLET PO SCH (22:00)
[2018-05-01] MEDS: QUETIAPINE FUMARATE 100 MG TABLET PO SCH (22:02)
[2018-05-01] MEDS: TAMSULOSIN 0.4 MG CAP.SR.24H PO SCH (22:02)
[2018-05-01] MEDS: SENNOSIDES 8.6 MG TABLET PO SCH (22:02)
--- NOTE | 2018-05-01 22:45 | NUR ---
MS RN NOTE: PATIENT COMPLAINS OF SHORTNESS OF BREATH, REQUESTING FOR BREATHING TREATMENT. RT CALLED FOR PRN BREATHING TREATMENT. WILL CONTINUE TO MONITOR.
[2018-05-02] MEDS: LEVOFLOXACIN 500 MG /D5W 100ML 500 MG in PREMIX 1 EA IV SCH (01:02)
--- NOTE | 2018-05-02 06:20 | NUR ---
MS RN NOTE: PATIENT RESTING IN BED, NO ACUTE DISTRESS NOTED. BREATHING EVEN AND UNLABORED, NO SOB NOTED. IV TO RAC IN PLACE, INFUSING NS AT 125 ML/HR. BED LOCKED AND IN LOWEST POSITION, CALL LIGHT IN REACH. WILL ENDORSE TO DAY NURSE TO CONTINUE WITH PLAN OF CARE.
[2018-05-02 06:22] LABS: BASOPHILS % (AUTO) 0.3 % (0.0-2.0); HEMATOCRIT 29 % (39-51); LYMPHOCYTES # (AUTO) 0.6 /CMM (0.8-4.8); LYMPHOCYTES % (AUTO) 13.1 % (20.0-44.0); MEAN CORPUSCULAR HEMOGLOBIN 28 PG (26.0-33.0); MEAN CORPUSCULAR HGB CONC 35 g/dl (31.0-36.0); MEAN CORPUSCULAR VOLUME 82 fL (80-96); MONOCYTES # (AUTO) 0.5 /CMM (0.1-1.30); MONOCYTES % (AUTO) 10.6 % (2.0-12.0); NEUTROPHILS # (AUTO) 3.6 /CMM (1.8-8.9); PLATELET COUNT (AUTO) 159 /CMM (150-450); RDW COEFFICIENT OF VARIATION 14.7 (11.5-15.0); RED BLOOD CELL COUNT(AUTO) 3.51 MIL/uL (4.5-6.0); WHITE BLOOD COUNT (AUTO) 4.9 K/uL (4.3-11.0)
--- NOTE | 2018-05-02 07:20 | NUR ---
RN NOTES PATIENT A/OX1-2, BREATHING EVEN AND UNLABORED, NO SOB NOTED, DENIES PAIN OR DISCOMFORT AT THIS TIME, PIV INFUSING ON RAC, NEEDS ATTENDED, CALL LIGHT WITHIN REACH, WILL CONTINUE TO MONITOR.
[2018-05-02 08:00] VITALS: BP 139/82
[2018-05-02] MEDS: BENZTROPINE MESYLATE (1 MG) 1 MG TABLET PO SCH ×3 (08:35→16:15)
[2018-05-02] MEDS: PANTOPRAZOLE 40 MG TABLET.DR PO SCH (08:35)
[2018-05-02] MEDS: GABAPENTIN 300 MG CAPSULE PO SCH ×3 (08:36→16:15)
[2018-05-02] MEDS: HALOPERIDOL 5 MG TABLET PO SCH ×3 (08:36→16:16)
[2018-05-02] MEDS: ASPIRIN EC 325 MG TABLET.DR PO SCH (08:36)
[2018-05-02] MEDS: DOCUSATE SODIUM 100 MG CAPSULE PO SCH ×2 (08:36→16:15)
[2018-05-02] MEDS: MULTIVIT, IRON, MIN NO. 8, FA 1 TAB PO SCH (08:37)
[2018-05-02] MEDS: PROSOURCE / PROSTAT (PYXIS) 30 ML UDC PO SCH (09:07)
[2018-05-02 09:39] LABS: ALANINE AMINOTRANSFERASE 35 U/L (12-78); ALBUMIN 2.3 g/dL (3.4-5.0); ALKALINE PHOSPHATASE 142 U/L (46-116); ASPARTATE AMINOTRANSFERASE 32 U/L (15-37); BILIRUBIN,TOTAL 0.3 mg/dL (0.2-1.0); CARBON DIOXIDE 23 mmol/L (21-32); CHLORIDE 104 mmol/L (98-107); CREATININE 0.8 mg/dL (0.6-1.3); GLUCOSE 84 mg/dL (74-106); MAGNESIUM 1.7 mg/dL (1.8-2.4); PHOSPHORUS 3.1 mg/dL (2.5-4.9); POTASSIUM 3.7 mmol/L (3.5-5.1); SODIUM SERUM 135 mmol/L (136-145); TOTAL PROTEIN, SERUM 5.6 g/dL (6.4-8.2); UREA NITROGEN, BLOOD 14 mg/dL (7-18)
[2018-05-02] MEDS: IV NS 0.9% 1,000 ML IV PRN (11:20)
[2018-05-02] MEDS: HYDROCODONE/APAP 5/325MG 1 EACH TABLET PO PRN (11:27)
[2018-05-02] MEDS: Magnesium 1GM/D5W 100ML PREMIX 100 ML IV SCH ×2 (12:48→14:18)
[2018-05-02] MEDS: SOD FERRIC GLUC 125 MG in IV NS 0.9% 100 ML IV SCH (15:51)
[2018-05-02 16:00] VITALS: BP 128/73
--- NOTE | 2018-05-02 19:09 | NUR ---
RN NOTES PATIENT IS A/OX1-2, WITH EPISODES OF CONFUSION, ON 2LPM VIA NC, NO SOB NOTED, DENIES PAIN OR DISCOMFORT, TURNED AND REPOSITIONED EVERY 2 HOURS, WOUND TREATMENT RENDERED, NEEDS ATTENDED AND MET, CALL LIGHT WITHIN REACH, WILL ENDORSE TO ASSISTANT COUNSEL FOR KARYN.
--- NOTE | 2018-05-02 19:30 | NUR ---
RN NOTES RECEIVED PATIENT IN BED AWAKE, AO X 2-3, ABLE TO MAKE NEEDS KNOWN. NO ACUTE DISTRESS NOTED. DENIES ANY PAIN AT THIS TIME. IV SITE PATENT, INTACT; IVF INFUSING ORDERED. SAFETY REMINDERS GIVEN. ON LOW BED WITH BILATERAL UPPER SIDE RAILS UP. CALL [place] WITHIN EASY REACH. WILL CONTINUE TO MONITOR.
[2018-05-02 20:00] VITALS: BP 144/78
[2018-05-02] MEDS: SENNOSIDES 8.6 MG TABLET PO SCH (21:30)
[2018-05-02] MEDS: TAMSULOSIN 0.4 MG CAP.SR.24H PO SCH (21:30)
[2018-05-02] MEDS: QUETIAPINE FUMARATE 100 MG TABLET PO SCH (21:30)
[2018-05-03] MEDS: LEVOFLOXACIN 500 MG /D5W 100ML 500 MG in PREMIX 1 EA IV SCH (00:49)
[2018-05-03] MEDS: IV NS 0.9% 1,000 ML IV PRN ×2 (04:53→14:50)
--- NOTE | 2018-05-03 06:23 | NUR ---
RN NOTES PATIENT ASLEEP, EASILY AROUSABLE. RESPIRATIONS EVEN. NO SIGNS OF PAIN NOTED. DUE MEDS GIVEN WITH NO ASE NOTED. NEEDS ATTENDED. KEPT CLEAN, DRY, AND COMFORTABLE. SAFETY PRECAUTIONS AND COMFORT MEASURES IN PLACE. WILL GIVE REPORT TO DAY SHIFT FOR CONTINUITY OF CARE.
[2018-05-03 06:24] LABS: BASOPHILS % (AUTO) 0.4 % (0.0-2.0); EOSINOPHILS % (AUTO) 7.6 % (0.0-6.0); HEMATOCRIT 32 % (39-51); HEMOGLOBIN 10.4 g/dL (13.5-17.5); LYMPHOCYTES # (AUTO) 0.7 /CMM (0.8-4.8); LYMPHOCYTES % (AUTO) 14.9 % (20.0-44.0); MEAN CORPUSCULAR HEMOGLOBIN 27 PG (26.0-33.0); MEAN CORPUSCULAR HGB CONC 33 g/dl (31.0-36.0); MEAN CORPUSCULAR VOLUME 84 fL (80-96); MONOCYTES # (AUTO) 0.5 /CMM (0.1-1.30); NEUTROPHILS # (AUTO) 3.1 /CMM (1.8-8.9); NEUTROPHILS % (AUTO) 67.1 % (43.0-81.0); PLATELET COUNT (AUTO) 213 /CMM (150-450); RDW COEFFICIENT OF VARIATION 15.2 (11.5-15.0); RED BLOOD CELL COUNT(AUTO) 3.79 MIL/uL (4.5-6.0); WHITE BLOOD COUNT (AUTO) 4.7 K/uL (4.3-11.0)
[2018-05-03 06:43] LABS: CALCIUM, SERUM 8.6 mg/dL (8.5-10.1); CARBON DIOXIDE 22 mmol/L (21-32); CHLORIDE 106 mmol/L (98-107); CREATININE 0.8 mg/dL (0.6-1.3); GLUCOSE 89 mg/dL (74-106); MAGNESIUM 1.9 mg/dL (1.8-2.4); POTASSIUM 3.9 mmol/L (3.5-5.1); SODIUM SERUM 137 mmol/L (136-145); UREA NITROGEN, BLOOD 15 mg/dL (7-18)
[2018-05-03 06:46] LABS: PREALBUMIN 10.8 MG/DL (18.0-35.7)
[2018-05-03 08:00] VITALS: BP 144/75
[2018-05-03 08:01] VITALS: BP 144/75
[2018-05-03] MEDS: HALOPERIDOL 5 MG TABLET PO SCH ×3 (08:20→17:22)
[2018-05-03] MEDS: PANTOPRAZOLE 40 MG TABLET.DR PO SCH (08:20)
[2018-05-03] MEDS: ASPIRIN EC 325 MG TABLET.DR PO SCH (08:20)
[2018-05-03] MEDS: GABAPENTIN 300 MG CAPSULE PO SCH ×3 (08:21→17:22)
[2018-05-03] MEDS: BENZTROPINE MESYLATE (1 MG) 1 MG TABLET PO SCH ×3 (08:21→17:22)
[2018-05-03] MEDS: MULTIVIT, IRON, MIN NO. 8, FA 1 TAB PO SCH (08:21)
[2018-05-03] MEDS: DOCUSATE SODIUM 100 MG CAPSULE PO SCH ×2 (08:21→17:22)
[2018-05-03] MEDS: PROSOURCE / PROSTAT (PYXIS) 30 ML UDC PO SCH (09:41)
--- NOTE | 2018-05-03 10:21 | NUR ---
RN NOTES SPUTUM SPECIMEN COLLECTED PLACED IN REFRIGERATOR LAB CALLED FOR NURSE RESEARCHER
[2018-05-03] MEDS: SOD FERRIC GLUC 125 MG in IV NS 0.9% 100 ML IV SCH ×2 (14:28→14:35)
[2018-05-03 16:16] VITALS: BP 144/76
--- NOTE | 2018-05-03 18:35 | NUR ---
RN NOTES PATIENT AWAKE ALERT AND VERBALLY RESPONSIVE CONFUSED ABLE TO MAKE NEEDS KNOWN. RESPIRATIONS EVEN AND UNLABORED. IV ACCESS PATENT AND INTACT NO REDNESS OR INFILTRATION NOTED. IN NO APPARENT PAIN OR DISCOMFORT. KEPT CLEAN DRY AND COMFORTABLE CALL LIGHT WITHIN EASY REACH WILL CONTINUE TO MONITOR AND ENDORSE TO NEXT SHIFT FOR CONTINUITY OF CARE
--- NOTE | 2018-05-03 19:30 | NUR ---
RN NOTES RECEIVED PATIENT IN BED AWAKE, AO X 2-3, ABLE TO MAKE NEEDS KNOWN. NO ACUTE DISTRESS NOTED. DENIES ANY PAIN AT THIS TIME. AFEBRILE. IV SITE PATENT, INTACT; IVF INFUSING ORDERED. SAFETY REMINDERS GIVEN. ON LOW BED WITH BILATERAL UPPER SIDE RAILS UP. CALL [place] WITHIN EASY REACH. WILL CONTINUE TO MONITOR.
[2018-05-03 20:00] VITALS: BP 107/60
[2018-05-03 20:05] VITALS: BP 107/60
[2018-05-03] MEDS ORDERED: LEVOFLOXACIN (500MG) 500 MG TABLET PO SCH (21:00)
[2018-05-03] MEDS: SENNOSIDES 8.6 MG TABLET PO SCH (21:08)
[2018-05-03] MEDS: TAMSULOSIN 0.4 MG CAP.SR.24H PO SCH (21:08)
[2018-05-03] MEDS: QUETIAPINE FUMARATE 100 MG TABLET PO SCH (21:08)
[2018-05-04] MEDS: IV NS 0.9% 1,000 ML IV PRN (06:24)
--- NOTE | 2018-05-04 06:30 | NUR ---
RN NOTES PATIENT AWAKE. RESPIRATIONS EVEN. DENIES ANY PAIN AT THIS TIME. DUE MEDS GIVEN WITH NO ASE NOTED. NEEDS ATTENDED. KEPT CLEAN, DRY, AND COMFORTABLE. SAFETY PRECAUTIONS AND COMFORT MEASURES IN PLACE. WILL GIVE REPORT TO DAY SHIFT FOR CONTINUITY OF CARE.
[2018-05-04] MEDS: PANTOPRAZOLE 40 MG TABLET.DR PO SCH (06:59)
[2018-05-04] MEDS: HYDROCODONE/APAP 5/325MG 1 EACH TABLET PO PRN (06:59)
--- NOTE | 2018-05-04 07:20 | NUR ---
RN NOTES PATIENT A/OX2-3, VERBALLY RESPONSIVE, BREATHING EVEN AND UNLABORED. KEPT NPO AT THIS TIME FOR SAFETY, WAITING ON ST EVAL. LFA PIV PATENT AND INTACT, NS RUNNING AT 75ML/HR. NEEDS ATTENDED AND MET, CALL LIGHT WITHIN REACH, WILL CONTINUE TO MONITOR.
[2018-05-04 07:37] VITALS: BP 144/83
[2018-05-04] MEDS: MULTIVIT, IRON, MIN NO. 8, FA 1 TAB PO SCH (08:30)
[2018-05-04] MEDS: ASPIRIN EC 325 MG TABLET.DR PO SCH (08:30)
[2018-05-04] MEDS: GABAPENTIN 300 MG CAPSULE PO SCH ×2 (08:31→13:46)
[2018-05-04] MEDS: BENZTROPINE MESYLATE (1 MG) 1 MG TABLET PO SCH ×2 (08:31→13:46)
[2018-05-04] MEDS: DOCUSATE SODIUM 100 MG CAPSULE PO SCH (08:31)
[2018-05-04] MEDS: PROSOURCE / PROSTAT (PYXIS) 30 ML UDC PO SCH (08:34)
[2018-05-04] MEDS: HALOPERIDOL 5 MG TABLET PO SCH ×2 (08:34→13:46)
[2018-05-04] MEDS: SOD FERRIC GLUC 125 MG in IV NS 0.9% 100 ML IV SCH (14:57)
--- NOTE | 2018-05-04 16:18 | NUR ---
CARDIAC NURSE PRACTITIONER NOTE PATIENT A/OX2-3 BREATHING EVEN AND UNLABORED, IN ROOM AIR AND TOLERATING WELL, STILL NOTED WITH PRODUCTIVE COUGH, NO DISTRESS NOTED, SKIN ASSESSMENT COMPLETED, PHOTOS TAKEN AND PLACED IN CHART, PIV REMOVED AND COVERED WITH GAUZE AND TAPE, REPORT GIVEN TO PAVEL ABERNATHY AT [facility], INFORMED HIM THAT THE PATIENT HAS HAD NO BM SINCE ADMISSION, SUPPOSITORY AND PRUNE JUICE GIVEN, BOWEL SOUNDS ACTIVE, PATIENT HAS VOIDED MULTIPLE TIMES, BUT NO BM THIS SHIFT, BUT PATIENT DOES FEEL THE URGE OF DEFECATING SOON. SKIN CARE RENDERED, WOUND TREATMENT DONE. BELONGINGS RECONCILED AND COMPLETED. NEEDS ATTENDED. EMT CAME AND GAVE REPORT. PATIENT TRANSFERRED TO [facility]. PATIENT LEFT THE FACILITY IN NO DISTRESS.
== END 2018-05-04 16:18 | DRG 682 ==
LOC: ER 22:48 → TELE 05-01 00:21 → MED 05-01 11:34 → MEDSG2 05-01 20:01
PROVIDERS: ADMIT Internal Medicine; ATTEND Internal Medicine
DX: N17.0 Acute kidney failure with tubular necrosis (principal); I21.A1 Myocardial infarction type 2; E87.1 Hypo-osmolality and hyponatremia; E44.0 Moderate protein-calorie malnutrition; I50.32 Chronic diastolic (congestive) heart failure; R50.9 Fever, unspecified; E86.1 Hypovolemia; E83.42 Hypomagnesemia; E78.5 Hyperlipidemia, unspecified; F25.9 Schizoaffective disorder, unspecified; Z85.118 Personal history of other malignant neoplasm of bronchus and lung; Z86.73 Personal history of transient ischemic attack (TIA), and cerebral infarction without residual deficits; K21.9 Gastro-esophageal reflux disease without esophagitis; J44.9 Chronic obstructive pulmonary disease, unspecified; I48.91 Unspecified atrial fibrillation; I11.0 Hypertensive heart disease with heart failure; E88.09 Other disorders of plasma-protein metabolism, not elsewhere classified; N40.0 Benign prostatic hyperplasia without lower urinary tract symptoms; G30.9 Alzheimer's disease, unspecified; F02.80 Dementia in other diseases classified elsewhere, unspecified severity, without behavioral disturbance, psychotic disturbance, mood disturbance, and anxiety; L98.8 Other specified disorders of the skin and subcutaneous tissue; L53.8 Other specified erythematous conditions; J40 Bronchitis, not specified as acute or chronic; Z68.20 Body mass index [BMI] 20.0-20.9, adult; Z83.3 Family history of diabetes mellitus; Z82.3 Family history of stroke; Z82.49 Family history of ischemic heart disease and other diseases of the circulatory system; Z96.653 Presence of artificial knee joint, bilateral
CPT/HCPCS: 36415; 71045-TC; 80048-TC; 80053-TC; 80061-TC; 80076-TC; 81000-TC; 83540-TC; 83605-TC; 83735-TC; 83880; 84100-TC; 84134-TC; 84443-TC; 84484-TC; 85025-TC; 85730-TC; 87040-TC; 87070-TC; 87081-TC; 87086-TC; 92611-TC; 93307-TC; 97116-TC; 97530-TC; A4216; A4606; J1956; J2543; J2916; J3475; J7030; J7050; J7060; Z7610